=== PATIENT | male | born 1960 | race Caucasian/White ===

== ENCOUNTER → 2018-07-18 09:25 | Outpatient (CLI) | payer OTHER, SELFPAY ==
[2018-07-18 11:50] LABS: Absolute Lymphocyte Count 1.32 X10^3/ul (0.83-4.51); Absolute Neutrophil Count 2.9 X10^3/uL (2.0-7.7); Basophil# 0.02 X10^3/uL; Basophil% 0.4 % (0-1); Eosinophil# 0.16 X10^3/uL; Eosinophils% 3.3 % (0-5); Hematocrit 44.5 % (40-54); Lymphocyte # 1.32 X10^3/ul (4.0); Lymphocyte % 27.1 % (19-41); Mean Corp Hgb Conc 33.7 g/gl (32-36); Mean Corpuscular Hgb 31.1 pg (27.0-32.0); Mean Corpuscular Volume 92.1 fL (80-94); Mean Platelet Vol. 10.6 fl (6.2-12.0); Monocyte# 0.49 X10^3/uL; Monocyte% 10.1 % (0-10); Neutrophil # 2.86 X10^3/uL (2.7-7.7); Neutrophil % 58.7 % (47-70); Platelet Count 235 K/mm3 (150-450); RBC Distribution Width CV 13.1 % (11.6-14.6); RBC Distribution Width SD 43.3 fl (35.1-43.9); Red Blood Count 4.83 M/mm3 (4.6-6.2); White Blood Count 4.9 K/mm3 (4.4-11.0)
[2018-07-18 11:51] LABS: POSITIVE COUNT NO; POSITIVE DIFFERENTIAL NO; POSITIVE MORPHOLOGY NO
[2018-07-18 12:00] LABS: AST(SGOT) 22 U/L (15-37); Alanine Aminotransfer ALT/SGPT 37 U/L (16-61); Albumin, Serum 3.6 g/dL (3.2-5.0); Alkaline Phosphatase 64 U/L (45-117); Amylase 39 U/L (25-115); Anion Gap 10 (5-15); BUN 14 mg/dL (7-18); BUN/Creat Ratio 12.5 RATIO (10-20); Calcium,Total 8.7 mg/dL (8.5-10.1); Chloride 106 mmol/L (98-107); Creatinine, Serum 1.12 mg/dL (0.70-1.30); EST Glomerular Filtration Rate 71 mL/min (>60); Est Glom Filt Rate - Afr Amer 86 mL/min (>60); Globulin 3.5 g/dL (2.2-4.2); Glucose 86 mg/dL (74-106); Potassium 4.3 mmol/L (3.5-5.1); Protein, Total 7.1 g/dL (6.4-8.2); Sodium Level 142 mmol/L (136-145)
== END ==
PROVIDERS: Family Provider Family Medicine; PCP Family Medicine; Visit Provider Family Medicine
DX: R10.10 Upper abdominal pain, unspecified (principal)
CPT/HCPCS: 36415; 80053; 82150; 85025

== ENCOUNTER → 2018-07-21 07:23 | Outpatient (CLI) | payer OTHER, SELFPAY ==
--- NOTE | 2018-07-21 07:27 | US_ITS ---
HISTORY: UPPER ABD PAIN X 3 MONTHS TECHNIQUE: Smith scale and color doppler imaging was performed of the gallbladder. COMPARISON: None FINDINGS: The gallbladder shows normal distention and is without internal echoes, wall thickening, or pericholecystic edema. The common duct measures 4 mm in diameter which is normal. No intrahepatic biliary dilatation. With reference to the right kidney, the liver shows generalized increased echogenicity compatible with fatty infiltration. No focal hepatic lesions seen. No ascites. Poor visualization of the pancreas. The right kidney is visualized. No hydronephrosis. A 1.9 cm parapelvic cyst of the right kidney is suggested. US/Abdomen Limited IMPRESSION: 1. Normal gallbladder ultrasound. No biliary dilatation or acute disease identified. 2. Fatty liver. at 7378 Reported and signed by: Angel Wiley MD Electronically Signed: Angel Wiley, at 3:35 EDT Tel , Service support ,
== END ==
PROVIDERS: Family Provider Family Medicine; PCP Family Medicine; Referring Provider Family Medicine; Visit Provider Family Medicine
DX: R10.10 Upper abdominal pain, unspecified (principal)
CPT/HCPCS: 76705

== ENCOUNTER → 2018-08-18 09:54 | Outpatient (CLI) | payer OTHER, SELFPAY ==
--- NOTE | 2018-08-18 09:56 | RAD_ITS ---
STUDY: X-RAY - LEFT TIBIA AND FIBULA REASON FOR EXAM: Male, 58 years old. Mid shaft left tibia/fibula struck with sledgehammer couple of days ago. Redness and pain. TECHNIQUE: 3 view(s) of the tibia and fibula were obtained. COMPARISON: None. FINDINGS: Osseous structures intact. There appears to be mild induration in the subcutaneous fat anterior to the mid tibia. Unremarkable appearance of the evaluated portions of the knee joint and ankle joint. RAD/Tibia & Fibula 2 Views IMPRESSION: Mild superficial soft tissue contusion is suspected. No fracture. Electronically Signed: Tomas Rodriguez MD at 11:03 EST Tel , Service support ,
--- OUTSIDE RECORDS SUMMARY | 2018-10-13 05:05 | XMS RPT_ITS ---
:1960 Author Organization [facility] Care Team Providers Name Role Phone Jordin Parr Attending Unavailable Keshav, Jordin Referring Unavailable Parr, Jordin Primary Care Unavailable Jordin Parr Attending Unavailable Parr, Jordin Referring Unavailable Parr, Jordin Primary Care Unavailable Jordin Parr Attending Unavailable Parr, Jordin Primary Care Unavailable PROBLEMS PROBLEMS DATE TYPE CONDITION / CODE ATTENDING STATUS SOURCE 07/18/2018 Unknown R10.10 - Upper Jordin Parr Active [place] abdominal pain, Community unspecified / Hospital R10.10(ICD-10) Repository PROCEDURES PROCEDURES No Procedure Records FoundRESULTS RESULTS TIBIA AND FIBULA Observed: 08/18/2018 Status: F Source: [place] 2 VIEWS 9:[place] [facility] [place] [facility] Imaging Services [address] [place] [address] Tibia AND Fibula 2 Views MR#: [id number] Acct: [id number] Name: BERNARD CABELLO Rep #: [id number] : 1960 M 58 From: Tomas Rodriguez MD PCP: Jordin Parr MD Status: REG CLI Study: Tibia AND Fibula 2 Views Date of Exam: 08/18/18 Exam# [id number] Ordering Dr: Jordin Parr MD STUDY: X-RAY - LEFT TIBIA AND FIBULA REASON FOR EXAM: Male, 58 years old. Mid shaft left tibia/fibula struck with sledgehammer couple of days ago. Redness and pain. TECHNIQUE: 3 view(s) of the tibia and fibula were obtained. COMPARISON: None. FINDINGS: Osseous structures intact. There appears to be mild induration in the subcutaneous fat anterior to the mid tibia. Unremarkable appearance of the evaluated portions of the knee joint and ankle joint. RAD/Tibia AND Fibula 2 Views IMPRESSION: Mild superficial soft tissue contusion is suspected. No fracture. Electronically Signed: Tomas Rodriguez MD at 11:03 EST Tel , Service support , CC: Jordin Parr MD Business Development Officer: Signed ABDOMEN LIMITED Observed: 07/21/2018 Status: F Source: [place] 7:27 AM [facility] [place] [facility] Imaging Services [address] [place] [address] Abdomen Limited MR#: [id number] Acct: [id number] Name: BERNARD CABELLO Rep #: [id number] : 1960 M 57 From: Angel Wiley MD PCP: Jordin Parr MD Status: REG CLI Study: Abdomen Limited Date of Exam: 07/21/18 Exam# [id number] Ordering Dr: Jordin Parr MD HISTORY: UPPER ABD PAIN X 3 MONTHS TECHNIQUE: Smith scale and color doppler imaging was performed of the gallbladder. COMPARISON: None FINDINGS: The gallbladder shows normal distention and is without internal echoes, wall thickening, or pericholecystic edema. The common duct measures 4 mm in diameter which is normal. No intrahepatic biliary dilatation. With reference to the right kidney, the liver shows generalized increased echogenicity compatible with fatty infiltration. No focal hepatic lesions seen. No ascites. Poor visualization of the pancreas. The right kidney is visualized. No hydronephrosis. A 1.9 cm parapelvic cyst of the right kidney is suggested. US/Abdomen Limited IMPRESSION: 1. Normal gallbladder ultrasound. No biliary dilatation or acute disease identified. 2. Fatty liver. at 0337 Reported and signed by: Angel Wiley MD Electronically Signed: Angel Wiley, at 3:35 EDT Tel , Service support , CC: Jordin Parr MD Business Development Officer: Signed CBC W/DIFF, AUTOMATED Collected: 07/18/2018 Status: F Source: [place] 9:26 AM [facility] [place] TYPE CODE TESTS RESULT OUT OF RANGE REFERENCE UNITS LAB L100.1000 4.4-11.0 K/mm3 Normal WBC 4.9 LAB L100.1200 4.6-6.2 M/mm3 Normal RBC 4.83 LAB L100.1300 13.0-16.5 g/dl Normal HGB 15.0 LAB L100.1400 40-54 % Normal HCT 44.5 LAB L100.1500 80-94 fL Normal MCV 92.1 LAB L100.1600 27.0-32.0 pg Normal MCH 31.1 LAB L100.1700 32-36 g/gl Normal MCHC 33.7 LAB L100.1810 11.6-14.6 % Normal RDW CV 13.1 LAB L100.1820 35.1-43.9 fl Normal RDW SD 43.3 LAB L100.1900 150-450 K/mm3 Normal PLT 235 LAB L100.2000 6.2-12.0 fl Normal MPV 10.6 LAB L100.2100 47-70 % Normal NEUT% 58.7 LAB L100.2200 19-41 % Normal LY% 27.1 LAB L100.2300 0-10 % High MONO% 10.1 LAB L100.2400 0-5 % Normal EO% 3.3 LAB L100.2500 0-1 % Normal BASO% 0.4 LAB L100.2550 0.0-0.9 % Normal IM GRAN % 0.400 Result Comment: IG% - Immature Granulocytes (promyelocytes, myelocytes and metamyelocytes) > 1% indicates that a LEFT SHIFT is Present. LAB L100.2620 2.0-7.7 X10 3/uL Normal Absolute Neut 2.9 LAB L100.2720 0.83-4.51 X10 3/ul Normal Absolute Lymph 1.32 Performed By: #### L100.0100, L500.4050, L501.2400 #### [facility] [address] [place], [place], [id number] COMPREHENSIVE METABOLIC Collected: 07/18/2018 Status: F Source: [facility] 9:26 AM [facility] [place] TYPE CODE TESTS RESULT OUT OF RANGE REFERENCE UNITS LAB L501.0100 74-106 mg/dL Normal GLU 86 Result Comment: Please note revised GLUCOSE reference range effective 2017. LAB L501.1000 7-18 mg/dL Normal BUN 14 LAB L501.1100 0.70-1.30 mg/dL Normal CREAT,SERUM 1.12 Result Comment: The validity of the calculated GFR AND GFRAA in patients over 70 years has not been determined. Clinical correlation is essential. LAB L501.1110 >60 mL/min Normal EST GFR 71 Result Comment: Non- GFR Calc LAB L501.1115 >60 mL/min Normal EST GFR - AA 86 Result Comment: GFR Calc LAB L501.1300 10-20 RATIO Normal BUN/CRE 12.5 LAB L501.1500 6.4-8.2 g/dL T Normal PROT 7.1 LAB L501.1800 3.2-5.0 g/dL Normal ALB 3.6 LAB L501.1950 2.2-4.2 g/dL Normal GLOB 3.5 LAB L501.2000 0.9-2.4 RATIO Normal A/G 1.0 LAB L501.2200 8.5-10.1 mg/dL CA Normal 8.7 LAB L501.4100 15-37 U/L Normal AST 22 LAB L501.4305 45-117 U/L Normal ALK P 64 LAB L501.4405 16-61 U/L Normal ALT 37 LAB L501.4600 0.20-1.00 mg/dL T Normal BILI 0.70 LAB L501.5300 136-145 mmol/L NA Normal 142 LAB L501.5600 3.5-5.1 mmol/L K Normal 4.3 LAB L501.5900 98-107 mmol/L CL Normal 106 LAB L501.6100 21.0-32.0 mmol/L Normal CO2 26.0 LAB L501.6200 5-15 Normal GAP 10 Performed By: #### L100.0100, L500.4050, L501.2400 #### [facility] [address] [place], [address] AMYLASE Collected: 07/18/2018 Status: F Source: [place] 9:26 AM [facility] [place] TYPE CODE TESTS RESULT OUT OF RANGE REFERENCE UNITS LAB L501.2400 25-115 U/L Normal GONZALES 39 Performed By: #### L100.0100, L500.4050, L501.2400 #### [facility] [address] [facility] [place], [address] ALLERGIES ALLERGIES No Allergies Records FoundENCOUNTERS ENCOUNTERS ADMIT/DISCHARGE ACCOUNT ADMITTING ENCOUNTER LOCATION SOURCE NUMBER CLASS 08/18/2018 [id number] [facility] 0 [facility] ing:[facility] Repository 07/21/2018 [id number] [facility] 7 [facility] ing: Repository 07/18/2018 [id number] [facility] 7 [facility] ing:[facility] Repository PAYERS PAYERS ENCOUNTER GUARANTOR PAYER SUBSCRIBER SOURCE 08/18/2018 BERNARD A Primary BERNARD A [place] [id number] CR Insurance:MEDICAL GALBRAITHDOB: [address] [id number] [address]Ayk: Number: Repository [id number] (HP) Date:2228-20-37[address], [place] [address]IP: 08/18/2018 Secondary NOT GIVENUNK [place] Insurance:SELF PAY [facility] Number: Effective Repository Date:2018-08-18 07/21/2018 BERNARD A Primary BERNARD A [place] [id number] CR Insurance:MEDICAL GALBRACLEVELAND CLINICDOB: [address] [id number] [address]Lyv: Number: Repository [id number] () Date:3390-62-15[address], [place] [address]RG: 07/21/2018 Secondary NOT GIVENUNK [place] Insurance:SELF PAY [facility] Number: Effective Repository Date:2018-07-18 07/18/2018 Bernard A Primary Bernardchivo [place] [id number] Insurance[facility] [id number], Number: Repository [place] [id number]: [id number] Date:[id number] BOX () [address] [place] [address]YB: 07/18/2018 Secondary NOT GIVENUNK [place] Insurance:SELF PAY [facility] Number: Effective Repository Date:2018-07-18
== END ==
PROVIDERS: Family Provider Family Medicine; PCP Family Medicine; Referring Provider Family Medicine; Visit Provider Family Medicine
DX: S80.12XA Contusion of left lower leg, initial encounter (principal)
CPT/HCPCS: 73590

== ENCOUNTER → 2020-05-09 | Outpatient (CLI) | payer OTHER, SELFPAY ==
[2020-05-09 10:11] LABS: Absolute Lymphocyte Count 1.07 X10^3/uL (0.83-4.51); Absolute Neutrophil Count 3.2 X10^3/uL (2.0-7.7); Basophil# 0.03 X10^3/uL; Basophil% 0.6 % (0-1); Eosinophil# 0.25 X10^3/uL; Hemoglobin 14.4 g/dL (13.0-16.5); Lymphocyte # 1.07 X10^3/ul (4.0); Lymphocyte % 21.4 % (19-41); Mean Corp Hgb Conc 32.7 g/dL (32-36); Mean Corpuscular Hgb 30.6 pg (27.0-32.0); Mean Corpuscular Volume 93.4 fL (80-94); Mean Platelet Vol. 10.6 fl (6.2-12.0); Monocyte# 0.42 X10^3/uL; Monocyte% 8.4 % (0-10); NRBC Flagged by Analyzer 0 % (0-5); Neutrophil # 3.22 X10^3/uL (2.7-7.7); Neutrophil % 64.2 % (47-70); Platelet Count 231 K/mm3 (150-450); RBC Distribution Width CV 12.7 % (11.6-14.6); RBC Distribution Width SD 43.9 fl (35.1-43.9); Red Blood Count 4.71 M/mm3 (4.6-6.2)
[2020-05-09 10:18] LABS: Anion Gap 3 (5-15); BUN 14 mg/dL (7-18); BUN/Creat Ratio 10.8 RATIO (10-20); Calcium,Total 8.5 mg/dL (8.5-10.1); Chloride 110 mmol/L (98-107); Cholesterol 157 mg/dL (200); EST Glomerular Filtration Rate 60 mL/min (>60); Est Glom Filt Rate - Afr Amer 72 mL/min (>60); Glucose 85 mg/dL (74-106); High Density Lipoprotein 38 mg/dL; Potassium 4.1 mmol/L (3.5-5.1); Sodium Level 141 mmol/L (136-145); Triglycerides 197 mg/dL; Very Low Density Lipoprotein 39 mg/dL (5-40)
[2020-05-09 10:34] LABS: Partial Thromboplast Time 46.9 Seconds (24.1-36.2)
[2020-05-13 09:36] LABS: Dilute Prothrombin Time (dPT) 57.6 sec (0.0-55.0); Dilute Russell Viper Venom 174.4 sec (0.0-47.0); Hexagonal Phase Phospholipid 2 5 sec (0-11); PTT-LA Mix 53.6 sec (0.0-48.9); Protein C Antigen 102 % (60-150); Protein C, Functional 142 % (73-180); Thrombin Time 18.9 sec (0.0-23.0); dPT Confirm Ratio 0.76 Ratio (0.00-1.40)
[2020-05-13 10:48] LABS: Antithrombin 3 Function 127 % (75-135); Interpretation Comment: (.)
== END | disposition home or self-care (01) ==
PROVIDERS: PCP Family Medicine; Referring Provider Family Medicine; Visit Provider Family Medicine
DX: I26.99 Other pulmonary embolism without acute cor pulmonale (principal); Z13.220 Encounter for screening for lipoid disorders; Z13.1 Encounter for screening for diabetes mellitus
CPT/HCPCS: 36415; 80048; 80061; 85025; 85300; 85302; 85303; 85305; 85306; 85730

== ENCOUNTER → 2020-05-30 | Outpatient (CLI) | payer OTHER, SELFPAY ==
[2020-05-30 18:14] LABS: PSA,Total - Annual Screen 0.44 ng/mL (0.00-4.00)
== END | disposition home or self-care (01) ==
LOC: MTLAB 14:20
PROVIDERS: PCP Family Medicine; Referring Provider Family Medicine; Visit Provider Family Medicine
DX: Z12.5 Encounter for screening for malignant neoplasm of prostate (principal)
CPT/HCPCS: 36415; 84153; G0103

== ENCOUNTER → 2022-01-28 | Outpatient (CLI) | payer OTHER, SELFPAY ==
[2022-01-28 07:29] LABS: Absolute Neutrophil Count 2.9 X10^3/uL (2.0-7.7); Basophil# 0.04 X10^3/uL; Basophil% 0.7 % (0-1); Eosinophil# 0.25 X10^3/uL; Eosinophils% 4.6 % (0-5); Hematocrit 44.5 % (40-54); Hemoglobin 14.7 g/dL (13.0-16.5); Lymphocyte % 31.3 % (19-41); Mean Corpuscular Hgb 30.4 pg (27.0-32.0); Mean Corpuscular Volume 91.9 fL (80-94); Mean Platelet Vol. 10.1 fl (6.2-12.0); Monocyte# 0.55 X10^3/uL; Monocyte% 10.1 % (0-10); NRBC Flagged by Analyzer 0 % (0-5); Neutrophil # 2.88 X10^3/uL (2.7-7.7); Neutrophil % 53.1 % (47-70); Platelet Count 255 K/mm3 (150-450); RBC Distribution Width CV 12.7 % (11.6-14.6); RBC Distribution Width SD 42.5 fl (35.1-43.9); Red Blood Count 4.84 M/mm3 (4.6-6.2); White Blood Count 5.4 K/mm3 (4.4-11.0)
[2022-01-28 07:58] LABS: AST(SGOT) 22 U/L (15-37); Alanine Aminotransfer ALT/SGPT 32 U/L (16-61); Albumin, Serum 3.6 g/dL (3.2-5.0); Alkaline Phosphatase 62 U/L (45-117); Anion Gap 5 (5-15); BUN 18 mg/dL (7-18); BUN/Creat Ratio 16.5 RATIO (10-20); Calcium,Total 8.8 mg/dL (8.5-10.1); Chloride 107 mmol/L (98-107); Cholesterol 161 mg/dL (200); Creatinine, Serum 1.09 mg/dL (0.70-1.30); EST Glomerular Filtration Rate 73 mL/min (>60); Est Glom Filt Rate - Afr Amer 88 mL/min (>60); Globulin 3.6 g/dL (2.2-4.2); Glucose 95 mg/dL (74-106); High Density Lipoprotein 37 mg/dL; Protein, Total 7.2 g/dL (6.4-8.2); Sodium Level 139 mmol/L (136-145); Thyroid Stim Hormone (TSH) 1.98 uIU/mL (0.358-3.74); Triglycerides 178 mg/dL; Very Low Density Lipoprotein 36 mg/dL (5-40)
== END | disposition home or self-care (01) ==
LOC: LAB 06:11
PROVIDERS: Referring Provider Registered Nurse; Visit Provider Registered Nurse
DX: R00.2 Palpitations (principal)
CPT/HCPCS: 36415; 80053; 80061; 84439; 84443; 85025

== ENCOUNTER → 2022-04-16 | Outpatient (CLI) | payer OTHER, SELFPAY ==
--- NOTE | 2022-04-16 12:50 | ECHOD_ITS ---
Reason For Study: Ventricular Premature Depolarization Procedure This was a 2D Doppler, Color Flow transthoracic echocardiogram. Exam performed in department. Left Ventricle Normal LV size. The estimated ejection fraction is 60 %. No evidence for diastolic dysfunction. No regional wall motion abnormalities noted. Right Ventricle Normal RV size. Normal systolic function. Atria Normal left atrium. Normal right atrium. No doppler evidence for ASD. Mitral Valve There is no mitral valve stenosis. No mitral valve insufficiency. Tricuspid Valve There is no tricuspid stenosis. Trivial tricuspid valve insufficiency. Pulmonary artery systolic pressure is 25 mmHg. Aortic Valve Trisinus/trileaflet aortic valve. There is no aortic stenosis. Trivial aortic valve insufficiency. Pulmonic Valve There is no pulmonic valvular stenosis. No pulmonic valve insufficiency. Great Vessels Normal aortic root. Pericardium/Pleural No pericardial effusion. MMode/2D Measurements & Calculations LVIDd: 4.7 cm IVSd: 0.90 cm Ao root diam: 3.2 cm LVIDs: 3.2 cm LVPWd: 1.2 cm LA dimension: 4.0 cm RVDd: 3.7 cm FS: 32.5 % LAV(MOD-bp): 53.0 ml LA A4 area: 18.4 cm2 RA A4 area: 14.6 cm2 LAV(MOD-bp) Indexed: 22.0 ml/m2 LAV(MOD-sp2): 54.6 ml LAV(MOD-sp4): 47.3 ml Time Measurements MV dec time: 0.25 sec Doppler Measurements & Calculations MV E max delon: 51.8 cm/sec MV V2 max: 59.7 cm/sec MV P1/2t max delon: 55.1 cm/sec MV A max delon: 64.2 cm/sec MV max P.4 mmHg MV P1/2t: 80.9 msec MV E/A: 0.81 MV V2 mean: 35.7 cm/sec MV dec slope: 199.4 cm/sec2 MV mean P.59 mmHg MVA(P1/2t): 2.7 cm2 MV V2 VTI: 19.3 cm Ao V2 max: 114.7 cm/sec LV V1 max: 102.2 cm/sec PA V2 max: 164.2 cm/sec Ao max P.3 mmHg LV V1 max P.2 mmHg PA V2 mean: 110.3 cm/sec Ao V2 mean: 77.5 cm/sec LV V1 mean P.3 mmHg Ao mean P.8 mmHg LV V1 mean: 71.1 cm/sec Ao V2 VTI: 24.2 cm LV V1 VTI: 22.3 cm TR max delon: 223.6 cm/sec TR max P.0 mmHg ECHO/Echo Complete Interpretation Summary The estimated ejection fraction is 60 %. No evidence for diastolic dysfunction. Trivial aortic valve insufficiency. Ordering Physician: Makenzie Haddad Referring Physician: Makenzie Haddad Performed By: Wilberto Delacruz RCS
== END | disposition home or self-care (01) ==
PROVIDERS: PCP Nurse Practitioner Family; Referring Provider Family Medicine; Visit Provider Family Medicine
DX: I49.3 Ventricular premature depolarization (principal)
CPT/HCPCS: 93306

== ENCOUNTER → 2022-07-05 | Outpatient (CLI) | payer OTHER, SELFPAY ==
--- NOTE | 2022-07-05 11:20 | STRESSREP_ITS ---
Stress Test Report Date: 07-05-2022 Procedure: Exercise tolerance test/imaging study Indications: Shortness of breath/dyspnea on exertion; fatigue; palpitations; paroxysmal ventricular tachycardia; MARISOL Consent: Per the patient Procedure: The patient exercised on a Jakob protocol for 9 minutes completing Stage III achieving a peak heart rate of 146 bpm (92% predicted maximal heart rate) with resting blood pressure of 116/80 mmHg and a peak blood pressure 164/72 mmHg and a peak MET capacity of 10 METs. The baseline ECG demonstrated normal sinus rhythm. The peak exercise ECG demonstrated no obvious ECG change. There was an isolated PVC and an isolated ventricular couplet during exercise. The functional capacity was considered good. There was no complaint of chest discomfort during exercise or recovery. The examination was discontinued secondary to dyspnea. Impression: 1. Technically adequate (percent predicted maximal heart rate greater than 85%) exercise tolerance test 2. Peak exercise ECG with no obvious ECG changes 3. There were no cardiac dysrhythmias pretest, during exercise, or recovery 4. Nuclear images pending Myocardial perfusion imaging study: Technique: The patient was injected with 14.7 mCi of technetium 99m Cardiolite and subsequently rest SPECT Cardiolite nuclear imaging was obtained in the horizontal long, vertical long, and short axis views. The patient exercised on a Jakob protocol for 9 minutes completing Stage III achieving a peak heart rate of 146 bpm (92% predicted maximal heart rate) with resting blood pressure of 116/80 mmHg and a peak blood pressure 164/72 mmHg and a peak MET capacity of 10 METs. The patient was injected with 44.5 mCi of technetium 99m Cardiolite and subsequently stress SPECT Cardiolite nuclear imaging was obtained in the horizontal long, vertical long, and short axis views. A gated Cardiolite study at peak stress was obtained. Interpretation: Rest and stress SPECT Cardiolite nuclear imaging status post realignment, normalization, and attenuation correction, demonstrates at rest the appearance of a small area of diminished myocardial perfusion/tracer uptake in the distal anterior lateral segments which appears to improve/normalize following stress. There is end systolic thickening and brightening. The gated Cardiolite study demonstrates myocardial thickening and inward wall motion. The reported LVEF is 66%. Impression: 1. Rest and stress SPECT Cardiolite nuclear imaging demonstrate resting myocardial perfusion changes which appear to improve/normalize following stress appearing compatible with shifting soft tissue attenuation/artifact with no myocardial perfusion changes considered diagnostic for associated stress-induced myocardial ischemia. 2. The gated Cardiolite study reports an LVEF of 66%. This note was generated with [employer] software. It may contain incorrect words, spelling, and punctuation that were not noted in checking the note before signing.
== END | disposition home or self-care (01) ==
LOC: CVS 06:21
PROVIDERS: PCP Family Medicine; Referring Provider Internal Medicine Cardiovascular Disease; Visit Provider Internal Medicine Cardiovascular Disease
DX: I47.20 Ventricular tachycardia, unspecified (principal); R00.2 Palpitations; I49.3 Ventricular premature depolarization; R06.02 Shortness of breath
CPT/HCPCS: 78452; 93017; A9500; A4216

== ENCOUNTER → 2022-07-09 | Outpatient (CLI) | payer OTHER, SELFPAY | END | disposition home or self-care (01) | LOC: SL 21:32 | PROVIDERS: PCP Family Medicine; Visit Provider Nurse Practitioner Acute Care | DX: G47.33 Obstructive sleep apnea (adult) (pediatric) (principal) | CPT/HCPCS: 95811 ==

== ENCOUNTER → 2022-07-28 | Outpatient (CLI) | payer OTHER, SELFPAY | END | disposition home or self-care (01) | LOC: SL 09:20 | PROVIDERS: PCP Family Medicine; Referring Provider Nurse Practitioner Acute Care; Visit Provider Nurse Practitioner Acute Care | DX: Z00.00 Encounter for general adult medical examination without abnormal findings (principal) ==

== ENCOUNTER → 2024-03-09 | Outpatient (CLI) | payer OTHER, SELFPAY ==
[2024-03-09 10:08] LABS: Absolute Lymphocyte Count 1.35 X10^3/uL (0.83-4.51); Absolute Neutrophil Count 3.3 X10^3/uL (2.0-7.7); Basophil# 0.04 X10^3/uL; Basophil% 0.7 % (0-1); Eosinophils% 3.7 % (0-5); Hematocrit 43.9 % (40-54); Hemoglobin 14.3 g/dL (13.0-16.5); Lymphocyte # 1.35 X10^3/ul (0.83-4.51); Lymphocyte % 25.1 % (19-41); Mean Corp Hgb Conc 32.6 g/dL (32-36); Mean Corpuscular Volume 92.2 fL (80-94); Mean Platelet Vol. 10.4 fl (6.2-12.0); Monocyte# 0.51 X10^3/uL; Monocyte% 9.5 % (0-10); NRBC Flagged by Analyzer 0 % (0-5); Neutrophil # 3.26 X10^3/uL (2.7-7.7); Neutrophil % 60.8 % (47-70); Platelet Count 245 K/mm3 (150-450); RBC Distribution Width CV 12.5 % (11.6-14.6); RBC Distribution Width SD 42.5 fl (35.1-43.9); Red Blood Count 4.76 M/mm3 (4.6-6.2); White Blood Count 5.4 K/mm3 (4.4-11.0)
[2024-03-09 10:40] LABS: Vitamin D,25 Hydroxy 40.2 ng/mL
[2024-03-09 10:59] LABS: AST(SGOT) 22 U/L (15-37); Alanine Aminotransfer ALT/SGPT 30 U/L (16-61); Albumin, Serum 3.5 g/dL (3.2-5.0); Alkaline Phosphatase 69 U/L (45-117); Anion Gap 4 (5-15); BUN 19 mg/dL (7-18); Calcium,Total 8.8 mg/dL (8.5-10.1); Chloride 107 mmol/L (98-107); Cholesterol 161 mg/dL (200); Creatinine, Serum 1.12 mg/dL (0.70-1.30); EST Glomerular Filtration Rate 70 mL/min (>60); Est Glom Filt Rate - Afr Amer 85 mL/min (>60); Globulin 3.6 g/dL (2.2-4.2); Glucose 95 mg/dL (74-106); High Density Lipoprotein 38 mg/dL; PSA,Total - Annual Screen 1.12 ng/mL (0.00-4.00); Potassium 4.1 mmol/L (3.5-5.1); Protein, Total 7.1 g/dL (6.4-8.2); Sodium Level 138 mmol/L (136-145); Thyroid Stim Hormone (TSH) 1.97 uIU/mL (0.358-3.74); Triglycerides 175 mg/dL; Very Low Density Lipoprotein 35 mg/dL (5-40)
== END | disposition home or self-care (01) ==
LOC: MTLAB 07:20
PROVIDERS: PCP Family Medicine; Referring Provider Family Medicine; Visit Provider Family Medicine
DX: G47.33 Obstructive sleep apnea (adult) (pediatric) (principal); Z13.220 Encounter for screening for lipoid disorders; Z13.1 Encounter for screening for diabetes mellitus; N62 Hypertrophy of breast; R63.5 Abnormal weight gain; Z12.5 Encounter for screening for malignant neoplasm of prostate; Z13.21 Encounter for screening for nutritional disorder
CPT/HCPCS: 36415; 80053; 80061; 82306; 84153; 84403; 84443; 85025; G0103

== ENCOUNTER 2024-04-20 08:47 | Day surgery (SDC) | payer OTHER, SELFPAY ==
[2024-04-20] VITALS (9 sets, daily range): BP systolic 99–118; BP diastolic 57–87; PULSE 63–76; RESP 16–18; TEMP 35.8–36.6; O2SAT 92–99; BMI 35.3
[2024-04-20] MEDS: Lactated Ringers 1,000 ML 15 ML IV (09:20)
--- NOTE | 2024-04-20 09:41 | PRE.ANES_ITS ---
ASA Classification* ASA Classification ASA Classification: 3 Assessment & Plan Anesthesia* Anesthesia Assessment Anesthesia Assessment: Discussed sedation and/or anesthesia options, risks, benefits, and alternatives with patient/parents/legal guardian/POA. Questions invited. The patient/parents/legal guardian/POA seems to understand and agrees to proceed with anesthesia plan. Reviewed the physical assessment, medical history, allergy history and patient home medications list prior to surgery/procedure/anesthetic and documented any changes. Performed airway and anesthesia risk assessments. Anesthesia Type Anesthesia Type: MAC Anesthesia Focused Assessment* Temperature: 96.5 F Pulse Rate: 76 Blood Pressure: 118/87 Respiratory Rate: 16 Pulse Ox: 95 Airway Assessment Mouth opens: >3 cm Mallampati Score: II Focused Labs Anesthesia Preop lab: CBC WBC 5.4 K/mm3 (4.4-11.0) 03/09/24 07:23 RBC 4.76 M/mm3 (4.6-6.2) 03/09/24 07:23 Hgb 14.3 g/dL (13.0-16.5) 03/09/24 07:23 Hct 43.9 % (40-54) 03/09/24 07:23 Plt Count 245 K/mm3 (150-450) 03/09/24 07:23 CHEMISTRY Potassium 4.1 mmol/L (3.5-5.1) 03/09/24 07:23 Sodium 138 mmol/L (136-145) 03/09/24 07:23 BUN 19 mg/dL (7-18) H 03/09/24 07:23 Creatinine 1.12 mg/dL (0.70-1.30) 03/09/24 07:23 Glucose 95 mg/dL (74-106) 03/09/24 07:23 TSH 1.97 uIU/mL (0.358-3.74) 03/09/24 07:23 COAG Pre-Assessment Diagnosis/Proposed Procedure Planned Operative Procedure(s): CSCOPE Anesthesia History 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 When Was Last Pacemaker Check QUESTION #4 FULL TEXT: You/Your Family Experience fever (hyperthermia) with Anesthesia Last Oral Intake Last Oral intake: Last Oral Intake NPO since 05:00 04/20/24 09:16 Meds taken in AM with sips of No 04/20/24 09:16 water? Meds patient instructed to take am of surgery PONV PONV - foundry manager: PONV - foundry manager Female No 04/17/24 09:28 HX of Motion Sickness No 04/17/24 09:28 HX of N/V After Surgery No 04/17/24 09:28 Non-Smoker Yes 04/17/24 09:28 Duration of Surgery greater No 04/17/24 09:28 than 60 minutes Number of Risk Factors 1 04/17/24 09:28 PONV Score Low Risk 04/17/24 09:28 Height & Weight Height & Weight: Anesthesia: Height & Weight Height 6 ft 1 in 04/20/24 09:16 Weight: 121.4 kg 04/20/24 09:16 Body Mass Index (BMI) 35.3 04/20/24 09:16 Respiratory Assessment Respiratory Assessment - foundry manager: Respiratory Tract Infection Hx - foundry manager Hx Respiratory Tract Infection No 04/17/24 09:28 STOP Sleep Apnea STOP Sleep Apnea - foundry manager: STOP Sleep Apnea - foundry manager Hx Hypertension No 04/17/24 09:28 Hx Sleep Apnea Yes 04/17/24 09:28 CPAP No 04/17/24 09:28 BIPAP Yes 04/17/24 09:28 Do you snore loudly (louder No 04/17/24 09:28 than talking or can be heard Do you often feel tired/ No 04/17/24 09:28 fatigued/ sleepy during daytime? Has anyone observed you stop No 04/17/24 09:28 breathing during sleep? STOP Results Positive 04/17/24 09:28 QUESTION #5 FULL TEXT : Do you snore loudly (louder than talking or can be heard through closed doors)? 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 Specify any problems Hx of Preganancy in last 3 N/A 04/17/24 09:28 Months Nurse Filling Out Transfusion NBUCHER 04/17/24 09:28 & Questions: Date: 04/17/24 04/17/24 09:28 Time: 09:29 04/17/24 09:28 Patient unable to answer at this time (ie. confused, unrespo /Reproduction History /Reproductive History - foundry manager: /Reproductive Hx- foundry manager Hx Now No 04/17/24 09:28 Gestational Age (in weeks): EDC: Hx Hx Para Hx Section SAB No 04/17/24 09:28 Active Medications Active Medications: Current Medications Generic Name Dose Route Start Last Admin Trade Name Freq PRN Reason Stop Dose Admin Lactated Ringer's 1,000 mls @ 15 mls/hr 04/20/24 09:30 04/20/24 09:20 IV 15 mls/hr .Q48H AAKASH Administration PFSH Medical History Wears glasses Pulmonary embolism DVT (deep venous thrombosis) Non-smoker History of edema BiPAP (biphasic positive airway pressure) dependence Sleep apnea History of stress test History of echocardiogram Cardiology follow-up encounter MARISOL treated with BiPAP Dyspnea on exertion MARISOL (obstructive sleep apnea) Premature ventricular contraction Pulmonary embolism and infarction Hx of blood clots Cyst Epidermoid cyst of skin of chest Sleep apnea Home Medications ?Medication ?Instructions ?Recorded ?Last Taken ?Type rivaroxaban 20 mg tablet 20 mg PO DAILY 09/08/20 04/14/24 History multivitamin 1 tab PO DAILY 04/13/24 04/13/24 History Allergy/AdvReac Type Severity Reaction Status Date / Time No Known Allergies Allergy Verified 04/20/24 09:15 Family History Father Cancer Lung Surgical History Hx of colonoscopy History of incision and drainage Social History household members: spouse current occupational status: employed Smoking Status: Never smoker second hand exposure: No alcohol intake: never substance use type: does not use caffeine: Yes Review of Systems (Anesthesia) ROS Narrative System reviewed and no additional complaints, except as documented.
--- NOTE | 2024-04-20 10:16 | H&P.OPEN ---
[facility] - General General Date of Service: 04/20/24 Chief Complaint: Open access colonoscopy HPI Narrative BERNARD CABELLO, is a 63 M who presents screening colonoscopy. He confirms his preappointment questionnaire that he has not experienced any change in her bowel habits-and particularly denies any notice of blood. He also denies any family history of GI illness to include diverticulitis, inflammatory bowel disease, or colon cancer. Lastly he confirms that his prep was completed successfully and that his output is now clear. Specific to his health history, Mr. Cabello confirms that he has held his anticoagulation with Xarelto for 1 week prior to today's procedure. [facility] Medical History Wears glasses Pulmonary embolism DVT (deep venous thrombosis) Non-smoker History of edema BiPAP (biphasic positive airway pressure) dependence Sleep apnea History of stress test History of echocardiogram Cardiology follow-up encounter MARISOL treated with BiPAP Dyspnea on exertion MARISOL (obstructive sleep apnea) Premature ventricular contraction Pulmonary embolism and infarction Hx of blood clots Cyst Epidermoid cyst of skin of chest Sleep apnea Home Medications ?Medication ?Instructions ?Recorded ?Last Taken ?Type rivaroxaban 20 mg tablet 20 mg PO DAILY 09/08/20 04/14/24 History multivitamin 1 tab PO DAILY 04/13/24 04/13/24 History Allergy/AdvReac Type Severity Reaction Status Date / Time No Known Allergies Allergy Verified 04/20/24 09:15 Family History Father Cancer Lung Surgical History Hx of colonoscopy History of incision and drainage Social History household members: spouse current occupational status: employed Smoking Status: Never smoker second hand exposure: No alcohol intake: never substance use type: does not use caffeine: Yes Past Medical/Surgical History Planned Operation Planned Operative Procedure(s): CSCOPE Previous Hospitalizations/Surgeries HX Hospitalizations: No Any Problems With Anesthesia: No You/Your Family Experience Fever (Hyperthermia) With Anes: No Cholinesterase deficiency: No Cardiovascular Hx of Irregular Heartbeat and/or Afib: No Hx Heart Attack: No Hx Congestive Heart Failure: No Hx Rheumatic Fever: No Hx Hypertension: No Hx Pacemaker: No Respiratory HX of Shortness of Breath: No Hx Chronic Obstructive Pulmonary Disease (COPD): No Hx Asthma: No Hx Emphysema: No Hx Sleep Apnea: Yes CPAP: No BIPAP: Yes Hx Respiratory Tract Infection/Cold (presently): No Do You Snore Loudly (louder than talking or can be heard): No Do You Often Feel Tired/ Fatigued/ Sleepy Dring Daytime?: No Has Anyone Observed You Stop Breathing During Sleep?: No Result (for STOP score): Positive Smoking Status: Never smoker Gastrointestinal Hx Ulcer: No Neurological Hx Multiple Sclerosis: No Hx Parkinson's Disease: No Hx Head/Neck Injury: No Hx Headaches: No Hx Back Injury/Pain: No Does patient have nerve stimulator: No Blood Disorder Hx Hepatitis: No Hx Anemia: No Reproduction : No Musculoskeletal Hx Arthritis: No Hx Gout: No Endocrine Hx Diabetes: No Thyroid Disease: No Psycho/Social Hx Anxiety: No Hx Depression: No Hx Dementia: No Miscellaneous Hx Cancer: No Recent Exposure to Contagious Disease: No Allergies No Known Allergies Allergy (Verified 04/20/24 09:15) Discharge Is Pt Admitted From a Usp, or a Shelter: No After D/C, Where Do you Plan to Go: Return Home Vital Signs Vital Signs Vital Signs: 04/20/24 09:16 04/20/24 09:16 04/20/24 09:42 Temperature 96.5 F L 96.5 F L Temperature Source Temporal Pulse Rate 76 76 Respiratory Rate 16 16 Respiratory Pattern Normal Blood Pressure 118/87 H 118/87 H Blood Pressure Mean 97 Blood Pressure Source Monitor Blood Pressure Position Sitting Blood Pressure Location Right Arm Pulse Ox 95 95 Oxygen Delivery Method Room Air Weight Weight: 267 lb 10.259 oz Body Mass Index (BMI) 35.3 Physical Exam Const alert, oriented x3 and no apparent distress General Appearance: cooperative and comfortable Resp normal respiratory effort GI GI Narrative: No scars, obese, soft, nondistended, nontender to palpation, roughly 1.5 cm umbilical hernia containing fat present but is asymptomatic Assessment & Plan Assessment/Plan (1) Encounter for screening for malignant neoplasm of colon: PLAN: Patient is a 63-year-old gentleman who presents for screening colonoscopy given that it has been greater than 10 years in his lab since his last colonoscopy. He denies any significant findings in his prior investigation. He also denies any complaints going into today's procedure. He confirms that he has completed a prep and that he has also held his anticoagulation appropriately. Therefore we will proceed the endoscopy suite for screening colonoscopy. He and his are both informed that he should continue to hold his anticoagulation for 48 hours post procedure if biopsies are performed during today's exam. Surgery Risks - Colonoscopy Risks Include but are not Limited To: Risks include but are not limited to: Bleeding, perforation requiring further surgery, inability to complete colonoscopy requiring barium enema.
--- NOTE | 2024-04-20 11:03 | PCM.POST.ANE ---
Anesthesia: Postop Eval I Current Vital Signs Temperature: 97.1 F Pulse Rate: 70 Blood Pressure: 106/61 Respiratory Rate: 16 Pulse Ox: 92 Oxygen Delivery Method: Room Air Assessment Airway patent: Yes Spontaneous unlabored respirations: Yes Mental status: Asleep nausea: No Vomiting: No Anesthesia Complication: No Fluid Hydration Crystalloid volume administer (ml): 800 Total IV fluid infused: 800 Progress Note Anesthesia document: Postop Eval 1 completed: Yes
--- NOTE | 2024-04-20 11:06 | OP.COLON_ITS ---
Patient Name: Colt Hart Procedure Date: 04/20/2024 10:20 AM Date of : 1960 Age: 63 Procedure: Colonoscopy Indications: Screening for colorectal malignant neoplasm Providers: Joaquin Farfan MD Referring MD: Joaquin Farfan MD Medicines: See the Anesthesia note for documentation of the administered medications Patient Profile: Last Colonoscopy: more than 10 years ago. Complications: No immediate complications. Estimated blood loss: None. Procedure: Pre-Anesthesia Assessment: - The heart rate, respiratory rate, oxygen saturations, blood pressure, adequacy of pulmonary ventilation, and response to care were monitored throughout the procedure. After I obtained informed consent, the scope was passed under direct vision. Throughout the procedure, the patient's blood pressure, pulse, and oxygen saturations were monitored continuously. The Colonoscope was introduced through the anus and advanced to the cecum, identified by appendiceal orifice and ileocecal valve. The colonoscopy was performed without difficulty. The patient tolerated the procedure well. The quality of the bowel preparation was good. Scope In: 10:30:37 AM Scope Withdrawal Time 0 hours 15 minutes 2 seconds Scope Out: 10:54:23 AM Total Procedure Duration Time 0 hours 23 minutes 46 seconds Findings: The perianal and digital rectal examinations were normal. The entire examined colon appeared normal on direct and retroflexion views. No biopsies or other specimens were collected for this exam. Impression: - The entire examined colon is normal on direct and retroflexion views. Recommendation: - Discharge patient to home (via wheelchair). - Resume previous diet today. - Resume Xarelto (rivaroxaban) at prior dose tomorrow. Refer to managing physician for further adjustment of therapy. - Repeat colonoscopy in 10 years for screening purposes. - Telephone my office for study results in 1 week. Procedure Code(s): --- Professional --- G0121, Colorectal cancer screening; colonoscopy on individual not meeting criteria for high risk Diagnosis Code(s): --- Professional --- Z12.11, Encounter for screening for malignant neoplasm of colon CPT copyright 2021 [employer]. All rights reserved. The codes documented in this report are preliminary and upon rug cleaning supervisor review may be revised to meet current compliance requirements. Joaquin Farfan MD 04/20/2024 11:05:31 AM This report has been signed electronically. Number of Addenda: 0 Note Initiated On: 04/20/2024 10:20 AM
--- NOTE | 2024-04-20 11:06 | OP.CCLET_ITS ---
04/20/2024 Vick Washington Md Re : Colonoscopy procedure for Colt Hernandes Padmini This procedure was performed on Saturday, April 20, 2024. My impressions and recommendations are as follows: Impressions : - The entire examined colon is normal on direct and retroflexion views. Recommendations : - Discharge patient to home (via wheelchair). - Resume previous diet today. - Resume Xarelto (rivaroxaban) at prior dose tomorrow. Refer to managing physician for further adjustment of therapy. - Repeat colonoscopy in 10 years for screening purposes. - Telephone my office for study results in 1 week. My findings are described in the full procedure note, which is enclosed. If I can be of further assistance, please feel free to contact me at Doctor phone number(s): , Work: . Sincerely, Joaquin Farfan MD 04/20/2024 11:05:31 AM This report has been signed electronically.
--- NOTE | 2024-04-20 11:10 | PCM.POSTANE2 ---
Anesthesia Postop Eval I Sum Postop Eval Completion status Anesthesia document: Postop Eval 1 completed: Yes Anesthesia Postop Eval I Summary Anesthesia Postop Eval I Summary: Anesthesia Postop Eval I: Assessment Summary Airway patent Yes 04/20/24 11:04 [email or web address] Spontaneous unlabored Yes 04/20/24 11:04 [email or web address] respirations Mental status Asleep 04/20/24 11:04 [email or web address] nausea No 04/20/24 11:04 [email or web address] Vomiting No 04/20/24 11:04 [email or web address] Anesthesia Postop Eval I: Fluid Summary Crystalloid volume administer 800 04/20/24 11:04 [email or web address] (ml) Colloids volume administered ( ml) Blood Product volume administered (ml) Total IV fluid infused 800 04/20/24 11:04 [email or web address] Anesthesia Postop Eval I: Summary Notes Anesthesia Complication No 04/20/24 11:04 [email or web address] Anesthesia Complication Comment: Post-operative progress note Anesthesia: Postop Eval II Evaluation Mental status: Awake Pain Level: 0 nausea: No Vomiting: No Complications Anesthesia Complication: No
== END 2024-04-20 11:35 | disposition home or self-care (01) ==
LOC: EN 08:47 → AC 08:48
PROVIDERS: PCP Family Medicine; Referring Provider Surgery; Visit Provider Surgery
PROC: 0DJD8ZZ Inspection of Lower Intestinal Tract, Via Natural or Artificial Opening Endoscopic (ICD-10-PCS; CPT 45378; principal; 2024-04-20 09:55)
DX: Z12.11 Encounter for screening for malignant neoplasm of colon (principal); G47.33 Obstructive sleep apnea (adult) (pediatric); Z79.01 Long term (current) use of anticoagulants; Z86.718 Personal history of other venous thrombosis and embolism; Z86.711 Personal history of pulmonary embolism
CPT/HCPCS: 45378; J7120; J2405

== ENCOUNTER → 2024-05-02 | Outpatient (CLI) | payer OTHER, SELFPAY ==
[2024-05-04 19:07] LABS: Factor VIII Activity 127 % (56-140); VWD Studies Interp Report Note (.); von Willebrand Factor (vWF) Ag 289 % (50-200); von Willebrand Factor Activity 199 % (50-200)
== END | disposition home or self-care (01) ==
LOC: LAB 11:29
PROVIDERS: PCP Family Medicine; Referring Provider Family Medicine; Visit Provider Family Medicine
DX: Z79.01 Long term (current) use of anticoagulants (principal)
CPT/HCPCS: 36415; 85240; 85245; 85246

== ENCOUNTER → 2024-05-22 | Outpatient (CLI) | payer OTHER, SELFPAY | END | disposition home or self-care (01) | LOC: LABSPEC 09:35 | PROVIDERS: PCP Family Medicine; Referring Provider Surgery; Visit Provider Surgery | DX: Z01.818 Encounter for other preprocedural examination (principal); K46.9 Unspecified abdominal hernia without obstruction or gangrene | CPT/HCPCS: 87081 ==

== ENCOUNTER 2024-06-11 09:53 | Day surgery (SDC) | payer OTHER, SELFPAY ==
[2024-06-11] VITALS (12 sets, daily range): BP systolic 105–125; BP diastolic 64–85; PULSE 61–80; RESP 14–18; TEMP 35.5–36.8; O2SAT 92–98; BMI 35.4
--- NOTE | 2024-06-11 10:23 | EKG12_ITS ---
Test Reason : preop Blood Pressure : / mmHG Vent. Rate : 064 BPM Atrial Rate : 064 BPM P-R Int : 206 ms QRS Dur : 084 ms QT Int : 400 ms P-R-T Axes : 061 065 022 degrees QTc Int : 412 ms Normal sinus rhythm Normal ECG No previous ECGs available Confirmed by Joaquin Brizuela ([id number]), editorial intern CRISPIN ROSE ([id number]) on 06/11/2024 1:33:15 PM Referred By: Joaquin Farfan Confirmed By:Joaquin Brizuela
[2024-06-11] MEDS: Lactated Ringers 1,000 ML 15 ML IV (10:53)
[2024-06-11 11:05] LABS: Hematocrit 42.3 % (40-54); Hemoglobin 14.1 g/dL (13.0-16.5); Mean Corp Hgb Conc 33.3 g/dL (32-36); Mean Corpuscular Hgb 30.7 pg (27.0-32.0); Mean Corpuscular Volume 92.2 fL (80-94); Mean Platelet Vol. 9.8 fl (6.2-12.0); Platelet Count 261 K/mm3 (150-450); RBC Distribution Width CV 12.7 % (11.6-14.6); RBC Distribution Width SD 42.8 fl (35.1-43.9); Red Blood Count 4.59 M/mm3 (4.6-6.2); White Blood Count 5.2 K/mm3 (4.4-11.0)
--- NOTE | 2024-06-11 11:05 | PCM.PRE.AN2 ---
ASA Classification* ASA Classification ASA Classification: 2 Assessment & Plan Anesthesia* Anesthesia Assessment Anesthesia Assessment: Discussed sedation and/or anesthesia options, risks, benefits, and alternatives with patient/parents/legal guardian/POA. Questions invited. The patient/parents/legal guardian/POA seems to understand and agrees to proceed with anesthesia plan. Reviewed the physical assessment, medical history, allergy history and patient home medications list prior to surgery/procedure/anesthetic and documented any changes. Performed airway and anesthesia risk assessments. Anesthesia Type Anesthesia Type: General (Will consider Otter scope intubation.) History Source History Obtained from:: Patient and Chart Anesthesia Focused Assessment* Temperature: 98.2 F Pulse Rate: 66 Blood Pressure: 124/79 Respiratory Rate: 16 Pulse Ox: 98 Oxygen Delivery Method: Room Air Airway Assessment Mouth opens: >3 cm Mallampati Score: IV Teeth Condition: Caps/Crowns (Patient has several crowns. They are all tight.) and Partial (Patient has a permanent upper bridge.) Neck Range of motion (ROM): Limited ROM Pertinent Findings EKG Pertinent Findings:: June 11, 2024. Normal sinus rhythm. Focused Labs Anesthesia Preop lab: CBC WBC 5.4 K/mm3 (4.4-11.0) 03/09/24 07:23 RBC 4.76 M/mm3 (4.6-6.2) 03/09/24 07:23 Hgb 14.3 g/dL (13.0-16.5) 03/09/24 07:23 Hct 43.9 % (40-54) 03/09/24 07:23 Plt Count 245 K/mm3 (150-450) 03/09/24 07:23 CHEMISTRY Potassium 4.1 mmol/L (3.5-5.1) 03/09/24 07:23 Sodium 138 mmol/L (136-145) 03/09/24 07:23 BUN 19 mg/dL (7-18) H 03/09/24 07:23 Creatinine 1.12 mg/dL (0.70-1.30) 03/09/24 07:23 Glucose 95 mg/dL (74-106) 03/09/24 07:23 TSH 1.97 uIU/mL (0.358-3.74) 03/09/24 07:23 COAG Pre-Assessment Diagnosis/Proposed Procedure Planned Operative Procedure(s): ROBOTIC UMBILICAL HERNIA REPAIR WITH MESH Anesthesia History Anesthesia History - respite care provider: Anesthesia History - respite care provider Hx Hospitalization No 06/01/24 13:17 Any Problems With Anesthesia No 06/01/24 13:17 Cholinesterase deficiency No 06/01/24 13:17 You/Your Family Experience No 06/01/24 13:17 fever (hyperthermia) with Relationship Recent Exposure to Contagious No 06/11/24 10:27 Disease Does patient have nerve No 06/01/24 13:17 stimulator Patient instructed to have device shut off --Does patient have Pacemaker No 06/11/24 10:27 or ICD? When Was Last Pacemaker Check QUESTION #4 FULL TEXT: You/Your Family Experience fever (hyperthermia) with Anesthesia Last Oral Intake Last Oral intake: Last Oral Intake NPO since 20:00 06/11/24 10:27 Meds taken in AM with sips of No 06/11/24 10:27 water? Meds patient instructed to take am of surgery PONV PONV - respite care provider: PONV - respite care provider Female No 06/01/24 13:17 HX of Motion Sickness No 06/01/24 13:17 HX of N/V After Surgery No 06/01/24 13:17 Non-Smoker Yes 06/01/24 13:17 Duration of Surgery greater Yes 06/01/24 13:17 than 60 minutes Number of Risk Factors 2 06/01/24 13:17 PONV Score Moderate Risk 06/01/24 13:17 Height & Weight Height & Weight: Anesthesia: Height & Weight Height 6 ft 1 in 06/11/24 10:27 Weight: 122 kg 06/11/24 10:27 Body Mass Index (BMI) 35.4 06/11/24 10:27 Respiratory Assessment Respiratory Assessment - respite care provider: Respiratory Tract Infection Hx - respite care provider Hx Respiratory Tract Infection No 06/01/24 13:17 STOP Sleep Apnea STOP Sleep Apnea - respite care provider: STOP Sleep Apnea - respite care provider Hx Hypertension No 06/01/24 13:17 Hx Sleep Apnea Yes 06/01/24 13:17 CPAP No 06/01/24 13:17 BIPAP Yes 06/01/24 13:17 Do you snore loudly (louder than talking or can be heard Do you often feel tired/ fatigued/ sleepy during daytime? Has anyone observed you stop breathing during sleep? STOP Results Positive 06/01/24 13:17 QUESTION #5 FULL TEXT : Do you snore loudly (louder than talking or can be heard through closed doors)? 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 Specify any problems Hx of Preganancy in last 3 N/A 06/01/24 13:17 Months Nurse Filling Out Transfusion DSCHRIBER 06/01/24 13:17 & Questions: Date: 06/01/24 06/01/24 13:17 Time: 13:19 06/01/24 13:17 Patient unable to answer at this time (ie. confused, unrespo /Reproduction History /Reproductive History - respite care provider: /Reproductive Hx- respite care provider Hx Now Gestational Age (in weeks): EDC: Hx Hx Para Hx Section SAB No 06/01/24 13:17 Active Medications Active Medications: Current Medications Generic Name Dose Route Start Last Admin Trade Name Freq PRN Reason Stop Dose Admin Cefazolin Sodium 3 gm/ Sodium 115 mls @ 150 mls/hr 06/11/24 11:35 Chloride IV 06/11/24 12:20 PREOP ONE Lactated Ringer's 1,000 mls @ 15 mls/hr 06/11/24 10:15 06/11/24 10:53 IV 15 mls/hr .Q48H AAKASH Administration PFSH Medical History Hernia Wears glasses Pulmonary embolism DVT (deep venous thrombosis) Non-smoker History of edema BiPAP (biphasic positive airway pressure) dependence History of stress test History of echocardiogram Cardiology follow-up encounter Dyspnea on exertion MARISOL (obstructive sleep apnea) Premature ventricular contraction Pulmonary embolism and infarction Hx of blood clots Cyst Epidermoid cyst of skin of chest Sleep apnea Home Medications ?Medication ?Instructions ?Recorded ?Last Taken ?Type rivaroxaban 20 mg tablet 20 mg PO DAILY 09/08/20 04/14/24 History multivitamin 1 tab PO DAILY 04/13/24 04/13/24 History Allergy/AdvReac Type Severity Reaction Status Date / Time No Known Allergies Allergy Verified 06/11/24 10:25 Family History Father Cancer Lung Surgical History Hx of colonoscopy Hx of colonoscopy History of incision and drainage Social History household members: spouse current occupational status: employed Smoking Status: Never smoker second hand exposure: No alcohol intake: never substance use type: does not use caffeine: Yes Review of Systems (Anesthesia) ROS Narrative System reviewed and no additional complaints, except as documented.
--- NOTE | 2024-06-11 11:12 | HP.PCM_ITS ---
History and Physical Date of Admission: 06/11/24 Date of Service: 05/22/24 MR#: [id number] Acct: [id number] Name: BERNARD CABELLO Rep #: [id number] : 1960 Provider: Dr. Joaquin Farfan MD Age/Sex: 63/M Location: [facility] Status: Signed Intake Vital Signs 04/20/2409:16 05/22/2408:05 Height 6 ft 1 in 6 ft 1 in Weight: 281 lb 4 oz BMI 37.0 BP 125/84 H Blood Pressure Location Rt brachial Position Sitting Respiration 18 Pulse 63 Pulse Source Monitor Temp 97.4 F L Temp Source Temporal Pulse Oximetry (%) 98 Oxygen Delivery Method room air Intake Visit Reasons: Hernia Chief Complaint: hernia Is patient in pain?: No Allergies No Known Allergies Allergy (Verified 05/22/24 08:06) Medications ?Medication ?Instructions ?Recorded ?Confirmed ?Type rivaroxaban 20 mg tablet 20 mg PO DAILY 09/08/20 05/22/24 History multivitamin 1 tab PO DAILY 04/13/24 05/22/24 History PFSH Medical History (Updated 05/22/24 @ 17:[address] Joaquin Farfan MD) Hernia Wears glasses Pulmonary embolism DVT (deep venous thrombosis) Non-smoker History of edema BiPAP (biphasic positive airway pressure) dependence Sleep apnea History of stress test History of echocardiogram Cardiology follow-up encounter MARISOL treated with BiPAP Dyspnea on exertion MARISOL (obstructive sleep apnea) Premature ventricular contraction Pulmonary embolism and infarction Hx of blood clots Cyst Epidermoid cyst of skin of chest Sleep apnea Surgical History Hx of colonoscopy History of incision and drainage Family History Father Cancer Lung Social History household members: spouse current occupational status: employed Smoking Status: Never smoker second hand exposure: No alcohol intake: never substance use type: does not use caffeine: Yes HPI HPI HPI: Patient is a 63-year-old male who presents for evaluation of an umbilical hernia. He is known to me from a colonoscopy completed early last month as part of our open access program. I noted his hernia incidentally during evaluation for this colonoscopy and recommended further evaluation. 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 He shares that there has been no real pain from his hernia but expresses increased awareness of its existence and potentially more discomfort because of an awareness. He denies any new health updates. He does share that he is actively trying to lose weight and has taken up intermittent fasting as well as continued exercising by riding mountain bikes. Patient denies any history of staph infections. Mr. Cabello denies any prior abdominal surgical history. ROS General General: Yes weight change and fatigue; No appetite, colon cancer, breast cancer or weakness HEENT HEENT: No difficulty swallowing, eye injury, eye surgery, swollen glands or hoarseness Endo Endocrine: No thyroid disease, diabetes mellitus, thyroid cancer, Hair loss, heat intolerance or cold intolerance Skin Skin: No rash or changing moles Cardio Cardiovascular: No murmur, pacemaker, heart disease, atrial fibrillation, high blood pressure, heart attack, heart stent, palpitations, shortness of breat with exertion or chest pain Psych Psychiatric: No depression, anxiety or hearing voices Resp Respiratory: No shortness of breath, Yes sleep apnea, No cough, No COPD, No asthma, No emphysema and No wheezing Gastro Gastrointestinal: Yes abdominal pain, No nausea or vomiting, No diarrhea, No constipation, No blood in stool, No acid reflux, No hemorrhoids, No ulcers, No gallbladder problem and No black,tarry stools Alex Hematologic: Yes blood thinners, No blood disorders, No bleeding, No anemia and Yes blood clots Additional Details: xarelto Neuro Neurologic: No numbness, No tingling and No weakness Exam Const General: cooperative, comfortable and no acute distress Orientation: alert, awake and oriented x3 Resp Effort & Inspection: normal respiratory effort GI Other: Obese, well-healed scar just to the right and superior to the umbilicus, visible umbilical herniation is soft but tender to palpation. Hernia defect is estimated at just under 2 cm. It is reducible. Remainder of abdomen is soft and nontender Assessment and Plan Assessment and Plan (1) Hernia: (2) Umbilical hernia without obstruction and without gangrene: Status: Acute Comment: Patient is a 63-year-old male who returns for consultation related to umbilical hernia that was found during workup prior to screening colonoscopy. Patient does declare some discomfort associated with the hernia and it is approaching a size (approximately 2 cm in diameter) and I would begin to be concerned about the potential for incorporation of bowel. Thus I have recommended elective repair. Is patient's wish to be underway with this repair sooner than later?especially upon hearing my request for a lifting restriction of no weight greater than 10 pounds for 5 weeks postoperatively. 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 An overview of the procedure options was given and patient wishes to pursue minimally invasive repair with mesh placement as he is still very active in life. Plan: ? Robot-assisted umbilical hernia repair with mesh; patient will require 48-hour hold of Xarelto in anticipation of procedure?will seek clearance with PCP ? Follow-up MRSA swab of the nares to determine if patient requires preoperative treatment for staph colonization I have examined the patient and the H&P has been reviewed. There are no clinical changes since date of exam. Procedure and post procedure expectations were reviewed?including postprocedure activity restrictions. Patient and his expressed understanding. Will now proceed to the operating room for planned umbilical hernia repair with mesh placement.
[2024-06-11] MEDS: Cefazolin 3 GM in 0.9% Normal Saline (100mL Bag) 100 ML IV (11:30)
[2024-06-11] MEDS: BUPIVACAINE LIPOSOME/PF 20 ML VIAL OPERA.SITE (11:58)
[2024-06-11] MEDS: 0.9% Normal Saline (Pres. free 10 ML Vial (11:58)
[2024-06-11] MEDS: Bupivacaine 0.25% 30 ML Vial (11:58)
--- NOTE | 2024-06-11 14:13 | EX.PCM.DISCH ---
Discharge Instructions Diet Discharge Diet: No restrictions Activity Discharge Activity: May Not Drive (While taking narcotic pain medication) and May Shower May shower in (days): 2 Ice area for (Minutes): 20 Lifting Restrictions: No lifting greater than 10 pounds for the next 5 weeks Dressing / Incision Call your doctor if your incision/area has: Continuous Slow Oozing, Increased Pain/ Swelling, Increased Redness, Foul Smelling Discharge and Swelling at the incision site Call your doctor if you observe: Fever of 101 or Higher, Inability to urinate and Inability to have a bowel movement Change Dressing in: 2 days (Please leave Steri-Strips intact until they fall off spontaneously or are taken off at your follow-up visit) Remove Dressing in: 2 days Cleanse incision/area with: Soap & Water and Keep Dressing Clean & Dry Follow Up Care Please Follow Up With: Joaquin Farfan MD When: 10-14 Days postop Test Results: Test results from this visit will be discussed in further detail at your follow-up appointment, if applicable. Discharge Plan Admission Primary Reason for Your Visit: Umbilical hernia repair Attending Provider: Joaquin Farfan Primary Care Provider: Vick Washington Instructions Additional Instructions / Restrictions: Please resume anticoagulation 48 hours postop Print Language: Pashto Discharge Orders/Prescriptions Prescriptions: New oxycodone 5 mg tablet 5 mg PO Q6H PRN (Reason: pain) 3 Days Qty: 14 0RF Continued rivaroxaban 20 mg tablet 20 mg PO DAILY multivitamin Tablet 1 tab PO DAILY Referrals / Follow Up: Vick Washington MD [Primary Care Provider] - Disposition Disposition (needs filled in before D/C Order can be placed): Home, Self Care
--- NOTE | 2024-06-11 14:19 | PCM.OPRPT ---
Report of Operation Date of Procedure: 06/11/24 Pre-Operative Diagnosis: Umbilical hernia Post-Operative Diagnosis: Fat incarcerated umbilical hernia Surgery/Procedure Performed:: Robot-assisted transabdominal preperitoneal repair of umbilical hernia with mesh Description of Surgical Findings:: ? 1.5 cm fascial defect with apparent herniation of fat above the fascial Surgeon: Joaquin Farfan aerospace project engineer: Evans Aldrich Type of Anesthesia: General/Supplemental Anesthesiologist: Mati Newton Estimated Blood Loss (mL): 10 Description of Procedure: After appropriate identification in the preoperative holding area, the patient was brought to the operating room suite where he was positioned supine the operating table. Preoperative antibiotics were administered. Patient was then induced with a general anesthetic. Patient's abdomen was prepped and draped in the usual sterile fashion. A formal timeout followed to confirm patient and procedure. Procedure was begun with a Veress entry at Pascal's point. Once the set point pressure was reached, this Veress needle was exchanged for an optical trocar and an optical entry was made in this location. Laparoscopic investigation revealed no inadvertent injury to the viscera below. 2 additional 8 mm robotic trocars were placed along the abdominal wall laterally taking care to avoid the bony prominences of the costal margin and the ASIS. A transversus abdominis plane block was created with 40 mL of Exparel, Marcaine, and injectable saline under laparoscopic vision as these ports were placed. The robot was then brought in and docked in standard fashion. Robotically a peritoneal flap was raised approximately 4 cm medial from my trocars and this dissection was carried away towards the contralateral abdominal wall. Great care was taken to lower the peritoneum off of the posterior rectus sheath and avoid any rents in the peritoneal flap. Yet despite this care a tear was made in the superior aspect of the flap on the operating side and I had to work to regain the proper plane against the posterior rectus sheath. This was accomplished and there was just a small additional inadvertent rent in the flap inferior to where the hernia defect had occurred at the conclusion of the dissection. Perforating vessels were sealed with bipolar energy to maintain hemostasis as this flap dissection proceeded. I addressed the hernia directly by opening the scar tissue about the hernia sac and carefully applying manual traction downward until the hernia was fully reduced. A ruler was introduced into the peritoneal cavity to measure for appropriate width of dissection. The flap was then further dissected laterally until it appeared we had adequate width. The hernia defect was closed with a #1 stratafix suture by running the fascial defect closed and then running the suture back upon itself. Next a 8 x [address] mesh was introduced into the peritoneum and a 3-0 V-Loc suture was used to chandelier the mesh. This V-Loc suture was then run towards the operating side of the opening and the needle was then removed. A 3-0 Vicryl suture was then used to loosely tacked the mesh in the cephalad direction as well as reinforce the proximal side of the mesh against the abdominal wall. Lastly the peritoneum was closed with 2x3-0 V-Loc sutures in a running fashion. The robot was then undocked and the trocars were removed. Additional local anesthetic was instilled and the port sites were closed with interrupted 4-0 Monocryl in subcuticular fashion. Steri-Strips and OpSite dressings were applied. Patient was transferred to PACU for ongoing care. Grafts/Implants Used: Ventralex ST hernia patch, reference [id number], Lot [id number] Complications None Admit VTE Documentation VTE Mechan Device Prophylaxis: SCD's Procedures Digestive 40xxx-49xxx: 86409 RPR AA HRN 1ST < 3 CM RDC
--- NOTE | 2024-06-11 14:32 | PCM.POST.ANE ---
Anesthesia: Postop Eval I Current Vital Signs Temperature: 97.2 F Pulse Rate: 74 Blood Pressure: 123/73 Respiratory Rate: 18 Pulse Ox: 94 Oxygen Delivery Method: Simple Mask Oxygen Flow Rate (L/min): 6 Assessment Airway patent: Yes Spontaneous unlabored respirations: Yes Mental status: Asleep nausea: No Vomiting: No Anesthesia Complication: No Fluid Hydration Crystalloid volume administer (ml): 1,500 Total IV fluid infused: 1,500 Progress Note Anesthesia document: Postop Eval 1 completed: Yes
--- NOTE | 2024-06-11 16:08 | POSTOPAN2_ITS ---
Anesthesia Postop Eval I Sum Postop Eval Completion status Anesthesia document: Postop Eval 1 completed: Yes Anesthesia Postop Eval I Summary Anesthesia Postop Eval I Summary: Anesthesia Postop Eval I: Assessment Summary Airway patent Yes 06/11/24 14:32 ADJUNCT ART HISTORY INSTRUCTOR.[email or web address] Spontaneous unlabored Yes 06/11/24 14:32 ADJUNCT ART HISTORY INSTRUCTOR.ARTURO respirations Mental status Asleep 06/11/24 14:32 ADJUNCT ART HISTORY INSTRUCTOR.SKOBY nausea No 06/11/24 14:32 ADJUNCT ART HISTORY INSTRUCTOR.CHRISTIANOOBY Vomiting No 06/11/24 14:32 ADJUNCT ART HISTORY INSTRUCTOR.CHRISTIANOOBCandace Anesthesia Postop Eval I: Fluid Summary Crystalloid volume administer 1,500 06/11/24 14:32 ADJUNCT ART HISTORY INSTRUCTOR.SKOBY (ml) Colloids volume administered ( ml) Blood Product volume administered (ml) Total IV fluid infused 1,500 06/11/24 14:32 ADJUNCT ART HISTORY INSTRUCTOR.CHRISTIANOOBCandace Anesthesia Postop Eval I: Summary Notes Anesthesia Complication No 06/11/24 14:32 ADJUNCT ART HISTORY INSTRUCTOR.ARTURO Anesthesia Complication Comment: Post-operative progress note Anesthesia: Postop Eval II Evaluation Mental status: Awake and Calm Pain Level: 1 nausea: No Vomiting: No Complications Anesthesia Complication: No
--- NOTE | 2024-06-11 16:08 | PCM.POSTANE2 ---
Anesthesia Postop Eval I Sum Postop Eval Completion status Anesthesia document: Postop Eval 1 completed: Yes Anesthesia Postop Eval I Summary Anesthesia Postop Eval I Summary: Anesthesia Postop Eval I: Assessment Summary Airway patent Yes 06/11/24 14:32 SMART ENERGY SPECIALIST.[email or web address] Spontaneous unlabored Yes 06/11/24 14:32 SMART ENERGY SPECIALIST.ARTURO respirations Mental status Asleep 06/11/24 14:32 SMART ENERGY SPECIALIST.SKOBY nausea No 06/11/24 14:32 SMART ENERGY SPECIALIST.CHRISTIANOOBY Vomiting No 06/11/24 14:32 SMART ENERGY SPECIALIST.CHRISTIANOOBCandace Anesthesia Postop Eval I: Fluid Summary Crystalloid volume administer 1,500 06/11/24 14:32 SMART ENERGY SPECIALIST.SKOBY (ml) Colloids volume administered ( ml) Blood Product volume administered (ml) Total IV fluid infused 1,500 06/11/24 14:32 SMART ENERGY SPECIALIST.CHRISTIANOOBCandace Anesthesia Postop Eval I: Summary Notes Anesthesia Complication No 06/11/24 14:32 SMART ENERGY SPECIALIST.ARTURO Anesthesia Complication Comment: Post-operative progress note Anesthesia: Postop Eval II Evaluation Mental status: Awake and Calm Pain Level: 1 nausea: No Vomiting: No Complications Anesthesia Complication: No
== END 2024-06-11 19:20 | disposition home or self-care (01) ==
LOC: SDC 09:55 → AC 09:56
PROVIDERS: Anesthesiology; PCP Family Medicine; Referring Provider Surgery; Visit Provider Surgery
PROC: (CPT 49592; principal; 2024-06-11 11:10)
DX: K42.0 Umbilical hernia with obstruction, without gangrene (principal); Z79.01 Long term (current) use of anticoagulants
CPT/HCPCS: 49592; S2900; 00840; 85027; 93005; J7120; C1781; J2405; J3490

== ENCOUNTER → 2024-07-20 | Outpatient (CLI) | payer MEDICARE, BC, SELFPAY ==
--- NOTE | 2024-07-20 14:34 | RAD_ITS ---
INDICATION: riGHT KNEE injury EXAMINATION/TECHNIQUE: X-RAY - RIGHT XR Knee Complete 4 Views or More 4 VIEWS COMPARISON: No relevant prior comparison study available FINDINGS: BONES: No fracture demonstrated. Mild joint space narrowing and osteophytes most pronounced at the patellofemoral compartment. JOINTS: No dislocation. SOFT TISSUES: Soft tissue swelling anteriorly prepatellar/infrapatellar. RAD/Knee 4 or More Views IMPRESSION: Soft tissue swelling. No evidence of fracture. Electronically Signed: Bernice Henry MD at 1:20 EDT ,
== END | disposition home or self-care (01) ==
LOC: MTRAD 14:34
PROVIDERS: PCP Family Medicine; Referring Provider Family Medicine; Visit Provider Family Medicine
DX: M25.561 Pain in right knee (principal)
CPT/HCPCS: 73564

== ENCOUNTER → 2024-08-07 | Outpatient (CLI) | payer MEDICARE, BC, SELFPAY | END | disposition home or self-care (01) | LOC: SL 08:35 | PROVIDERS: PCP Family Medicine; Visit Provider Nurse Practitioner Acute Care | DX: G47.33 Obstructive sleep apnea (adult) (pediatric) (principal) | CPT/HCPCS: 98960; G0463 ==

== ENCOUNTER → 2024-09-28 | Outpatient (CLI) | payer MEDICARE, BC, SELFPAY ==
[2024-09-28 08:04] LABS: Erythrocyte Sedimentation Rate 12 mm/hr (0-20)
[2024-10-01 13:07] LABS: ANTINUCLEAR ANTIBODIES DIRECT Negative (Negative)
[2024-10-08 09:07] LABS: Anti-Cardiolipin Ab, IgA, Qn < 9 APL U/mL (0-11); Anti-Cardiolipin Ab, IgG, Qn < 9 GPL U/mL (0-14); Anti-Cardiolipin Ab, IgM, Qn < 9 MPL U/mL (0-12); Anti-Thrombin 3 AG, Immunol 104 % (72-124); Antithrombin 3 Function 112 % (75-135); Beta-2-Glycoprotein I IgA <9 (0-25); Beta-2-Glycoprotein I IgG <9 (0-20); Beta-2-Glycoprotein I IgM <9 (0-32); Complement C3 142 mg/dL (82-167); Complement CH50 49 U/mL (>41); Dilute Prothrombin Time (dPT) 34.9 sec (0.0-47.6); Dilute Russell Viper Venom 36.4 sec (0.0-47.0); Factor VIII Activity 126 % (56-140); Interpretation Comment: (.); PTT-LA 36.9 sec (0.0-43.5); Protein C, Functional 139 % (73-180); Protein S, Free 102 % (61-136); Protein S, Funtional 91 % (63-140); Protein S, Total 102 % (60-150); Thrombin Time 20.1 sec (0.0-23.0); dPT Confirm Ratio 1.06 Ratio (0.00-1.34)
== END | disposition home or self-care (01) ==
LOC: LAB 06:08
PROVIDERS: PCP Family Medicine; Referring Provider Physician Assistant; Visit Provider Physician Assistant
DX: I26.99 Other pulmonary embolism without acute cor pulmonale (principal); I82.409 Acute embolism and thrombosis of unspecified deep veins of unspecified lower extremity

== ENCOUNTER → 2025-03-30 | Outpatient (CLI) | payer MEDICARE, BC, SELFPAY ==
--- OUTSIDE RECORDS SUMMARY | 2025-03-30 07:11 | XMS RPT_ITS | CCD ---
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 Oxygen Delivery Method room air Intake Visit Reasons: RIGHT KNEE Accompanied by: Self Is patient in pain?: Yes Pain scale (1-10): 1 Allergies No Known Allergies Allergy (Verified 08/20/24 08:04) Medications ???Medication ???Instructions ???Recorded ???Confirmed ???Type rivaroxaban 20 mg tablet 20 mg PO DAILY 09/08/20 08/20/24 History multivitamin 1 tab PO DAILY 04/13/24 08/20/24 History Have you fallen in the past year?: No PFSH Medical History Umbilical hernia without obstruction and without gangrene Hernia Wears glasses Pulmonary embolism DVT (deep venous thrombosis) Non-smoker History of edema BiPAP (biphasic positive airway pressure) dependence History of stress test History of echocardiogram Cardiology follow-up encounter Dyspnea on exertion MARISOL (obstructive sleep apnea) Premature ventricular contraction Pulmonary embolism and infarction Hx of blood clots Cyst Epidermoid cyst of skin of chest Sleep apnea Surgical History History of umbilical hernia repair Hx of colonoscopy Hx of colonoscopy History of incision and drainage Family History Father Cancer Lung Social History household members: spouse current occupational status: employed Smoking Status: Never smoker second hand exposure: No alcohol intake: never substance use type: does not use caffeine: Yes HPI RIGHT KNEE Details: This documentation accurately reflects the service provided and the decisions made by me, Dr. Neto Dias, DO 08/20/24 0754. Part of today???s visit was documented by [ ], acting as scribe. COLT HART is a 64 year old M here today for right knee pain. Patient notes that his pain started in March. He picked up a toilet from a store and drove home, by the time he got home his knee was swollen. He denies any known injury. He notes that he had soreness but no pain. Patient states then in May he was kneeling and he felt a bee stung him on top his patella. He hasnt kneeled since due to any pressure caused him a stinging pain. He notes this past weekend he noticed the stinging went away and the tingling he had in the area has improved. He has soreness over his knee at this time. Patient denies any popping or clicking. Patient denies any prior surgeries. He denies any instability. He had an xray by his PCP. He denies any MRI. Patient denies any physical therapy, bracing or injections. Patient denies any pain medications. Ortho Exam General General: Yes no acute distress Neurologic: Yes alert and Yes oriented x3 Psychologic: Yes reasonable and appropriate Right Knee Skin/Wound: Yes CDI, No erythema, No ecchymosis and No swelling Homans Sign: No Knee ROM: Yes ROM-Extension -20 to 0 (0) and No ROM-Flexion 0-140 (120) Examination: No Med jt line tenderness, No Lat jt line tenderness, Yes TTP inf pole patella, Yes Crepitus, No Pain with flexion, No Pain with extention, No Luz Marina's Test, No TTP Patellar tendon, No TTP Tibial tubercle, No TTP Pes Anserine and No Illiotibial band tenderness Stability: NML: Anterior Drawer, NML: Posterior Drawer, NML: Valgus 0, NML: Valgus 30, NML: Varus 0 and NML: Varus 30 Patella Translation: 1 Apprehension with Lateral Translation: No Patella Grind: Yes KNEE: thickened skin over knees. mild ttp over prepatellar bursa but no swelling or fluid accumulation, dry skin. Left Knee Patella Translation: 1 Supplemental Info 07/20/2024 x-ray right knee: Faint spurring noted medial and lateral tibial plateau preserved joint space mild to moderate patellofemoral spurring Coding Level of Care Code Off vis,new,level 3 Diagnoses Osteoarthritis of right patellofemoral joint M17.11 Patellar bursitis of right knee M70.51 Assessment and Plan Assessment and Plan (1) Osteoarthritis of right patellofemoral joint: (2) Patellar bursitis of right knee: Plan Spoke with the pa (more content not included)... [facility] Pulmonary Visit Reporton Pulmonary Visit Report [facility] [address] [place] [address] OFFICE VISIT Date of Service: 08/03/24 MR#: [id number] Acct: [id number] Name: COLT HART Rep #: [id number] : 1960 Provider: LEVI Bruno Age/Sex: 63/M Location: [facility].PMW Status: Signed Assessment and Plan Assessment and Plan (1) MARISOL (obstructive sleep apnea): Status: Acute Plan: Deteriorated. Despite excellent compliance with current PAP machine, the patient is not always feeling rested. He does not like the full facemask. He prefers a nasal interface. He is concerned that the full facemask is not the correct size. I don't think he needs a re-titration study, but he would benefit from a PapEd class. He often gets a red face indicating an air leak but he is not feeling an air leak. Return to the office in 4 months to review compliance report after making adjustments recommended at PapEd. (2) Paroxysmal ventricular tachycardia: Status: Acute Plan: Complicates exam, plan, care and prognosis. (3) BMI 36.0-36.9,adult: Status: Acute Plan: We discussed the relationship between obesity and MARISOL. Encourage weight loss. Orders: Orders Self Mgmnt Educ Training 08/07/24 G47.33 - Obstructive sleep apnea (adult) (pediatric) Plan Details Follow Up: 4 Months ([facility]) HPI Pap issues Chief Complaint: mask fit HPI Comments Details: This patient presents to the office today for concerns about the management of his obstructive sleep apnea. He is ambulatory and currently on room air. He has not recently been seen in the ED or urgent care for any respiratory illness. Any antibiotics or prednisone for this. He has shortness of breath when walking up hills or steps. He denies any coughing, sputum production or hemoptysis. He does not have any wheezing, chest tightness, chest pain or palpitations. He also denies any fever, chills or body aches. The patient reports that he was having more problems a few months ago, but notices that recently the machine seems to be working properly. A few months ago he felt as though the machine was not blowing enough air. He is using it nightly and feeling more rested. He does report frequently seeing a red face indicating improper mask fit. He is currently using a fullface mask but would be interested in using a nasal interface. He is not having excessive nocturia. He is not requiring naps and is not nodding off to sleep unintentionally. Compliance report for the past 30 days shows 100% compliance with an average use of approximately 6 hours and 51 minutes per night. Current setting is BiPAP 17/11 cm of water. Residual AHI of 0.6 events per hour. Leaks do not appear to be an issue. Intake Vital Signs 04/20/24 09:16 06/11/24 10:27 08/02/24 08:48 08/03/24 07:21 Height 6 ft 1 in 6 ft 1 in 6 ft 1 in 6 ft 1 in Weight: 280 lb BMI 36.9 BP 112/75 Blood Pressure Location Rt brachial Position Sitting Respiration 20 H Pulse 81 Pulse Source Monitor Temp 98.2 F Temperature Source Temporal Artery Pulse Oximetry (%) 95 Oxygen Delivery Method room air Intake Visit Reasons: Pap issues Stacking Machine Operator Required: No DME Vendor: [employer]? Accompanied by: Self Is patient in pain?: No Allergies No Known Allergies Allergy (Verified 08/03/24 08:06) Medications ???Medication ???Instructions ???Recorded ???Confirmed ???Type rivaroxaban 20 mg tablet 20 mg PO DAILY 09/08/20 08/03/24 History multivitamin 1 tab PO DAILY 04/13/24 08/03/24 History Have you fallen in the past year?: No PFSH Medical History Umbilical hernia without obstruction and without gangrene Hernia Wears glasses Pulmonary embolism DVT (deep venous thrombosis) Non-smoker History of edema BiPAP (biphasic positive airway pressure) dependence History of stress test History of echocardiogram Cardiology follow-up encounter Dyspnea on exertion MARISOL (obstructive sleep apnea) Premature ventricular contraction Pulmonary embolism and infarction Hx of blood clots Cyst Epidermoid cyst of skin of chest Sleep apnea Surgical History History of umbilical hernia repair Hx of colonoscopy Hx of colonoscopy History of incision and drainage Family History Father Cancer Lung Social History household members: spouse current occupational status: employed Smoking Status: Never smoker second hand exposure: No alcohol intake: never substance use type: does not use caffeine: Yes Review of Systems Resp Respiratory: Yes as pe (more content not included)... [facility] Knee 4 or More Viewson 07-20 Knee 4 or More Views [facility] Services [address] [place], [place] [address] Knee 4 or More Views MR#: [id number] Acct: [id number] Name: COLT HART Rep #: [id number] : 1960 M 63 From: Bernice Guerrero PCP: Dr. Vick Washington MD Status: REG CLI Study: Knee 4 or More Views Date of Exam: 07/20/24 Exam# [id number] Ordering Dr: Vick Washington MD :[id number] INDICATION: riGHT KNEE injury EXAMINATION/TECHNIQUE: X-RAY - RIGHT XR Knee Complete 4 Views or More 4 VIEWS COMPARISON: No relevant prior comparison study available FINDINGS: BONES: No fracture demonstrated. Mild joint space narrowing and osteophytes most pronounced at the patellofemoral compartment. JOINTS: No dislocation. SOFT TISSUES: Soft tissue swelling anteriorly prepatellar/infrapatellar. RAD/Knee 4 or More Views IMPRESSION: Soft tissue swelling. No evidence of fracture. Electronically Signed: Bernice Henry MD at 1:20 EDT Reading Location ID and State: [facility] / [place] Tel , Service support , CC: Dr. Vick Washington MD Lamp Replacer: Signed [facility] Surgery Visit Reporton 07-16 Surgery Visit Report [facility] [address] [place] [address] OFFICE VISIT Date of Service: 07/16/24 MR#: [id number] Acct: [id number] Name: COLT HART Rep #: [id number] : 1960 Provider: Dr. Joaquin honeycutt MD Age/Sex: 63/M Location: [facility] Status: Signed Intake Vital Signs 06/11/24 10:27 Height 6 ft 1 in Intake Visit Reasons: 5 WK F/U Chief Complaint: 5 wk f/u Is patient in pain?: No Allergies No Known Allergies Allergy (Verified 07/16/24 08:06) Medications ???Medication ???Instructions ???Recorded ???Confirmed ???Type rivaroxaban 20 mg tablet 20 mg PO DAILY 09/08/20 06/21/24 History multivitamin 1 tab PO DAILY 04/13/24 06/21/24 History Subjective Details: Patient presents following robot-assisted transabdominal preperitoneal umbilical hernia repair with mesh on 06/11/2024. Last visit 06/21/2024. When asked to give a general overview of how things have been going patient replies good, I think. He notes that he is a little sore and relates I know something was done. He denies any discomfort at rest. He wishes to know how long it will be until his mesh is fully incorporated as he has a strong interest in trying to minimize his risk for recurrence. He does share that he picked up his youngest grandson who is 2 years old and approximately 30 pounds of weight. He denies any discomfort with picking them up. He denies any wound concerns and is well pleased with his healing. Below is recapitulated from patient's prior visit for ease of reviewed: Patient presents following robot-assisted transabdominal preperitoneal umbilical hernia repair with mesh on 06/11/2024. Since hospital discharge they have been doing well. They report minimal postoperative pain. In fact they state each morning they are aware of an incremental improvement over the day prior. They have no wound concerns. They confirm that they are abiding by lifting restrictions, but also reports that they have gone back to work. They state that they are constantly reminded by their coworkers to refrain from any exertional activity. Positively, Mr. Hart also shares that he is not experiencing cramping in his sides as he experienced before his operation. Objective Details: Constitutional: Appreciative, cooperative Abdomen: Mild thickening of the umbilical skin with some very mild inflammation, no surrounding erythema. Lateral port sites are well-healed. Abdomen is nondistended. There is no tenderness with palpation. Coding Level of Care Code Global Post Op Diagnoses Status post umbilical hernia repair, follow-up exam Z09 [facility] Medical History (Updated 06/21/24 @ 08:06 by Gail Negro) Umbilical hernia without obstruction and without gangrene Hernia Wears glasses Pulmonary embolism DVT (deep venous thrombosis) Non-smoker History of edema BiPAP (biphasic positive airway pressure) dependence History of stress test History of echocardiogram Cardiology follow-up encounter Dyspnea on exertion MARISOL (obstructive sleep apnea) Premature ventricular contraction Pulmonary embolism and infarction Hx of blood clots Cyst Epidermoid cyst of skin of chest Sleep apnea Surgical History (Updated 07/16/24 @ 08:[address] Joaquin Farfan MD) History of umbilical hernia repair Hx of colonoscopy Hx of colonoscopy History of incision and drainage Family History Father Cancer Lung Social History household members: spouse current occupational status: employed Smoking Status: Never smoker second hand exposure: No alcohol intake: never substance use type: does not use caffeine: Yes Assessment and Plan (No Qualifiers) Assessment and Plan (1) Status post umbilical hernia repair, follow-up exam: Status: Acute Comment: Patient is a 63-year-old male making his second postoperative visit following robot-assisted umbilical hernia repair with mesh placement. He has recovered well and abiding by his lifting restrictions. I have given him instructions on returning to activity and urged him to do so in a gradual fashion. I suggested he begin with incremental increases of 10 pounds per week so long as there is no feeling of stretching at his repair site. I also answered his question about incorporation stating that it would be variable depending on his healing rate but that we expect remodeling all the way through 6 months postoperatively. Plan: ???No formal clinic follow-up is required, but patient is invited to call or arrange further follow-up with the occasion arises in the future 07/16/24821 Date Joaquin Farfan MD Cosigner Signature: Date __ (more content not included)... [facility] Surgery Visit Reporton 06-21 Surgery Visit Report [facility] [address] [place] [address] OFFICE VISIT Date of Service: 06/21/24 MR#: [id number] Acct: [id number] Name: COLT HART Rep #: [id number] : 1960 Provider: Dr. Joaquin honeycutt MD Age/Sex: 63/M Location: [facility] Status: Signed Intake Vital Signs 06/11/24 10:27 Height 6 ft 1 in Intake Visit Reasons: HERNIA 06-11 Chief Complaint: F/U Umbilical hernia repair 06/11/24 Stacking Machine Operator Required: No Is patient in pain?: No Allergies No Known Allergies Allergy (Verified 06/21/24 08:06) Medications ???Medication ???Instructions ???Recorded ???Confirmed ???Type rivaroxaban 20 mg tablet 20 mg PO DAILY 09/08/20 06/21/24 History multivitamin 1 tab PO DAILY 04/13/24 06/21/24 History oxycodone 5 mg tablet 5 mg PO Q6H PRN pain 3 days #14 06/11/24 06/21/24 Rx tabs Have you fallen in the past year?: No Subjective Details: Patient presents following robot-assisted transabdominal preperitoneal umbilical hernia repair with mesh on 06/11/2024. Since hospital discharge they have been doing well. They report minimal postoperative pain. In fact they state each morning they are aware of an incremental improvement over the day prior. They have no wound concerns. They confirm that they are abiding by lifting restrictions, but also reports that they have gone back to work. They state that they are constantly reminded by their coworkers to refrain from any exertional activity. Positively, Mr. Hart also shares that he is not experiencing cramping in his sides as he experienced before his operation. Objective Details: Constitutional: No acute distress, cooperative, appreciative Abdomen: Yellowing ecchymosis about patient's concave umbilicus. There is no fluctuance around the site. There is no tenderness with palpation. Patient's abdomen is nondistended, soft with palpation. The lateral port sites remain covered in Steri-Strips initially but when the Steri- Strips were removed the incision lines remain well apposed without surrounding erythema or drainage. Coding Level of Care Code Global Post Op Diagnoses Status post umbilical hernia repair, follow-up exam Z09 [facility] Medical History (Updated 06/21/24 @ 08:06 by Gail Negro) Umbilical hernia without obstruction and without gangrene Hernia Wears glasses Pulmonary embolism DVT (deep venous thrombosis) Non-smoker History of edema BiPAP (biphasic positive airway pressure) dependence History of stress test History of echocardiogram Cardiology follow-up encounter Dyspnea on exertion MARISOL (obstructive sleep apnea) Premature ventricular contraction Pulmonary embolism and infarction Hx of blood clots Cyst Epidermoid cyst of skin of chest Sleep apnea Surgical History (Updated 06/21/24 @ 09:[address] Joaquin Farfan MD) History of umbilical hernia repair Hx of colonoscopy Hx of colonoscopy History of incision and drainage Family History Father Cancer Lung Social History household members: spouse current occupational status: employed Smoking Status: Never smoker second hand exposure: No alcohol intake: never substance use type: does not use caffeine: Yes Assessment and Plan (No Qualifiers) Assessment and Plan (1) Status post umbilical hernia repair, follow-up exam: Status: Acute Comment: Patient is a 63-year-old male making his first postoperative visit following robot-assisted umbilical hernia repair with mesh placement. He is recovering well and is abiding by lifting restrictions. His exam shows a optimal cosmetic result. He is encouraged to continue with his lifting restrictions and reminded that his return to activity should be gradual once he reaches a full 5 weeks postop. I have asked him to begin applying triple antibiotic ointment to his incisions to fully heal out the overlying skin and thereby protect his mesh underlying. Lastly, I showed him some intraoperative pictures to better facilitate understanding of what was undertaken at the time of his operation. Plan: ??? Wound care with application of triple antibiotic ointment once daily to incision site ??? Continue activity restrictions of no weight greater than 10 pounds (or other exertional activity) for full 5 weeks postop ??? Postop wound check at 5 weeks. Patient invited to call if no issues are present at that time and simply let us know this update and cancel his visit. 06/21/24921 Date Joaquin Farfan MD [facility] Signature: Date (if applicable) CC: Dr. Vick Washington MD [facility] 12 Lead EKGon 06-11-2024 12 Lead EKG [facility] Cardiovascular Services [address] [place] [address] 12 Lead EKG 06/11/24 1023 MR#: [id number] Acct: [id number] Name: COLT HART Rep #: [id number] : 1960 63 From: Joaquin Brizuela MD Attending Dr: Dr. Joaquin Farfan MD Status: REG SDC Ordering Dr: Joaquin Farfan MD Date: 06/11/24 Location: Sex: M C Admitted: Test Reason : preop Blood Pressure : / mmHG Vent. Rate : 064 BPM Atrial Rate : 064 BPM P-R Int : 206 ms QRS Dur : 084 ms QT Int : 400 ms P-R-T Axes : 061 065 022 degrees QTc Int : 412 ms Normal sinus rhythm Normal ECG No previous ECGs available Confirmed by Joaquin Brizuela ([id number]), newspaper photo editor CRISPIN ROSE ([id number]) on 06/11/2024 1:33:15 PM Referred By: Joaquin Farfan Confirmed By:Joaquin Brizuela 06/11/24 1333 Date Joaquin Brizuela MD CC: Dr. Vick Washington MD; Dr. Joqauin Farfan MD Signed [facility] CBC-Complete Blood Cnt No Di ffon 06-11-2024 Erythrocyte distribution width (RBC) [Ratio] 12.7 % Normal 11.6-14.6 [facility] Comment on above: Performed By: #### L 100.0500 #### [facility] [address] [place], [address] Hematocrit (Bld) [Volume fraction] 42.3 % Normal 40-54 [facility] Comment on above: Performed By: #### L 100.0500 #### [facility] [address] [place], [address] Hemoglobin (Bld) [Mass/Vol] 14.1 g/dL Normal 13.0-16.5 [facility] Comment on above: Performed By: #### L 100.0500 #### [facility] [address] [place], [address] MCH (RBC) [Entitic mass] 30.7 pg Normal 27.0-32.0 [facility] Comment on above: Performed By: #### L 100.0500 #### [facility] [address] [place], [address] MCHC (RBC) [Mass/Vol] 33.3 g/dL Normal 32-36 [facility] Comment on above: Performed By: #### L 100.0500 #### [facility] [address] [place], [address] MCV (RBC) [Entitic vol] 92.2 fL Normal 80-94 [facility] Comment on above: Performed By: #### L 100.0500 #### [facility] [address] [place], [address] Platelet mean volume (Bld) [Entitic vol] 9.8 fL Normal 6.2-12.0 [facility] Comment on above: Performed By: #### L 100.0500 #### [facility] [address] [place], [address] Platelets (Bld) [#/Vol] 261 10*3/uL Normal 150-450 [facility] Comment on above: Performed By: #### L 100.0500 #### [facility] [address] [place], [address] RBC (Bld) [#/Vol] 4.59 10*6/uL Low 4.6-6.2 [facility] Comment on above: Performed By: #### L 100.0500 #### [facility] [address] [place], [address] RDW SD 42.8 fl Normal 35.1-43.9 [facility] Comment on above: Performed By: #### L 100.0500 #### [facility] [address] [place], [address] WBC (Bld) [#/Vol] 5.2 10*3/uL Normal 4.4-11.0 [facility] Comment on above: Performed By: #### L 100.0500 #### [facility] [address] [place], [address] Discharge Instructionon 05-21 Discharge Instruction [facility] Medical Records Department [address] [place] [address] Instructions for Home/Discharge Instructions 06/11/24 1413 MR#: [id number] Acct: [id number] Name: COLT HART Rep #: [id number] : 1960 63 From: Joaquin Farfan MD PCP: Dr. Vick Washington MD Status:DEP [facility] Discharge Instructions Diet Discharge Diet: No restrictions Activity Discharge Activity: May Not Drive (While taking narcotic pain medication) and May Shower May shower in (days): 2 Ice area for (Minutes): 20 Lifting Restrictions: No lifting greater than 10 pounds for the next 5 weeks Dressing / Incision Call your doctor if your incision/area has: Continuous Slow Oozing, Increased Pain/ Swelling, Increased Redness, Foul Smelling Discharge and Swelling at the incision site Call your doctor if you observe: Fever of 101 or Higher, Inability to urinate and Inability to have a bowel movement Change Dressing in: 2 days (Please leave Steri-Strips intact until they fall off spontaneously or are taken off at your follow-up visit) Remove Dressing in: 2 days Cleanse incision/area with: Soap Water and Keep Dressing Clean Dry Follow Up Care Please Follow Up With: Joaquin Farfan MD When: 10-14 Days postop Test Results: Test results from this visit will be discussed in further detail at your follow-up appointment, if applicable. Discharge Plan Admission Primary Reason for Your Visit: Umbilical hernia repair Attending Provider: Joaquin Farfan Primary Care Provider: Vick Washington Instructions Additional Instructions / Restrictions: Please resume anticoagulation 48 hours postop Print Language: Bengali Discharge Orders/Prescriptions Prescriptions: New oxycodone 5 mg tablet 5 mg PO Q6H PRN (Reason: pain) 3 Days Qty: 14 0RF Continued rivaroxaban 20 mg tablet 20 mg PO DAILY multivitamin Tablet 1 tab PO DAILY Referrals / Follow Up: Vick Washington MD [Primary Care Provider] - Disposition Disposition (needs filled in before D/C Order can be placed): Home, Self Care 06/12/24 1243 Joaquin Farfan MD CC: Dr. Vick Washington MD Signed [facility] MR/POSTOP.ANEon 06-11-2024 MR/POSTOP.[facility] Medical Records Department [address] [place] [address] Anesthesia Postop Eval I 06/11/24 1432 MR#: [id number] Acct: [id number] Name: COLT HART ALAN Rep #: [id number] : 1960 63 From: Joyce Thomas CRNA PCP: Dr. Vick Washington MD Status:REG SDC Y Race: C Location: [place] [address] Anesthesia: Postop Eval I Current Vital Signs Temperature: 97.2 F Pulse Rate: 74 Blood Pressure: 123/73 Respiratory Rate: 18 Pulse Ox: 94 Oxygen Delivery Method: Simple Mask Oxygen Flow Rate (L/min): 6 Assessment Airway patent: Yes Spontaneous unlabored respirations: Yes Mental status: Asleep nausea: No Vomiting: No Anesthesia Complication: No Fluid Hydration Crystalloid volume administer (ml): 1,500 Total IV fluid infused: 1,500 Progress Note Anesthesia document: Postop Eval 1 completed: Yes 06/11/24 1432 Date Joyce Thomas [employer]WORK[employer] Cosigner Signature: Date CC: Signed [facility] MR/[id number] 06-11-2024 MR/POSTOPAN2 [facility] Medical Records Department [address] [place] [address] Anesthesia Postop Eval II 06/11/24 1608 MR#: [id number] Acct: [id number] Name: BHARATI HARTREE CERVANTES Rep #: [id number] : 1960 63 From: Mati Newton MD PCP: Dr. Vick Washington MD Status:REG SDC Y Race: C Location: [facility]- Anesthesia Postop Eval I Sum Postop Eval Completion status Anesthesia document: Postop Eval 1 completed: Yes Anesthesia Postop Eval I Summary Anesthesia Postop Eval I Summary: Anesthesia Postop Eval I: Assessment Summary Airway patent Yes 06/11/24 14:32 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 Spontaneous unlabored Yes 06/11/24 14:32 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 respirations Mental status Asleep 06/11/24 14:32 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 nausea No 06/11/24 14:32 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 Vomiting No 06/11/24 14:32 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 Anesthesia Postop Eval I: Fluid Summary Crystalloid volume administer 1,500 06/11/24 14:32 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 (ml) Colloids volume administered ( ml) Blood Product volume administered (ml) Total IV fluid infused 1,500 06/11/24 14:32 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 Anesthesia Postop Eval I: Summary Notes Anesthesia Complication No 06/11/24 14:32 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 Anesthesia Complication Comment: Post-operative progress note Anesthesia: Postop Eval II Evaluation Mental status: Awake and Calm Pain Level: 1 nausea: No Vomiting: No Complications Anesthesia Complication: No 06/11/24 1608 Date Mati Newton MD Cosigner Signature: Date CC: Signed [facility] Operative Reporton 4 Operative Report [facility] Medical Records Department [address] [place] [address] Operative Report 06/11/24 1419 MR#: [id number] Acct: [id number] Name: COLT HART Rep #: [id number] : 1960 63 From: Joaquin Farfan MD PCP: Dr. Vick Washington MD Status:[facility] Location: [facility] Report of Operation Date of Procedure: 06/11/24 Pre-Operative Diagnosis: Umbilical hernia Post-Operative Diagnosis: Fat incarcerated umbilical hernia Surgery/Procedure Performed:: Robot-assisted transabdominal preperitoneal repair of umbilical hernia with mesh Description of Surgical Findings:: ??? 1.5 cm fascial defect with apparent herniation of fat above the fascial Surgeon: Joaquin Farfan director of corporate marketing: Evans Aldrich Type of Anesthesia: General/Supplemental Anesthesiologist: Mati Newton Estimated Blood Loss (mL): 10 Description of Procedure: After appropriate identification in the preoperative holding area, the patient was brought to the operating room suite where he was positioned supine the operating table. Preoperative antibiotics were administered. Patient was then induced with a general anesthetic. Patient's abdomen was prepped and draped in the usual sterile fashion. A formal timeout followed to confirm patient and procedure. Procedure was begun with a Veress entry at Pascal's point. Once the set point pressure was reached, this Veress needle was exchanged for an optical trocar and an optical entry was made in this location. Laparoscopic investigation revealed no inadvertent injury to the viscera below. 2 additional 8 mm robotic trocars were placed along the abdominal wall laterally taking care to avoid the bony prominences of the costal margin and the ASIS. A transversus abdominis plane block was created with 40 mL of Exparel, Marcaine, and injectable saline under laparoscopic vision as these ports were placed. The robot was then brought in and docked in standard fashion. Robotically a peritoneal flap was raised approximately 4 cm medial from my trocars and this dissection was carried away towards the contralateral abdominal wall. Great care was taken to lower the peritoneum off of the posterior rectus sheath and avoid any rents in the peritoneal flap. Yet despite this care a tear was made in the superior aspect of the flap on the operating side and I had to work to regain the proper plane against the posterior rectus sheath. This was accomplished and there was just a small additional inadvertent rent in the flap inferior to where the hernia defect had occurred at the conclusion of the dissection. Perforating vessels were sealed with bipolar energy to maintain hemostasis as this flap dissection proceeded. I addressed the hernia directly by opening the scar tissue about the hernia sac and carefully applying manual traction downward until the hernia was fully reduced. A ruler was introduced into the peritoneal cavity to measure for appropriate width of dissection. The flap was then further dissected laterally until it appeared we had adequate width. The hernia defect was closed with a #1 stratafix suture by running the fascial defect closed and then running the suture back upon itself. Next a 8 x [address] mesh was introduced into the peritoneum and a 3-0 V-Loc suture was used to chandelier the mesh. This V-Loc suture was then run towards the operating side of the opening and the needle was then removed. A 3-0 Vicryl suture was then used to loosely tacked the mesh in the cephalad direction as well as reinforce the proximal side of the mesh against the abdominal wall. Lastly the peritoneum was closed with 2x3-0 V-Loc sutures in a running fashion. The robot was then undocked and the trocars were removed. Additional local anesthetic was instilled and the port sites were closed with interrupted 4-0 Monocryl in subcuticular fashion. Steri-Strips and OpSite dressings were applied. Patient was transferred to PACU for ongoing care. Grafts/Implants Used: Ventralex ST hernia patch, reference [id number], Lot [id number] Complications None Admit VTE Documentation VTE Mechan Device Prophylaxis: SCD's Procedures Digestive 40xxx-49xxx: 72159 RPR AA HRN 1ST < 3 CM [facility] 06/12/24 1717 Cosigner Signature (if applicable): CC: Dr. Vick Washington MD; Dr. Joaquin Farfan MD Signed [facility] MRSA/SAID NASAL SCREENon MRSA+SAID SCRN Negative [facility] Comment on above: Performed By: #### M 100.651 ####[facility] [address] [place], [address] Surgery Visit Reporton 05-22 Surgery Visit Report [facility] [address] [place] [address] OFFICE VISIT Date of Service: 05/22/24 MR#: [id number] Acct: [id number] Name: COLT HART BILLY Rep #: [id number] : 1960 Provider: Dr. Joaquin honeycutt MD Age/Sex: 63/M Location: [facility] Status: Signed Intake Vital Signs 04/20/24 09:16 05/22/24 08:05 Height 6 ft 1 in 6 ft 1 in Weight: 281 lb 4 oz BMI 37.0 BP 125/84 H Blood Pressure Location Rt brachial Position Sitting Respiration 18 Pulse 63 Pulse Source Monitor Temp 97.4 F L Temp Source Temporal Pulse Oximetry (%) 98 Oxygen Delivery Method room air Intake Visit Reasons: Hernia Chief Complaint: hernia Is patient in pain?: No Allergies No Known Allergies Allergy (Verified 05/22/24 08:06) Medications ???Medication ???Instructions ???Recorded ???Confirmed ???Type rivaroxaban 20 mg tablet 20 mg PO DAILY 09/08/20 05/22/24 History multivitamin 1 tab PO DAILY 04/13/24 05/22/24 History PFSH Medical History (Updated 05/22/24 @ 17:[address] Joaquin Farfan MD) Hernia Wears glasses Pulmonary embolism DVT (deep venous thrombosis) Non-smoker History of edema BiPAP (biphasic positive airway pressure) dependence Sleep apnea History of stress test History of echocardiogram Cardiology follow-up encounter MARISOL treated with BiPAP Dyspnea on exertion MARISOL (obstructive sleep apnea) Premature ventricular contraction Pulmonary embolism and infarction Hx of blood clots Cyst Epidermoid cyst of skin of chest Sleep apnea Surgical History Hx of colonoscopy History of incision and drainage Family History Father Cancer Lung Social History household members: spouse current occupational status: employed Smoking Status: Never smoker second hand exposure: No alcohol intake: never substance use type: does not use caffeine: Yes HPI HPI HPI: Patient is a 63-year-old male who presents for evaluation of an umbilical hernia. He is known to me from a colonoscopy completed early last month as part of our open access program. I noted his hernia incidentally during evaluation for this colonoscopy and recommended further evaluation. 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 He shares that there has been no real pain from his hernia but expresses increased awareness of its existence and potentially more discomfort because of an awareness. He denies any new health updates. He does share that he is actively trying to lose weight and has taken up intermittent fasting as well as continued exercising by riding mountain bikes. Patient denies any history of staph infections. Mr. Hart denies any prior abdominal surgical history. ROS General General: Yes weight change and fatigue; No appetite, colon cancer, breast cancer or weakness HEENT HEENT: No difficulty swallowing, eye injury, eye surgery, swollen glands or hoarseness Endo Endocrine: No thyroid disease, diabetes mellitus, thyroid cancer, Hair loss, heat intolerance or cold intolerance Skin Skin: No rash or changing moles Cardio Cardiovascular: No murmur, pacemaker, heart disease, atrial fibrillation, high blood pressure, heart attack, heart stent, palpitations, shortness of breat with exertion or chest pain Psych Psychiatric: No depression, anxiety or hearing voices Resp Respiratory: No shortness of breath, Yes sleep apnea, No cough, No COPD, No asthma, No emphysema and No wheezing Gastro Gastrointestinal: Yes abdominal pain, No nausea or vomiting, No diarrhea, No constipation, No blood in stool, No acid reflux, No hemorrhoids, No ulcers, No gallbladder problem and No black,tarry stools Alex Hematologic: Yes blood thinners, No blood disorders, No bleeding, No anemia and Yes blood clots Additional Details: xarelto Neuro Neurologic: No numbness, No tingling and No weakness Exam Const General: cooperative, comfortable and no acute distress Orientation: alert, awake and oriented x3 Resp Effort Inspection: normal respiratory effort GI Other: Obese, well-healed scar just to the right and superior to the umbilicus, visible umbilical herniation is soft but tender to palpation. Hernia defect is estimated at just under 2 cm. It is reducible. Remainder of abdomen is soft and nontender Assessment and Plan Assessment and Plan (1) Hernia: (2) Umbilical hernia without obstructi (more content not included)... [facility] Von Willebrand Profon 2023 vWF Scanned RPT [facility] Comment on above: Order Comment: Test( s) [id number] Willebrand Factor (vWF) Ag was developed and its performance characteristics determined by [facility] It has not been cleared or approved by the Food and Drug Administration. Result Comment: Scan luisa image report available in EMR Performed By: #### L 4500.8000 #### [facility] [address] [place], [address] Colonoscopy Reporton 024 Colonoscopy Report [facility] Medical Records Department [address] [place] [address] Colonoscopy Report MR#: [id number] Acct: [id number] Name: COLT HART Rep #: [id number] : 1960 63 From: Joaquin Farfan MD PCP: Dr. Vick Washington MD Status:[facility] Patient Name: Colt Hart Procedure Date: 04/20/2024 10:20 AM Date of : 1960 Age: 63 Procedure: Colonoscopy Indications: Screening for colorectal malignant neoplasm Providers: Joaquin Farfan MD Referring MD: Joaquin Farfan MD Medicines: See the Anesthesia note for documentation of the administered medications Patient Profile: Last Colonoscopy: more than 10 years ago. Complications: No immediate complications. Estimated blood loss: None. Procedure: Pre-Anesthesia Assessment: - The heart rate, respiratory rate, oxygen saturations, blood pressure, adequacy of pulmonary ventilation, and response to care were monitored throughout the procedure. After I obtained informed consent, the scope was passed under direct vision. Throughout the procedure, the patient's blood pressure, pulse, and oxygen saturations were monitored continuously. The Colonoscope was introduced through the anus and advanced to the cecum, identified by appendiceal orifice and ileocecal valve. The colonoscopy was performed without difficulty. The patient tolerated the procedure well. The quality of the bowel preparation was good. Scope In: 10:30:37 AM Scope Withdrawal Time 0 hours 15 minutes 2 seconds Scope Out: 10:54:23 AM Total Procedure Duration Time 0 hours 23 minutes 46 seconds Findings: The perianal and digital rectal examinations were normal. The entire examined colon appeared normal on direct and retroflexion views. No biopsies or other specimens were collected for this exam. Impression: - The entire examined colon is normal on direct and retroflexion views. Recommendation: - Discharge patient to home (via wheelchair). - Resume previous diet today. - Resume Xarelto (rivaroxaban) at prior dose tomorrow. Refer to managing physician for further adjustment of therapy. - Repeat colonoscopy in 10 years for screening purposes. - Telephone my office for study results in 1 week. Procedure Code(s): --- Professional --- G0121, Colorectal cancer screening; colonoscopy on individual not meeting criteria for high risk Diagnosis Code(s): --- Professional --- Z12.11, Encounter for screening for malignant neoplasm of colon CPT copyright 2021 [employer]. All rights reserved. The codes documented in this report are preliminary and upon clinical quality rn review may be revised to meet current compliance requirements. Joaquin Farfan MD 04/20/2024 11:05:31 AM This report has been signed electronically. Number of Addenda: 0 Note Initiated On: 04/20/2024 10:20 AM 04/20/24 1105 Date Joaquin Farfan MD Cosigner Signature: Date (if indicated) CC: Dr. Vick Washington MD; Dr. Joaquin Farfan MD Date Dictated: 04/20/24 1020 Date Transcribed: Lamp Replacer: DESTINEE Signed [facility] MR/POSTOP.[facility] 04-20-2024 MR/POSTOP.[facility] Medical Records Department [address] [place] [address] Anesthesia Postop Eval I 04/20/24 1103 MR#: [id number] Acct: [id number] Name: COLT HART Rep #: [id number] : 1960 63 From: Roel Scott PCP: Dr. Vick Washington MD Status:REG SDC Y Race: C Location: [place] [address] Anesthesia: Postop Eval I Current Vital Signs Temperature: 97.1 F Pulse Rate: 70 Blood Pressure: 106/61 Respiratory Rate: 16 Pulse Ox: 92 Oxygen Delivery Method: Room Air Assessment Airway patent: Yes Spontaneous unlabored respirations: Yes Mental status: Asleep nausea: No Vomiting: No Anesthesia Complication: No Fluid Hydration Crystalloid volume administer (ml): 800 Total IV fluid infused: 800 Progress Note Anesthesia document: Postop Eval 1 completed: Yes 04/20/24 1104 Date Roel Stringerigner Signature: Date CC: Signed [facility] MR/[id number] 04-20-2024 [facility] Medical Records Department [address] [place] [address] Anesthesia Postop Eval II 04/20/24 1110 MR#: [id number] Acct: [id number] Name: COLT HART Rep #: [id number] : 1960 63 From: Rahat Hebert MD PCP: Dr. Vick Washington MD Status:REG [facility] Y Race: C Location: [place] [address] Anesthesia Postop Eval I Sum Postop Eval Completion status Anesthesia document: Postop Eval 1 completed: Yes Anesthesia Postop Eval I Summary Anesthesia Postop Eval I Summary: Anesthesia Postop Eval I: Assessment Summary Airway patent Yes 04/20/24 11:04 [email or web address] Spontaneous unlabored Yes 04/20/24 11:04 [email or web address] respirations Mental status Asleep 04/20/24 11:04 [email or web address] nausea No 04/20/24 11:04 [email or web address] Vomiting No 04/20/24 11:04 [email or web address] Anesthesia Postop Eval I: Fluid Summary Crystalloid volume administer 800 04/20/24 11:04 [email or web address] (ml) Colloids volume administered ( ml) Blood Product volume administered (ml) Total IV fluid infused 800 04/20/24 11:04 [email or web address] Anesthesia Postop Eval I: Summary Notes Anesthesia Complication No 04/20/24 11:04 [email or web address] Anesthesia Complication Comment: Post-operative progress note Anesthesia: Postop Eval II Evaluation Mental status: Awake Pain Level: 0 nausea: No Vomiting: No Complications Anesthesia Complication: No 04/20/24 1110 Date Rahat Person Signature: Date CC: Signed [facility] CBC W/Diff, Automatedon 02-18 Absolute Lymph 1.35 X10 3/uL Normal 0.83-4.51 [facility] Comment on above: Order Comment: Order Date: 03/08/24 Order Info: 0184-1 - CBCD Performed By: #### L 506.1000, L100.0100, L500.4100, L500.4050, L501.9910, L501.9520, L509.3000 #### [facility] [address] [place], [address] Absolute Neut 3.3 X10 3/uL Normal 2.0-7.7 [facility] Comment on above: Order Comment: Order Date: 03/08/24 Order Info: 0184-1 - CBCD Performed By: #### L 506.1000, L100.0100, L500.4100, L500.4050, L501.9910, L501.9520, L509.3000 #### [facility] [address] [place], [address] Basophils/100 WBC (Bld) 0.7 % Normal 0-1 [facility] Comment on above: Order Comment: Order Date: 03/08/24 Order Info: 0184-1 - CBCD Performed By: #### L 506.1000, L100.0100, L500.4100, L500.4050, L501.9910, L501.9520, L509.3000 #### [facility] [address] [place], [address] Eosinophils/100 WBC (Bld) 3.7 % Normal 0-5 [facility] Comment on above: Order Comment: Order Date: 03/08/24 Order Info: 0184- - CBCD Performed By: #### L 506.1000, L100.0100, L500.4100, L500.4050, L501.9910, L501.9520, L509.3000 #### [facility] [address] [place], [address] Erythrocyte distribution width (RBC) [Ratio] 12.5 % Normal 11.6-14.6 [facility] Comment on above: Order Comment: Order Date: 03/08/24 Order Info: 0184-1 - CBCD Performed By: #### L 506.1000, L100.0100, L500.4100, L500.4050, L501.9910, L501.9520, L509.3000 #### [facility] [address] [place], [address] Hematocrit (Bld) [Volume fraction] 43.9 % Normal 40-54 [facility] Comment on above: Order Comment: Order Date: 03/08/24 Order Info: 0184-1 - CBCD Performed By: #### L 506.1000, L100.0100, L500.4100, L500.4050, L501.9910, L501.9520, L509.3000 #### [facility] [address] [place], [address] Hemoglobin (Bld) [Mass/Vol] 14.3 g/dL Normal 13.0-16.5 [facility] Comment on above: Order Comment: Order Date: 03/08/24 Order Info: 0184-1 - CBCD Performed By: #### L 506.1000, L100.0100, L500.4100, L500.4050, L501.9910, L501.9520, L509.3000 #### [facility] [address] [place], [address] IG% 0.200 Normal 0.0-0.9 [facility] Comment on above: Order Comment: Order Date: 03/08/24 Order Info: [id number] - CBCD Result Comment: IG% - Immature Granulocytes (promyelocytes, myelocytes and metamyelocytes) > 1% indicates that a LEFT SHIFT is Present. Performed By: #### L 506.1000, L100.0100, L500.4100, L500.4050, L501.9910, L501.9520, L509.3000 #### [facility] [address] [place], [address] Lymphocytes/100 WBC (Bld) 25.1 % Normal 19-41 [facility] Comment on above: Order Comment: Order Date: 03/08/24 Order Info: 0184- - CBCD Performed By: #### L 506.1000, L100.0100, L500.4100, L500.4050, L501.9910, L501.9520, L509.3000 #### [facility] [address] [place], [address] MCH (RBC) [Entitic mass] 30.0 pg Normal 27.0-32.0 [facility] Comment on above: Order Comment: Order Date: 03/08/24 Order Info: 0184- - CBCD Performed By: #### L 506.1000, L100.0100, L500.4100, L500.4050, L501.9910, L501.9520, L509.3000 #### [facility] [address] [place], [address] MCHC (RBC) [Mass/Vol] 32.6 g/dL Normal 32-36 [facility] Comment on above: Order Comment: Order Date: 03/08/24 Order Info: 0184-1 - CBCD Performed By: #### L 506.1000, L100.0100, L500.4100, L500.4050, L501.9910, L501.9520, L509.3000 #### [facility] [address] [place], [address] MCV (RBC) [Entitic vol] 92.2 fL Normal 80-94 [facility] Comment on above: Order Comment: Order Date: 03/08/24 Order Info: 0184-1 - CBCD Performed By: #### L 506.1000, L100.0100, L500.4100, L500.4050, L501.9910, L501.9520, L509.3000 #### [facility] [address] [place], [address] Monocytes/100 WBC (Bld) 9.5 % Normal 0-10 [facility] Comment on above: Order Comment: Order Date: 03/08/24 Order Info: 0184-1 - CBCD Performed By: #### L 506.1000, L100.0100, L500.4100, L500.4050, L501.9910, L501.9520, L509.3000 #### [facility] [address] [place], [address] Neutrophils/100 WBC (Bld) 60.8 % Normal 47-70 [facility] Comment on above: Order Comment: Order Date: 03/08/24 Order Info: 0184-1 - CBCD Performed By: #### L 506.1000, L100.0100, L500.4100, L500.4050, L501.9910, L501.9520, L509.3000 #### [facility] [address] [place], [address] Nucleated RBC (Bld) [#/Vol] 0 10*3/uL Normal 0-5 [facility] Comment on above: Order Comment: Order Date: 03/08/24 Order Info: 0184-1 - CBCD Performed By: #### L 506.1000, L100.0100, L500.4100, L500.4050, L501.9910, L501.9520, L509.3000 #### [facility] [address] [place], [place], [address] (977) Platelet mean volume (Bld) [Entitic vol] 10.4 fL Normal 6.2-12.0 [facility] [facility] Comment on above: Order Comment: Order Date: 03/08/24 Order Info: 0184-1 - CBCD Performed By: #### L 506.1000, L100.0100, L500.4100, L500.4050, L501.9910, L501.9520, L509.3000 #### [facility] [address] [place], [place], [address] (234) Platelets (Bld) [#/Vol] 245 10*3/uL Normal 150-450 [facility] Comment on above: Order Comment: Order Date: 03/08/24 Order Info: 0184-1 - CBCD Performed By: #### L 506.1000, L100.0100, L500.4100, L500.4050, L501.9910, L501.9520, L509.3000 #### [facility] [address] [place], [place], [address] (878) RBC (Bld) [#/Vol] 4.76 10*6/uL Normal 4.6-6.2 [facility] Comment on above: Order Comment: Order Date: 03/08/24 Order Info: 0184-1 - CBCD Performed By: #### L 506.1000, L100.0100, L500.4100, L500.4050, L501.9910, L501.9520, L509.3000 #### [facility] [address] [place], [place], [id number] (793) RDW SD 42.5 fl Normal 35.1-43.9 [facility] Comment on above: Order Comment: Order Date: 03/08/24 Order Info: 0184- - CBCD Performed By: #### L 506.1000, L100.0100, L500.4100, L500.4050, L501.9910, L501.9520, L509.3000 #### [facility] [address] [place], [address] WBC (Bld) [#/Vol] 5.4 10*3/uL Normal 4.4-11.0 [facility] Comment on above: Order Comment: Order Date: 03/08/24 Order Info: 0184 - CBCD Performed By: #### L 506.1000, L100.0100, L500.4100, L500.4050, L501.9910, L501.9520, L509.3000 #### [facility] [address] [place], [address] Comprehensive Metabolic Prof [facility] 03-09-2024 Albumin [Mass/Vol] 3.5 g/dL Normal 3.2-5.0 [facility] Comment on above: Order Comment: Order Date: 03/08/24Order Info: 0786-1 - CMPOrder Info: [id number] - LIPIDOrder Info: [id number] - TSHOrder Info: 2857-1 - PSA Performed By: #### L 506.1000, L100.0100, L500.4100, L500.4050, L501.9910, L501.9520, L509.3000 ####[facility] [address] [place], [place], [id number] Albumin/Globulin [Mass ratio] 1.0 {ratio} Normal 0.9-2.4 [facility] Comment on above: Order Comment: Order Date: 03/08/24Order Info: 0786-1 - CMPOrder Info: [id number] - LIPIDOrder Info: [id number] - TSHOrder Info: 2857-1 - PSA Performed By: #### L 506.1000, L100.0100, L500.4100, L500.4050, L501.9910, L501.9520, L509.3000 ####[facility] [address] [place], [address] ALK P 69 U/L Normal 45-117 [facility] Comment on above: Order Comment: Order Date: 03/08/24Order Info: 86-1 - CMPOrder Info: [id number] - LIPIDOrder Info: [id number] - TSHOrder Info: 2857-1 - PSA Performed By: #### L 506.1000, L100.0100, L500.4100, L500.4050, L501.9910, L501.9520, L509.3000 ####[facility] [address] [place], [address] ALT [Catalytic activity/Vol] 30 U/L Normal 16-61 [facility] Comment on above: Order Comment: Order Date: 03/08/24Order Info: 86-1 - CMPOrder Info: [id number] - LIPIDOrder Info: 63 - TSHOrder Info: 2857-1 - PSA Performed By: #### L 506.1000, L100.0100, L500.4100, L500.4050, L501.9910, L501.9520, L509.3000 ####[facility] [address] [place], [address] AST [Catalytic activity/Vol] 22 U/L Normal 15-37 [facility] Comment on above: Order Comment: Order Date: 03/08/24Order Info: 86-1 - CMPOrder Info: [id number] - LIPIDOrder Info: [id number] - TSHOrder Info: 2857-1 - PSA Performed By: #### L 506.1000, L100.0100, L500.4100, L500.4050, L501.9910, L501.9520, L509.3000 ####[facility] [address] [place], [address] Bilirubin [Mass/Vol] 0.70 mg/dL Normal 0.20-1.00 [facility] Comment on above: Order Comment: Order Date: 03/08/24Order Info: 785-1 - CMPOrder Info: 11595-9 - LIPIDOrder Info: 6-3 - TSHOrder Info: 2857-1 - PSA Result Comment: For patients on eltrombopag therapy, use of Dimension [place] TBIL is not recommended. Performed By: #### L 506.1000, L100.0100, L500.4100, L500.4050, L501.9910, L501.9520, L509.3000 ####[facility] [address] [place], [address] BUN/CRE 17.0 RATIO Normal 10-20 [facility] Comment on above: Order Comment: Order Date: 03/08/24Order Info: 785-09 - CMPOrder Info: - LIPIDOrder Info: 3 - TSHOrder Info: [id number] - PSA Performed By: #### L 506.1000, L100.0100, L500.4100, L500.4050, L501.9910, L501.9520, L509.3000 ####[facility] [address] [place], [address] CA,Total 8.8 mg/dL Normal 8.5-10.1 [facility] Comment on above: Order Comment: Order Date: 03/08/24Order Info: 785- - CMPOrder Info: [id number] - LIPIDOrder Info: [id number] - TSHOrder Info: 2857-1 - PSA Performed By: #### L 506.1000, L100.0100, L500.4100, L500.4050, L501.9910, L501.9520, L509.3000 ####[facility] [address] [place], [address] Chloride [Moles/Vol] 107 mmol/L Normal 98-107 [facility] Comment on above: Order Comment: Order Date: 03/08/24Order Info: 785-09 - CMPOrder Info: [id number] - LIPIDOrder Info: 3 - TSHOrder Info: 2856-09 - PSA Performed By: #### L 506.1000, L100.0100, L500.4100, L500.4050, L501.9910, L501.9520, L509.3000 ####[facility] [address] [place], [address] CO2 [Moles/Vol] 27.0 mmol/L Normal 21.0-32.0 [facility] Comment on above: Order Comment: Order Date: 03/08/24Order Info: 785-09 - CMPOrder Info: - LIPIDOrder Info: [id number] - TSHOrder Info: 2856-09 - PSA Performed By: #### L 506.1000, L100.0100, L500.4100, L500.4050, L501.9910, L501.9520, L509.3000 ####[facility] [address] [place], [address] Creatinine [Mass/Vol] 1.12 mg/dL Normal 0.70-1.30 [facility] Comment on above: Order Comment: Order Date: 03/08/24Order Info: 785-09 - CMPOrder Info: - LIPIDOrder Info: [id number] - TSHOrder Info: 2856-09 - PSA Result Comment: The validity of the calculated GFR GFRAA in patients over 70 years has not been determined. Clinical correlation is essential. Performed By: #### L 506.1000, L100.0100, L500.4100, L500.4050, L501.9910, L501.9520, L509.3000 ####[facility] [address] [place], [address] EST GFR - AA 85 mL/min Normal >60 [facility] Comment on above: Order Comment: Order Date: 03/08/24Order Info: 785-09 - CMPOrder Info: - LIPIDOrder Info: [id number] - TSHOrder Info: 2856-1 - PSA Result Comment: Afri can Salv[place] GFR Calc Performed By: #### L 506.1000, L100.0100, L500.4100, L500.4050, L501.9910, L501.9520, L509.3000 ####[facility] [address] [place], [address] GAP 4 Low 5-15 [facility] Comment on above: Order Comment: Order Date: 03/08/24Order Info: 785- - CMPOrder Info: [id number] - LIPIDOrder Info: [id number] - TSHOrder Info: 2856-09 - PSA Performed By: #### L 506.1000, L100.0100, L500.4100, L500.4050, L501.9910, L501.9520, L509.3000 ####[facility] [address] [place], [address] GFR/1.73 sq M.predicted among non-blacks MDRD (S/P/Bld) [Vol rate/Area] 70 mL/min/{1.73_m2} Normal >60 [facility] Comment on above: Order Comment: Order Date: 03/08/24Order Info: 785-09 - CMPOrder Info: - LIPIDOrder Info: [id number] - TSHOrder Info: 2856- - PSA Result Comment: Non- GFR Calc Performed By: #### L 506.1000, L100.0100, L500.4100, L500.4050, L501.9910, L501.9520, L509.3000 ####[facility] [address] [place], [address] Globulin (S) [Mass/Vol] 3.6 g/dL Normal 2.2-4.2 [facility] Comment on above: Order Comment: Order Date: 03/08/24Order Info: 785- - CMPOrder Info: [id number] - LIPIDOrder Info: 3 - TSHOrder Info: [id number] - PSA Performed By: #### L 506.1000, L100.0100, L500.4100, L500.4050, L501.9910, L501.9520, L509.3000 ####[facility] [address] [place], [address] Glucose [Mass/Vol] 95 mg/dL Normal 74-106 [facility] Comment on above: Order Comment: Order Date: 03/08/24Order Info: 86-1 - CMPOrder Info: [id number] - LIPIDOrder Info: 3 - TSHOrder Info: 285- - PSA Performed By: #### L 506.1000, L100.0100, L500.4100, L500.4050, L501.9910, L501.9520, L509.3000 ####[facility] [address] [place], [address] Potassium [Moles/Vol] 4.1 mmol/L Normal 3.5-5.1 [facility] Comment on above: Order Comment: Order Date: 03/08/24Order Info: 785- - CMPOrder Info: [id number] - LIPIDOrder Info: 3 - TSHOrder Info: [id number] - PSA Performed By: #### L 506.1000, L100.0100, L500.4100, L500.4050, L501.9910, L501.9520, L509.3000 ####[facility] [address] [place], [address] Sodium [Moles/Vol] 138 mmol/L Normal 136-145 [facility] Comment on above: Order Comment: Order Date: 03/08/24Order Info: 86-1 - CMPOrder Info: [id number] - LIPIDOrder Info: 3 - TSHOrder Info: 2857- - PSA Performed By: #### L 506.1000, L100.0100, L500.4100, L500.4050, L501.9910, L501.9520, L509.3000 ####[facility] [address] [place], [address] T PROT 7.1 g/dL Normal 6.4-8.2 [facility] Comment on above: Order Comment: Order Date: 03/08/24Order Info: 07-1 - CMPOrder Info: [id number] - LIPIDOrder Info: [id number] - TSHOrder Info: 285-1 - PSA Performed By: #### L 506.1000, L100.0100, L500.4100, L500.4050, L501.9910, L501.9520, L509.3000 ####[facility] [address] [place], [address] Urea nitrogen [Mass/Vol] 19 mg/dL High 7-18 [facility] Comment on above: Order Comment: Order Date: 03/08/24Order Info: 785-09 - CMPOrder Info: - LIPIDOrder Info: 63 - TSHOrder Info: 2856-09 - PSA Performed By: #### L 506.1000, L100.0100, L500.4100, L500.4050, L501.9910, L501.9520, L509.3000 ####[facility] [address] [place], [address] Lipid Profileon 03-09-2024 Cholesterol [Mass/Vol] 161 mg/dL Normal 200 [facility] Comment on above: Order Comment: Order Date: 03/08/24Order Info: 785- - CMPOrder Info: [id number] - LIPIDOrder Info: [id number] - TSHOrder Info: 2857-1 - PSA Result Comment: <200 mg/dL Desirable 200-240 mg/dL Borderline >240 mg/dL High Risk Performed By: #### L 506.1000, L100.0100, L500.4100, L500.4050, L501.9910, L501.9520, L509.3000 ####[facility] [address] [place], [address] Cholesterol in HDL [Mass/Vol] 38 mg/dL Low [facility] Comment on above: Order Comment: Order Date: 03/08/24Order Info: 785- - CMPOrder Info: - LIPIDOrder Info: [id number] - TSHOrder Info: 7- - PSA Result Comment: The drugs N-Acetylcysteine and Metamizole may falsely depress this assay. Reference Range HDL <40 mg/dL Low HDL Cholesterol HDL >or= 60 mg/dL High HDL Cholesterol Performed By: #### L 506.1000, L100.0100, L500.4100, L500.4050, L501.9910, L501.9520, L509.3000 ####[facility] [address] [place], [address] Cholesterol in LDL [Mass/Vol] 88 mg/dL Normal 0-130 [facility] Comment on above: Order Comment: Order Date: 03/08/24Order Info: 785-09 - CMPOrder Info: - LIPIDOrder Info: [id number] - TSHOrder Info: 2856-09 - PSA Performed By: #### L 506.1000, L100.0100, L500.4100, L500.4050, L501.9910, L501.9520, L509.3000 ####[facility] [address] [place], [address] Cholesterol in VLDL [Mass/Vol] 35 mg/dL Normal 5-40 [facility] Comment on above: Order Comment: Order Date: 03/08/24Order Info: 785-09 - CMPOrder Info: - LIPIDOrder Info: 3 - TSHOrder Info: 7 - PSA Performed By: #### L 506.1000, L100.0100, L500.4100, L500.4050, L501.9910, L501.9520, L509.3000 ####[facility] [address] [place], [address] Triglyceride [Mass/Vol] 175 mg/dL Normal [facility] Comment on above: Order Comment: Order Date: 03/08/24Order Info: 0786-1 - CMPOrder Info: [id number] - LIPIDOrder Info: [id number] - TSHOrder Info: 2857-1 - PSA Result Comment: The drugs N-Acetylcysteine and Metamizole may falsely depress this assay. Serum Triglycerides Reference Interval Normal <150 mg/dL Borderline high 150 - 199 mg/dL High 200 - 499 mg/dL Very High > or = 500 mg/dL Performed By: #### L 506.1000, L100.0100, L500.4100, L500.4050, L501.9910, L501.9520, L509.3000 ####[facility] [address] [place], [place], [id number] PSA,Total - Annual Screenon 03-09-2024 PSA,TOT SCREEN 1.12 ng/mL Normal 0.00-4.00 [facility] Comment on above: Order Comment: Order Date: 03/08/24Order Info: 0786-1 - CMPOrder Info: [id number] - LIPIDOrder Info: [id number] - TSHOrder Info: 2857-1 - PSA Result Comment: This test was performed using the TPSA assay method for the TuneIn chemistry system. Values obtained with different assay methods cannot be used interchangably. When changing PSA assays in the course of monitoring a patient, additional sequential testing should be carried out to confirm baseline values. Performed By: #### L 506.1000, L100.0100, L500.4100, L500.4050, L501.9910, L501.9520, L509.3000 ####[facility] [address] [place], [place], [id number] Testosterone, Serum Totalon 03-09-2024 Testosterone [Mass/Vol] 280.87 ng/dL Normal [facility] Comment on above: Order Comment: Order Date: 03/08/24Order Info: [id number] - APLV61Gaqjj Info: 2986-8 - DARVIN Result Comment: CENT RAL 90% REFERENCE RANGES MALE AGE <50 197.44 - 669.58 ng/dL MALE AGE > or = 50 187.72 - 684.19 ng/dL FEMALE AGE <50 8.38 - 35.01 ng/dL FEMALE AGE > or = 50 <7.00 - 35.92 ng/dL Effective as of 04/14/21 Performed By: #### L 506.1000, L100.0100, L500.4100, L500.4050, L501.9910, L501.9520, L509.3000 ####[facility] [address] [place], [address] Thyroid Stim Hormone (TSH)on 03-09-2024 TSH 1.97 uIU/mL Normal 0.358-3.74 [facility] Comment on above: Order Comment: Order Date: 03/08/24Order Info: 0786-1 - CMPOrder Info: [id number] - LIPIDOrder Info: [id number] - TSHOrder Info: 2857-1 - PSA Performed By: #### L 506.1000, L100.0100, L500.4100, L500.4050, L501.9910, L501.9520, L509.3000 ####[facility] [address] [place], [place], [id number] Vitamin D,25 Hydroxyon 03-09 Vitamin D 25-OH 40.2 ng/mL Normal [facility] Comment on above: Order Comment: Order Date: 03/08/24Order Info: [id number] - TQQA86Eeehn Info: 2986-8 - DARVIN Result Comment: Tiana min D 25(OH) Status Range Deficiency <20 ng/mL (50nmol/L) Insufficiency 20 - 30 ng/mL (50 - 75 nmol/L) Sufficiency 30 - 100 ng/mL (75 - 250 nmol/L) Toxicity >100 ng/mL (>250 nmol/L) Performed By: #### L 506.1000, L100.0100, L500.4100, L500.4050, L501.9910, L501.9520, L509.3000 ####[facility] [address] [place], [address] CV VENOUS LEG LTon 3 CV VENOUS LEG LT [place] [address] Patient: COLT HART Phone#: : 1960 Age: 62 Gender: M Pt. Type: ER Account: [id number] Location: 052 Ordering: DR. YU TREJO Exam Date: 04/07/2023/8:09 Family Phys: Charge Code: [id number] Physician: [place] Order #: [id number] Dose#: PROCEDURE: VENOUS DOPPLER LT LEG COMPARISON: None. INDICATIONS: Pain TECHNIQUE: Color duplex Doppler ultrasound evaluation analysis was performed in the usual manner. 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 Type: ER Account: [id number] Location: 052 Ordering: DR. YU TREJO Exam Date: 04/07/2023/8:09 Family Phys: Charge Code: [id number] Physician: [place] Order #: [id number] Dose#: FINDINGS: THROMBI: None visible. COMPRESSIBILITY: Normal. OTHER: Negative. CONCLUSION: 1. No evidence of deep venous thrombosis in the left lower extremity Dictated by: Monica Oh MD on 04/07/2023 at 8:40 Approved by: Monica Oh MD on 04/07/2023 at 8:41 Normal [facility] TIBIA-FIBULA LTon 04-04-2023 TIBIA-FIBULA LT [place] [address] [place], [place] [address] Patient: COLT HART Phone#: : 1960 Age: 62 Gender: M Pt. Type: ER Account: [id number] Location: 052 Ordering: STORMY FRANCO Exam Date: 04/04/2023/18:12 Family Phys: NO DOCTOR Charge Code: [id number] Physician: [place] Order #: [id number] Dose#: PROCEDURE: X-RAY TIB FIB LT 2 VIEWS COMPARISON: None. INDICATIONS: Trauma. FINDINGS: BONES: Normal. No acute abnormality. No fracture or dislocation. Degenerative spurring at the distal tibia. SOFT TISSUES: Soft tissue swelling and stranding throughout soft tissues from the level of the proximal tibia to the level of the ankle EFFUSION: None visible. OTHER: Negative. CONCLUSION: 1. No acute osseous abnormality 2. Soft tissue swelling and stranding of the left distal lower extremity. Dictated by: Monica Oh MD on 04/04/2023 at 18:24 Approved by: Monica Oh MD on 04/04/2023 at 18:28 Normal [facility] CT HEAD WITHOUT ONLYon 07-09 CT HEAD WITHOUT ONLY EXAMINATION: CT HEAD WITHOUT ONLY HISTORY: Injury of head HEAD CT WITHOUT CONTRAST: 07/09/2021 9:30 AM EDT Clinical Data: Injury of head Comparison: No previous Unenhanced axial data from base to vertex. INTRA-AXIAL: No acute hemorrhage. No acute infarction is evident. EXTRA-AXIAL: No acute hemorrhage. No focal fluid collection. BRAIN VOLUME: Unremarkable for age. VENTRICLES: No hydrocephalus PARANASAL SINUSES: Significant mucosal disease in the ethmoids. Modest rinds of mucosal thickening in the sphenoids. No air-fluid levels in the included aspects of the paranasal sinuses MASTOIDS: Clear. CALVARIUM: No acute finding. EXTRACALVARIAL: Skin idania towards the vertex anteriorly. IMPRESSION: 1. No evidence of acute intracranial process on this unenhanced study as described. All CT scans at this facility use dose modulation, iterative reconstruction, and/or weight based dosing when appropriate to reduce radiation dose to as low as reasonably achievable. Dosage: COMPARISON: None. TECHNIQUE: CT examination of the head without IV contrast. Dose reduction techniques were achieved by using automated exposure control and/or adjustment of mA and/or kV according to patient size and/or use of iterative reconstruction technique. FINDINGS: IMPRESSION: Normal [facility] Lupus Anticoag Panelon 05-31 Interpretation Normal [facility] Comment on above: Result Comment: (NOT E) Performing Pathologist: Dr. Carmel Ferraro DO Interpretation: Abnormal - see comment below. SIGNIFICANT FINDINGS: Heparin effect, cannot test for lupus anticoagulant Laboratory testing was performed to evaluate the presence of a lupus anticoagulant and anti-phospholipid antibodies. The APTT value was prolonged with a normal PT/INR. Heparin activity was detected in the plasma. The heparin level was too high to use a heparin removal technique. A lupus anticoagulant or other coagulation inhibitor cannot be excluded. Repeat testing when the patient is no longer receiving heparin would be recommended. The elevated TT is consistent with a heparin effect. ANTIPHOSPHOLIPID ANTIBODY STUDIES: The IgG, IgM and IgA anticardiolipin antibody titers were all negative. Both the IgG and IgM Beta-2 Glycoprotein I antibody titers were negative. DRVVT 1:1 Mix HPHI Normal 32.7-46.7 [facility] DRVVT Confirm Ratio HPHI Normal <1.21 [facility] Lab DRVVT Screen HPHI Normal 32.7-46.7 [facility] Hex Phase Confirm HPHI Normal 41.8-54.9 [facility] Hex Phase Delta HPHI Normal <9.1 [facility] Hex Phase Screen HPHI Normal 45.0-59.9 [facility] PNP HPHI Abnormal Negative [facility] Thrombin Time >120.0 High <18.6 [facility] Anti Xa Inhib Assay *LAB USE Normal [facility] Comment on above: Result Comment: Anti Xa activity was detected. This test was developed and its performance characteristics determined by [facility]'s [facility] ([facility]). It has not been cleared or approved by the FDA. [facility] is regulated under CLIA as qualified to perform high complexity testing. This test is used for clinical purposes. It should not be regarded as investigational or for research. aPTT Coag (Bld) [Time] HPHI Normal <33.2 [facility] aPTT Coag (Bld) [Time] s High 24.4-33.4 [facility] Antithrombin Assayon 019 Antithrombin Assay 91 % Normal 84-138 [facility] Reference Lab Comment on above: Performed By: #### P RCFUN, AT3ASY, PRSCLT #### [facility] Hematology [address] [place] [place] [id number] Factor V Leiden PCRon 2018 FV Leiden Report Normal [facility] Reference Lab Comment on above: Result Comment: (NOT E) Performing Pathologist: Christi Urban Interpretation: Result: NEGATIVE Interpretation: The DNA sample is negative for the c.1601G>A variant (legacy name R506Q) in the Factor V (F5) gene. This variant is commonly known as Factor V Leiden. This result is not associated with an increased risk of thromboembolic disease. The Factor V Leiden assay will not detect individuals with activated protein C resistance who do not have the c.1601G>A variant (less than 5% of those with activated protein C resistance). These individuals may be identified by ordering the functional assay for Activated Protein C Resistance. Thromboembolic disease is a multifactorial disorder, and other causes are not excluded by this result. Method: Isolated genomic DNA from the patient's blood specimen is evaluated for the c.1601G>A (p.Vox686Qat; [id number]) variant of the F5 gene [RefSeq NM_[id number]; GRCh38/hg38] by multiplex polymerase chain reaction (PCR) followed by melting curve analysis. Limitations: This assay is designed to detect the c.1601G>A variant in the F5 gene. Uncommon variants or single nucleotide polymorphisms may affect binding of probes and may rarely result in false negative, false positive or indeterminate results. This assay does not detect other disease-associated rare variants in F5 or other causes of thromboembolic disease. This test was developed and its performance characteristics determined by [facility]'s [facility] ([facility]). It has not been cleared or approved by the FDA. [facility] is regulated under CLIA as certified to perform high-complexity testing. This test is used for clinical purpose. It should not be regarded as investigational or for research. References: 1) Margaret R, Ciaran G, Gaurav P. The genetics of venous thromboembolism. A meta-analysis involving approximately 120,000 cases and 180,000 controls. Thromb Haemost 2009;102(2):360-70. 2) Inherited Thrombophilias in . ACOG Practice Bulletin. No. 197. [place] [employer]. Obstet Gynecol 2018;132:e18???34. 3) Sandra ALVARENGA. Factor V Leiden Thrombophilia. Latanya Med. 2011;13(1):1-16. 4) Pharmacogenomic summary [email or web address] Lupus Anticoag Panelon 05-30 Beta2 Glycoprot IgG <9 Normal <20 [facility] Beta2 Glycoprot IgM <9 Normal <20 [facility] IgA Cardiolipin Ab. <9 Normal 0-11 [facility] IgG Cardiolipin Ab. <9 Normal 0-9 [facility] IgM Cardiolipin Ab. <9 Normal 0-11 [facility] Protein C Functionalon 05-30 Protein [Mass/Vol] 110 % Normal 76-147 [facility] Reference Lab Comment on above: Performed By: #### P RCFUN, AT3ASY, PRSCLT #### [facility] Hematology [address] [place], [place] [address] Protein S Clottableon 2018 Protein S Clottable 85 % Normal 59-131 [facility] Reference Lab Comment on above: Performed By: #### P RCFUN, AT3ASY, PRSCLT #### [facility]ematology [address] [place], [place] [address] Prothrombin Gene PCRon 05-30 PT Gene Report Normal [facility] Comment on above: Result Comment: (NOT E) Performing Pathologist: Christi Urban Interpretation: PT Gene Mutation Result: NORMAL PT Gene Mutation Interpretation: Interpretation: The DNA sample is negative for the c.*97G>A variant (legacy name 63051L>A) in the 3' untranslated region of the Factor II (F2) gene. This result is not associated with an increased risk of thromboembolic disease. Thromboembolic disease is a multifactorial disorder and other causes are not excluded by this result. Method: Isolated Genomic DNA from the patient's blood specimen is evaluated for the c*97G>A ([id number]) variant of the F2 gene [RefSeq [id number];GRCh38/hg38] by multiplex polymerase chain reaction (PCR) followed by melting curve analysis. Limitations: This assay is designed to detect the c.*97G>A (86548M>A) variant in the F2 gene. Uncommon variants or single nucleotide polymorphisms may affect binding of probes and may rarely result in false negative, false positive or indeterminate results. This assay does not detect other disease-associated rare variants in F2 or other causes of thromboembolic disease. This test was developed and its performance characteristics determined by [facility]'s [facility] ([facility]). It has not been cleared or approved by the FDA. -[facility] is regulated under CLIA as certified to perform high-complexity testing. This test is used for clinical purpose. It should not be regarded as investigational or for research. References: 1) Inherited Thrombophilias in . ACOG Practice Bulletin. No. 197. [employer]. Obstet Gynecol 2018;132:e18???34. 2) Missyt SR, Fela FR, Solomon PH, and Margie BUCHANAN. A common genetic variation in the 3'-untranslated region of the prothrombin gene is associated with elevated plasma prothrombin levels and an increase in venous thrombosis. Blood 88:3698-703,1995. 3) Kaela I, Cassi V, Sera C, Danielle K. Prothrombin 18166D>T: 16 new cases, association with the 16581M>G polymorphism, and literature review. J Thromb Haemost. 2009;9:1585-7. Lupus Anticoag Panelon 05-29 aPTT Coag (Bld) [Time] s High 23.0-32.4 [facility] INR Coag (PPP) [Relative time] 1.2 {INR} Normal 0.9-1.3 [facility] PT Sec 13.0 sec Normal 9.7-13.0 [facility] Vital Signs Date Time Vital Sign Value Performing Clinician Milagros rodrigues 07-29-2022 08:24-0500 Body height 185.42 cm ATM [employer]IC-C Floridalma Kavon [employer] Work Phone: [facility] Work Phone: 07-29-2022 08:24-0500 Body mass index (BMI) [Ratio] 37.2 kg/m2 [employer]-C Floridalma Kavon [employer] Work Phone: [facility] Work Phone: 07-29-2022 08:24-0500 Body weight 127.91 kg ATM [employer]IC-C Floridalma Kavon [employer] Work Phone: [facility] Work Phone: 07-29-2022 08:24-0500 Diastolic blood pressure 59 mm[Hg] ATM MECH[employer]IC-C Floridalma Kavon [employer] Work Phone: [facility] Work Phone: 07-29-2022 08:24-0500 Heart rate 68 /min ATM ME[employer]IC-C Floridalma Kavon [employer] Work Phone: [facility] Work Phone: 07-29-2022 08:24-0500 Respiratory rate 16 /min ATM ME[employer]IC-C Floridalma Kavon [employer] Work Phone: [facility] Work Phone: 07-29-2022 08:24-0500 Systolic blood pressure 103 mm[Hg] ATM MECHANIC-C Floridalma Kavon [employer] Work Phone: [facility] Work Phone: 06-29-2022 13:21-0400 Body height 185.42 cm ATM ME[employer]IC-C Floridalam Kavon [employer] Work Phone: [facility] Work Phone: 06-29-2022 13:21-0400 Body mass index (BMI) [Ratio] 36.9 kg/m2 ATM [employer]-C Floridalma Kavon [employer] Work Phone: [facility] Work Phone: 06-29-2022 13:21-0400 Body temperature 97.3 [degF] ATM [employer]IC-C Floridalma Kavon [employer] Work Phone: [facility] Work Phone: 06-29-2022 13:21-0400 Body weight 127.06 kg ATM ME[employer]IC-C Floridalma Kavon [employer] Work Phone: [facility] Work Phone: 06-29-2022 13:21-0400 Diastolic blood pressure 79 mm[Hg] ATM MECHANIC-C Floridalma Kavon ATM ME[employer]IC Work Phone: [facility] Work Phone: 06-29-2022 13:21-0400 Heart rate 79 /min ATM MECHANIC-C Floridalma Kavon ATM [employer]IC Work Phone: [facility] Work Phone: 06-29-2022 13:21-0400 Respiratory rate 18 /min ATM MECH[employer]IC-C Floridalma Kavon [employer]IC Work Phone: [facility] Work Phone: 06-29-2022 13:21-0400 SaO2% (BldA) [Mass fraction] 96 % ATM MECH[employer]IC-C Floridalma Kavon [employer] ME[employer]IC Work Phone: [facility] Work Phone: 06-29-2022 13:21-0400 Systolic blood pressure 126 mm[Hg] ATM MECHANIC-C Floridalma Kavon ATM ME[employer]IC Work Phone: [facility] Work Phone: 06-18-2022 10:33-0400 Body mass index (BMI) [Ratio] 36.7 kg/m2 ATM [employer]IC-C Floridalma Kavon [employer] Work Phone: [facility] Work Phone: 06-18-2022 10:33-0400 Body weight 126.32 kg ATM MECH[employer]IC-C Floridalma Kavon [employer]IC Work Phone: [facility] Work Phone: 06-18-2022 10:33-0400 Diastolic blood pressure 66 mm[Hg] ATM MECHANIC-C Floridalma Kavon ATM [employer] Work Phone: [facility] Work Phone: 06-18-2022 10:33-0400 Heart rate 64 /min ATM MECH[employer]IC-C Floridalma Kavon ATM [employer]IC Work Phone: [facility] Work Phone: 06-18-2022 10:33-0400 Respiratory rate 16 /min ATM MECH[employer]IC-C Floridalma Kavon [employer]IC Work Phone: [facility] Work Phone: 06-18-2022 10:33-0400 Systolic blood pressure 110 mm[Hg] ATM MECHANIC-C Floridalma Kavon ATM ME[employer] Work Phone: [facility] Work Phone: Encounters Encounter Date Encounter Type Care Provider Facility Start: 12-04-2024 End: 12-04-2024 ambulatory Chalon Padmini Facility:[facility] Start: 10-26-2024 End: 10-26-2024 ambulatory Chalon Padmini Facility:[facility] Start: 09-28-2024 End: 09-28-2024 ambulatory Chalon Padmini Facility:[facility] Start: 08-29-2024 End: 08-29-2024 ambulatory Chalon Padmini Facility:[facility] Start: 08-20-2024 End: 08-20-2024 ambulatory Chalon Padmini Facility:[facility] Start: 08-07-2024 End: 08-07-2024 ambulatory Renay Bruno [employer] [facility]IC Facility:[facility] Start: 08-03-2024 End: 08-03-2024 ambulatory Renay Bruno [facility]CH[employer]IC Facility:[facility] Start: 07-20-2024 End: 07-20-2024 ambulatory Chalon Padmini Facility:[facility] Start: 07-16-2024 End: 07-16-2024 ambulatory Chalon Padmini Facility:[facility] Start: 07-06-2024 Encounter for other preprocedural examination Joaquin Farfan [facility] Start: 06-21-2024 End: 06-21-2024 ambulatory Chalon Padmini Facility:[facility] Start: 06-11-2024 Encounter for other preprocedural examination Joaquin Farfan [facility] Start: 06-11-2024 ambulatory Joaquin Adolph Facility: [facility] Start: 06-11-2024 End: 06-11-2024 ambulatory Joaquin Samanthamacy Facility:[facility] Start: 05-22-2024 End: 05-22-2024 ambulatory Vick Washington Facility:[facility] Start: 05-22-2024 End: 05-22-2024 ambulatory Joaquin Singhmacy Facility:[facility] Start: 05-02-2024 End: 05-02-2024 ambulatory Chalgail Washington Facility:[facility] Start: 04-20-2024 ambulatory Joaquin Adolph Facility: [facility] Start: 04-20-2024 End: 04-20-2024 ambulatory Joaquin Singhmacy Facility:[facility] Start: 04-12-2024 ambulatory Vick Washington [facility] Start: 03-09-2024 End: 03-09-2024 ambulatory Chalgail Padmini Facility:[facility] Start: 04-07-2023 End: 04-07-2023 Emergency department patient visit YU TREJO [facility] Start: 04-04-2023 End: 04-04-2023 Emergency department patient visit STORMY FRANCO [facility] Start: 07-29-2022 End: 07-29-2022 Patient encounter procedure [facility]-C Floridalma Jacobson [employer] Work Phone: [facility] Start: 07-28-2022 End: 07-28-2022 ambulatory ATM [employer]-C Floridalma Jacobson [employer] Work Phone: [facility] Work Phone: Start: 07-28-2022 End: 07-28-2022 Patient encounter procedure ATM ME[employer]IC-C Floridalma Jacobson [employer] Work Phone: [facility] Start: 07-09-2022 End: 07-09-2022 ambulatory ATM [facility]-C Floridalma Jacobson [employer] Work Phone: [facility] Work Phone: Start: 07-09-2022 End: 07-09-2022 Patient encounter procedure ATM [facility]-C Floridalma Kavon [employer] Work Phone: [facility] Start: 07-05-2022 Non-patient / Non-visit ATM [facility]IC-C Naheed Jacobson [employer]IC Work Phone: [facility] Start: 07-05-2022 End: 07-05-2022 ambulatory ATM MECHANIC-Patricia Jacobson [employer] ME[employer]IC Work Phone: [facility] Work Phone: Start: 07-05-2022 End: 07-05-2022 Patient encounter procedure ATM ME[employer]IC-C Floridalma Jacobson [employer] Work Phone: [facility] Start: 06-29-2022 End: 06-29-2022 Patient encounter procedure ATM MECHANIC-Patricia Jacobson [employer] ME[employer]IC Work Phone: [facility] Start: 06-18-2022 End: 06-18-2022 Patient encounter procedure ATM MECHANIC-Patricia Jacobson [employer] ME[employer]IC Work Phone: [facility] Start: 06-15-2022 Non-patient / Non-visit ATM ME[employer]IC-C Naheed Jacobson [employer] Work Phone: [facility] Start: 04-16-2022 Non-patient / Non-visit ATM [employer]IC-C Naheed Jacobson ATM ME[employer]IC Work Phone: [facility] Start: 04-16-2022 End: 04-16-2022 Patient encounter procedure ATM MECHANIC-Patricia Jacobson [employer] Work Phone: [facility] Start: 07-20-2021 End: 07-21-2021 ambulatory PRISCILLA CHAVES MD Facility:[facility] Start: 07-09-2021 End: 07-09-2021 ambulatory MARTINA WALLER MD Facility:[facility] Start: 03-19-2021 End: 03-19-[address] BETSY PEREZ MD Facility:[facility] Procedures Date Procedure Procedure Detail Performing Clinician Start: 07-05-2022 Radionuclide imaging of perfusion of myocardium under exercise stress LEVI Jacobson [employer] Work Phone: Plan of Treatment Date Care Activity Detail [facility]: Payers Date Payer Category Payer Medicare [id number] 2024 Unknown [id number] 2024 Self-pay [id number] 2021 Unknown [id number] 2021 Unknown [id number] 2004 Unknown [id number] 1959 Unknown [id number] 2.16.8 [id number] 1959 Unknown [id number] 2.16.8 40.1.614244.3.579.2.651 1959 Unknown [id number] 2.16.8 40.1.664613.3.579.2.651 Private Health Insurance [facility] [id number] Private Health Insurance [facility] [id number] [facility] [id number] Unknown [id number] 2.16.8 40.1.403628.3.579.2.462 Unknown [id number] 2.16.8 40.1.128626.3.579.2.462 Unknown [id number] 2.16.8 40.1.857876.3.579.2.462 Unknown [id number] 2.16.8 40.1.342984.3.579.2.462 Unknown [id number] 2.16.8 40.1.551559.3.579.2.462 Unknown [id number] 2.16.8 40.1.532056.3.579.2.462 Unknown [id number] 2.16.8 40.1.489473.3.579.2.462 Unknown [id number] 2.16.8 40.1.261223.3.579.2.462 Unknown [id number] 2.16.8 40.1.769820.3.579.2.462 Unknown [id number] 2.16.8 40.1.047156.3.579.2.462 Unknown [id number] 2.16.8 40.1.314782.3.579.2.462 Unknown [id number] 2.16.8 40.1.566400.3.579.2.462 Unknown [id number] 2.16.8 40.1.305540.3.579.2.462 Unknown [id number] 2.16.8 40.1.150309.3.579.2.462 Unknown [id number] 2.16.8 40.1.657886.3.579.2.462 Unknown [id number] 2.16.8 40.1.688744.3.579.2.462 Unknown [id number] 2.16.8 40.1.200201.3.579.2.462 Unknown [id number] 2.16.8 40.1.285244.3.579.2.462 Unknown [id number] 2.16.8 40.1.824074.3.579.2.462 Unknown [id number] 2.16.8 40.1.301850.3.579.2.462 Social History Date Type Detail Facility Start: 06-29-2022 End: 07-29-2022 Tobacco smoking status NHIS Unknown if ever smoked [facility] Work Phone: Start: 1960 Sex Assigned At Male [facility] Work Phone: Clinical Note 06-11-2024 Note Date & Type Note Facility 06-11-2024 Note [facility] Medical Records Department [address] [place] [address] History Physical Exam 06/11/24 1112 MR#: [id number] Acct: [id number] Name: COLT HART Rep #: [id number] : 1960 63 From: Joaquin Farfan MD PCP: Dr. Vick Washington MD Status:[facility] Location: [place] [address] History and Physical Date of Admission: 06/11/24 Date of Service: 05/22/24 MR#: [id number] Acct: [id number] Name: COLT HART Rep #: [id number] : 1960 Provider: Dr. Joaquin Farfan MD Age/Sex: 63/M Location: [facility] Status: Signed Intake Vital Signs 04/20/2409:16 05/22/2408:05 Height 6 ft 1 in 6 ft 1 in Weight: 281 lb 4 oz BMI 37.0 BP 125/84 H Blood Pressure Location Rt brachial Position Sitting Respiration 18 Pulse 63 Pulse Source Monitor Temp 97.4 F L Temp Source Temporal Pulse Oximetry (%) 98 Oxygen Delivery Method room air Intake Visit Reasons: Hernia Chief Complaint: hernia Is patient in pain?: No Allergies No Known Allergies Allergy (Verified 05/22/24 08:06) Medications ???Medication ???Instructions ???Recorded ???Confirmed ???Type rivaroxaban 20 mg tablet 20 mg PO DAILY 09/08/20 05/22/24 History multivitamin 1 tab PO DAILY 04/13/24 05/22/24 History PFSH Medical History (Updated 05/22/24 @ 17:[address] Joaquin Farfan MD) Hernia Wears glasses Pulmonary embolism DVT (deep venous thrombosis) Non-smoker History of edema BiPAP (biphasic positive airway pressure) dependence Sleep apnea History of stress test History of echocardiogram Cardiology follow-up encounter MARISOL treated with BiPAP Dyspnea on exertion MARISOL (obstructive sleep apnea) Premature ventricular contraction Pulmonary embolism and infarction Hx of blood clots Cyst Epidermoid cyst of skin of chest Sleep apnea Surgical History Hx of colonoscopy History of incision and drainage Family History Father Cancer Lung Social History household members: spouse current occupational status: employed Smoking Status: Never smoker second hand exposure: No alcohol intake: never substance use type: does not use caffeine: Yes HPI HPI HPI: Patient is a 63-year-old male who presents for evaluation of an umbilical hernia. He is known to me from a colonoscopy completed early last month as part of our open access program. I noted his hernia incidentally during evaluation for this colonoscopy and recommended further evaluation. 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 He shares that there has been no real pain from his hernia but expresses increased awareness of its existence and potentially more discomfort because of an awareness. He denies any new health updates. He does share that he is actively trying to lose weight and has taken up intermittent fasting as well as continued exercising by riding mountain bikes. Patient denies any history of staph infections. Mr. Hart denies any prior abdominal surgical history. ROS General General: Yes weight change and fatigue; No appetite, colon cancer, breast cancer or weakness HEENT HEENT: No difficulty swallowing, eye injury, eye surgery, swollen glands or hoarseness Endo Endocrine: No thyroid disease, diabetes mellitus, thyroid cancer, Hair loss, heat intolerance or cold intolerance Skin Skin: No rash or changing moles Cardio Cardiovascular: No murmur, pacemaker, heart disease, atrial fibrillation, high blood pressure, heart attack, heart stent, palpitations, shortness of breat with exertion or chest pain Psych Psychiatric: No depression, anxiety or hearing voices Resp Respiratory: No shortness of breath, Yes sleep apnea, No cough, No COPD, No asthma, No emphysema and No wheezing Gastro Gastrointestinal: Yes abdominal pain, No nausea or vomiting, No diarrhea, No constipation, No blood in stool, No acid reflux, No hemorrhoids, No ulcers, No gallbladder problem and No black,tarry stools Alex Hematologic: Yes blood thinners, No blood disorders, No bleeding, No anemia and Yes blood clots Additional Details: xarelto Neuro Neurologic: No numbness, No tingling and No weakness Exam Const General: cooperative, comfortable and no acute distress Orientation: alert, awake and oriented x3 Resp Ef (more content not included)... [facility] Clinical Note 04-20-2024 Note Date & Type Note Facility 04-20-2024 Note [facility] Medical Records Department [address] [place] [address] History Physical Exam 04/20/24 1016 MR#: [id number] Acct: [id number] Name: COLT HART Rep #: [id number] : 1960 63 From: Joaquin Farfan MD PCP: Dr. Vick Washington MD Status:[facility] Location: [place] [address] HPI - General General Date of Service: 04/20/24 Chief Complaint: Open access colonoscopy HPI Narrative COLT HART, is a 63 M who presents screening colonoscopy. He confirms his preappointment questionnaire that he has not experienced any change in her bowel habits-and particularly denies any notice of blood. He also denies any family history of GI illness to include diverticulitis, inflammatory bowel disease, or colon cancer. Lastly he confirms that his prep was completed successfully and that his output is now clear. Specific to his health history, Mr. Hart confirms that he has held his anticoagulation with Xarelto for 1 week prior to today's procedure. [facility] Medical History Wears glasses Pulmonary embolism DVT (deep venous thrombosis) Non-smoker History of edema BiPAP (biphasic positive airway pressure) dependence Sleep apnea History of stress test History of echocardiogram Cardiology follow-up encounter MARISOL treated with BiPAP Dyspnea on exertion MARISOL (obstructive sleep apnea) Premature ventricular contraction Pulmonary embolism and infarction Hx of blood clots Cyst Epidermoid cyst of skin of chest Sleep apnea Home Medications ???Medication ???Instructions ???Recorded ???Last Taken ???Type rivaroxaban 20 mg tablet 20 mg PO DAILY 09/08/20 04/14/24 History multivitamin 1 tab PO DAILY 04/13/24 04/13/24 History Allergy/AdvReac Type Severity Reaction Status Date / Time No Known Allergies Allergy Verified 04/20/24 09:15 Family History Father Cancer Lung Surgical History Hx of colonoscopy History of incision and drainage Social History household members: spouse current occupational status: employed Smoking Status: Never smoker second hand exposure: No alcohol intake: never substance use type: does not use caffeine: Yes Past Medical/Surgical History Planned Operation Planned Operative Procedure(s): CSCOPE Previous Hospitalizations/Surgeries HX Hospitalizations: No Any Problems With Anesthesia: No You/Your Family Experience Fever (Hyperthermia) With Anes: No Cholinesterase deficiency: No Cardiovascular Hx of Irregular Heartbeat and/or Afib: No Hx Heart Attack: No Hx Congestive Heart Failure: No Hx Rheumatic Fever: No Hx Hypertension: No Hx Pacemaker: No Respiratory HX of Shortness of Breath: No Hx Chronic Obstructive Pulmonary Disease (COPD): No Hx Asthma: No Hx Emphysema: No Hx Sleep Apnea: Yes CPAP: No BIPAP: Yes Hx Respiratory Tract Infection/Cold (presently): No Do You Snore Loudly (louder than talking or can be heard): No Do You Often Feel Tired/ Fatigued/ Sleepy Dring Daytime?: No Has Anyone Observed You Stop Breathing During Sleep?: No Result (for STOP score): Positive Smoking Status: Never smoker Gastrointestinal Hx Ulcer: No Neurological Hx Multiple Sclerosis: No Hx Parkinson's Disease: No Hx Head/Neck Injury: No Hx Headaches: No Hx Back Injury/Pain: No Does patient have nerve stimulator: No Blood Disorder Hx Hepatitis: No Hx Anemia: No Reproduction : No Musculoskeletal Hx Arthritis: No Hx Gout: No Endocrine Hx Diabetes: No Thyroid Disease: No Psycho/Social Hx Anxiety: No Hx Depression: No Hx Dementia: No Miscellaneous Hx Cancer: No Recent Exposure to Contagious Disease: No Allergies No Known Allergies Allergy (Verified 04/20/24 09:15) Discharge Is Pt Admitted From a [facility], or a Detention: No After D/C, Where Do you Plan to Go: Return Home Vital Signs Vital Signs Vital Signs: 04/20/24 09:16 04/20/24 09:16 04/20/24 09:42 Temperature 96.5 F L 96.5 F L Temperature Source Temporal Pulse Rate 76 76 Respiratory Rate 16 16 Respiratory Pattern Normal Blood Pressure 118/87 H 118/87 H Blood Pressure Mean 97 Blood Pressure Source Monitor Blood Pressure Position Sitting Blood Pressure Location Right Arm Pulse Ox 95 95 Oxygen Delivery Method Room Air Weight Weight: 267 lb 10.259 oz Body Mass Index (BMI) 35.3 Physical Exam Const alert, oriented x3 and no apparent distress General Appearance: cooperative and comfortable Resp normal respiratory effort GI GI Narrative: No scars, obese, soft, nondistended, nontender to palpation, roughly 1.5 cm u (more content not included)... [facility] Clinical Note 03-19-2021 Note Date & Type Note Facility 03-19-2021 Note PROCEDURE: DIGIT OF HAND RIGHT 3RD, 03/19/2021 11:11 AM EDT CLINICAL INDICATIONS: Laceration COMPARISON: None TECHNIQUE: Right third digit 3 views FINDINGS: Soft tissue swelling and 0.2 cm linear opaque metallic soft tissue foreign body overlies the dorsal aspect of the right third proximal phalanx level. The bones are normal in density. Fracture or bone destruction is not evident. Joint spaces preserved. IMPRESSION: 1. Soft tissue injury, swelling, 0.2 cm metallic linear soft tissue foreign body overlying dorsal third proximal phalanx level. 2. No acute osseous pathology [facility] Evaluation note Note Date & Type Note Facility Evaluation note Diagnosis Onset Date MARISOL (obstructive sleep apnea) acute Palpitations acute Paroxysmal ventricular tachycardia acute Premature ventricular contraction acute Pulmonary embolism and infarction acute BMI 36.0-36.9,adult acute MARISOL (obstructive sleep apnea) acute Paroxysmal ventricular tachycardia acute [facility] Work Phone: Evaluation note Note Date & Type Note Facility Evaluation note Diagnosis Onset Date MARISOL (obstructive sleep apnea) acute Palpitations acute Paroxysmal ventricular tachycardia acute Premature ventricular contraction acute Pulmonary embolism and infarction acute BMI 36.0-36.9,adult acute MARISOL (obstructive sleep apnea) acute Paroxysmal ventricular tachycardia acute Dyspnea on exertion acute MARISOL (obstructive sleep apnea) acute Palpitations acute Paroxysmal ventricular tachycardia acute Premature ventricular contraction acute Pulmonary embolism and infarction acute [facility] Work Phone: Summary Purpose Family History No Family History Records Found Relationship Condition Age at Onset Recorded Date/T mikaela father Malignant neoplasm Unknown Advance Directives No Advanced Directives Records FoundNo Advanced Directives Records FoundNo Advanced Directives Records FoundNo Advanced Directives Records Found Chief Complaint and Reason for Visit Chief Complaint Ventricular prematur e depolarization Amb Documentation Palpitations Obstructive sleep apnea PVT PVT Reason for Visit MARISOL (obstructive sle ep apnea) Palpitations Paroxysmal ventricular tachycardia Premature ventricular contraction Pulmonary embolism and infarction BMI 36.0-36.9,adult MARISOL (obstructive sleep apnea) Paroxysmal ventricular tachycardia Chief Complaint Ventricular prematur e depolarization Amb Documentation Palpitations Obstructive sleep apnea PVT PVT MARISOL Reason for Visit MARISOL (obstructive sle ep apnea) Palpitations Paroxysmal ventricular tachycardia Premature ventricular contraction Pulmonary embolism and infarction BMI 36.0-36.9,adult MARISOL (obstructive sleep apnea) Paroxysmal ventricular tachycardia Chief Complaint Ventricular prematur e depolarization Amb Documentation Palpitations Obstructive sleep apnea PVT PVT MARISOL MARISOL; BILEVEL BRINGING MASK; *INVENTORY TAGGED 6 wk fu Reason for Visit MARISOL (obstructive sle ep apnea) Palpitations Paroxysmal ventricular tachycardia Premature ventricular contraction Pulmonary embolism and infarction BMI 36.0-36.9,adult MARISOL (obstructive sleep apnea) Paroxysmal ventricular tachycardia Dyspnea on exertion MARISOL (obstructive sleep apnea) Palpitations Paroxysmal ventricular tachycardia Premature ventricular contraction Pulmonary embolism and infarction Additional Source Comments (unrecognized sect ion and content) No Status Records FoundNo Status Records FoundNo Status Records FoundNo Status Records Found INFORMATION SOURCE (unrecogn ized section and content) DATE CREATED AUTHOR 06/01/2019 [facility] DATE CREATED AUTHOR AUTHOR'S ORGANIZ ATION 08/05/2021 [facility] DATE CREATED AUTHOR AUTHOR'S ORGANIZ ATION 04/08/2023 [facility] DATE CREATED AUTHOR AUTHOR'S ORGANIZ ATION 12/06/2024 [facility] Goals (unrecognized section and content) Goals may be documented in a n alternate sectionGoals may be documented in an alternate sectionGoals may be documented in an alternate section FOR RECORDS PERTAINING TO PATIENTS WHO ARE OR HAVE BEEN ENROLLED IN A CHEMICAL DEPENDENCY/SUBSTANCEABUSE PROGRAM, SOME INFORMATION MAY BE OMITTED. This clinical summary was aggregated from multiple sources. Caution should be exercised in using it in the provision of clinical care. This summary normalizes information from multiple sources, and as a consequence, information in this document may materially change the coding, format and clinical context of patient data. In addition, data may be omitted in some cases. CLINICAL DECISIONS SHOULD BE BASED ON THE PRIMARY CLINICAL RECORDS. [facility]. provides no warranty or guarantee of the accuracy or completeness of information in this document.
[2025-03-30 07:57] LABS: Hematocrit 43.3 % (40-54); Hemoglobin 14.5 g/dL (13.0-16.5); Immature Granulocytes Count 0.020 X10^3/uL (0.0-0.0); Mean Corp Hgb Conc 33.5 g/dL (32-36); Mean Corpuscular Volume 91.4 fL (80-94); Mean Platelet Vol. 9.6 fl (6.2-12.0); NRBC Flagged by Analyzer 0 % (0-5); Platelet Count 280 K/mm3 (150-450); RBC Distribution Width CV 12.3 % (11.6-14.6); RBC Distribution Width SD 41.1 fl (35.1-43.9); Red Blood Count 4.74 M/mm3 (4.6-6.2); White Blood Count 5.9 K/mm3 (4.4-11.0)
[2025-03-30 08:40] LABS: AST(SGOT) 25 U/L (<=37); Alanine Aminotransfer ALT/SGPT 26 U/L (<=46); Albumin, Serum 4.1 g/dL (3.4-4.8); Alkaline Phosphatase 75 U/L (40-129); Anion Gap 11 (5-15); BUN 21 mg/dL (4-19); BUN/Creat Ratio 17.1 RATIO (10-20); Calcium,Total 9.3 mg/dL (7.6-11.0); Carbon Dioxide 21.5 mmol/L (21.0-32.0); Chloride 107 mmol/L (98-108); Cholesterol 167 mg/dL (<=200); Globulin 3.2 g/dL (2.2-4.2); Glucose 102 mg/dL (70-99); Low Density Lipoprotein Calc. 105 mg/dL; Potassium 4.2 mmol/L (3.3-5.1); Triglycerides 125 mg/dL; Very Low Density Lipoprotein 25 mg/dL (5-40); cholesterol:hdl ratio screen 4.47
[2025-03-30 08:41] LABS: PSA,Total - Annual Screen 0.64 ng/mL (0.02-4.00); Vitamin D,25 Hydroxy 37.8 ng/mL (30-100)
== END | disposition home or self-care (01) ==
LOC: LAB 07:09
PROVIDERS: PCP Family Medicine; Referring Provider Family Medicine; Visit Provider Family Medicine
DX: Z12.5 Encounter for screening for malignant neoplasm of prostate (principal); R53.83 Other fatigue; Z13.220 Encounter for screening for lipoid disorders
CPT/HCPCS: 80053; 80061; 82306; 84153; 84443; 85025; G0103

== ENCOUNTER → 2025-06-28 | Outpatient (CLI) | payer MEDICARE, BC, SELFPAY | END | disposition home or self-care (01) | LOC: LAB 09:22 | PROVIDERS: PCP Family Medicine; Referring Provider Family Medicine; Visit Provider Family Medicine | DX: Z00.00 Encounter for general adult medical examination without abnormal findings (principal) | CPT/HCPCS: 36415; 84403 ==

== ENCOUNTER → 2025-07-10 | Outpatient (CLI) | payer MEDICARE, BC, SELFPAY ==
--- OUTSIDE RECORDS SUMMARY | 2025-07-10 09:45 | XMS RPT_ITS | CCD ---
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 on 03-30-2025 GFR/1.73 sq M.predicted among non-blacks MDRD (S/P/Bld) [Vol rate/Area] 65 mL/min/{1.73_m2} >60 [facility] Comment on above: mL/min/1.73m2 CKD-EP I Creatinine Equation (2020) Hematocrit Auto (Bld) [Volum e fraction]Ordered By: Vick Washington on 03-30-2025 Hematocrit (Bld) [Volume fraction] 43.3 % 40-54 [facility] Hemoglobin measurementOrdere d By: Vick Washington on 03-30-2025 Hemoglobin (Bld) [Mass/Vol] 14.5 g/dL 13.0-16.5 [facility] Immature granulocytes/100 WB C Auto (Bld)Ordered By: Vick Washington on 03-30-2025 Immature granulocytes/100 WBC (Bld) 0.300 % 0.0-0.9 [facility] Comment on above: IG% - Immature Granu locytes (promyelocytes, myelocytes and metamyelocytes) > 1% indicates that a LEFT SHIFT is Present. LDL calc ser/plasOrdered By: Vick Washington on 03-30-2025 Cholesterol in LDL [Mass/Vol] 105 mg/dL [facility] Comment on above: Qvnzxywzxn=986-902 m g/dL & Higher Otkn=188 mg/dL or greater Laboratory - Chemistry and C hemistry - challengeOrdered By: Vick Washington on 03-30-2025 AST [Catalytic activity/Vol] 25 U/L <38 [facility] Lipid Profileon 03-30-2025 CHOL:HDL 4.47 Normal [facility] Comment on above: Order Comment: Order Date: 03/21/25Order Info: [id number] - CMPOrder Info: [id number] - LIPIDOrder Info: [id number] - TSHOrder Info: [id number] - PSA Performed By: #### L 500.4100, L501.9910, L501.9520, L500.4050, L100.0100 ####[facility] [address] [place], [place], [address] Cholesterol [Mass/Vol] 167 mg/dL Normal <=200 [facility] Comment on above: Order Comment: Order Date: 03/21/25Order Info: [id number] - CMPOrder Info: [id number] - LIPIDOrder Info: [id number] - TSHOrder Info: [id number] - PSA Result Comment: Chol esterol level, Desirable <200 mg/dL Borderline high cholesterol 200-239 mg/dL High cholesterol >=240 mg/dL Recommendations of the NCEP Adult Treatment Panel for the following risk-cutoff thresholds for the [place] population. Performed By: #### L 500.4100, L501.9910, L501.9520, L500.4050, L100.0100 ####[facility] [address] [place], [address] Cholesterol in HDL [Mass/Vol] 37 mg/dL Low [facility] Comment on above: Order Comment: Order Date: 03/21/25Order Info: 0786- - CMPOrder Info: [id number] - LIPIDOrder Info: [id number] - TSHOrder Info: [id number] - PSA Result Comment: Bryanna onal Cholesterol Education Program (NCEP) guidelines: <40 mg/dL: Low HDL-cholesterol (major risk factor for CHD) >= 60 mg/dL: High HDL-cholesterol (negative risk factor for CHD) HDL-cholesterol is affected by a number of factors, e.g. smoking, exercise, hormones, sex and age. Performed By: #### L 500.4100, L501.9910, L501.9520, L500.4050, L100.0100 ####[facility] [address] [place], [address] Cholesterol in LDL [Mass/Vol] 105 mg/dL Normal [facility] Comment on above: Order Comment: Order Date: 03/21/25Order Info: 0786 - CMPOrder Info: [id number] - LIPIDOrder Info: 3 - TSHOrder Info: [id number] - PSA Result Comment: Bord nrrgvs=555-325 mg/dL Higher Lnuj=587 mg/dL or greater Performed By: #### L 500.4100, L501.9910, L501.9520, L500.4050, L100.0100 ####[facility] [address] [place], [address] Cholesterol in VLDL [Mass/Vol] 25 mg/dL Normal 5-40 [facility] Comment on above: Order Comment: Order Date: 03/21/25Order Info: [id number] - CMPOrder Info: [id number] - LIPIDOrder Info: 3 - TSHOrder Info: [id number] - PSA Performed By: #### L 500.4100, L501.9910, L501.9520, L500.4050, L100.0100 ####[facility] [address] [place], [place], [address] Triglyceride [Mass/Vol] 125 mg/dL Normal [facility] Comment on above: Order Comment: Order Date: 03/21/25Order Info: [id number] - CMPOrder Info: [id number] - LIPIDOrder Info: [id number] - TSHOrder Info: [id number] - PSA Result Comment: The drugs N-Acetylcysteine and Metamizole may falsely depress this assay. Normal range: <150 mg/dL Borderline High: 150-199 mg/dL High: 200-499 mg/dL Very High: >500 mg/dL Performed By: #### L 500.4100, L501.9910, L501.9520, L500.4050, L100.0100 ####[facility] [address] [place], [place], [id number] MCV (mean corpuscular volume ) determinationOrdered By: Vick Washington on 03-30-2025 MCV (RBC) [Entitic vol] 91.4 fL 80-94 [facility] Mean corpuscular hemoglobin (MCH) determinationOrdered By: Vick Washington on 03-30-2025 MCH (RBC) [Entitic mass] 30.6 pg 27.0-32.0 [facility] Mean corpuscular hemoglobin concentration (MCHC) determinationOrdered By: Vick Washington on 03-30-2025 MCHC (RBC) [Mass/Vol] 33.5 g/dL 32-36 [facility] Mean platelet volume determi nationOrdered By: Vick Washington on 03-30-2025 Platelet mean volume (Bld) [Entitic vol] 9.6 fL 6.2-12.0 [facility] Monocyte percentageOrdered B y: Vick Washington on 03-30-2025 Monocytes/100 WBC (Bld) 9.0 % 0-10 [facility] Neutrophil percentageOrdered By: Vick Washington on 03-30-2025 Neutrophils/100 WBC (Bld) 61.4 % 47-70 [facility] Nucleated red blood cell per centageOrdered By: Vick Washington on 03-30-2025 Nucleated RBC/100 WBC (Bld) [Ratio] 0 % 0-5 [facility] PSA,Total - Annual Screenon 03-30-2025 PSA,TOT SCREEN 0.64 ng/mL Normal 0.02-4.00 [facility] Comment on above: Order Comment: Order Date: 03/21/25Order Info: [id number] - CMPOrder Info: [id number] - LIPIDOrder Info: [id number] - TSHOrder Info: [id number] - PSA Result Comment: This test was performed using the [employer] tPSA method. Measured values of a patient??sample can vary depending on the testing procedure used. PSA values determined on patient samples by different testing procedures cannot be used interchangeably. If there is a change in PSA assays while monitoring therapy, sequential testing should be performed to confirm baseline values. Performed By: #### L 500.4100, L501.9910, L501.9520, L500.4050, L100.0100 ####[facility] [address] [place], [address] Platelet countOrdered By: Kenney Washington on 03-30-2025 Platelets (Bld) [#/Vol] 280 10*3/uL 150-450 [facility] Potassium measurement (mass/ volume)Ordered By: Vick Washington on 03-30-2025 Potassium (Unsp spec) [Mass/Vol] 4.2 mmol/L 3.3-5.1 [facility] RBC Auto (Bld) [#/Vol]Ordere d By: Vick Washington on 03-30-2025 RBC (Bld) [#/Vol] 4.74 10*6/uL 4.6-6.2 [facility] Screening total cholesterol/ high density lipoprotein (HDL) cholesterol ratioOrdered By: Vick Washington on 03-30-2025 Cholesterol.total/Chol esterol in HDL [Mass ratio] 4.47 {ratio} [facility] Serum creatinine measurement (mass/volume)Ordered By: Vick Washington on 03-30-2025 Creatinine [Mass/Vol] 1.24 mg/dL High 0.70-1.20 [facility] Serum globulin measurementOr dered By: Vick Washington on 03-30-2025 Globulin (S) [Mass/Vol] 3.2 g/dL 2.2-4.2 [facility] Serum glucose measurement (m ass/volume)Ordered By: Vick Washington on 03-30-2025 Glucose [Mass/Vol] 102 mg/dL High 70-99 [facility] Serum or plasma alanine chery otransferase (ALT) measurementOrdered By: Vick Washington on 03-30-2025 ALT [Catalytic activity/Vol] 26 U/L <47 [facility] Serum or plasma albumin brown urement (mass/volume)Ordered By: Vick Washington on 03-30-2025 Albumin [Mass/Vol] 4.1 g/dL 3.4-4.8 [facility] Serum or plasma albumin/glob ulin mass ratioOrdered By: Vick Washington on 03-30-2025 Albumin/Globulin [Mass ratio] 1.3 {ratio} 0.9-2.4 [facility] Serum or plasma alkaline christopher sphatase measurementOrdered By: Vick Washington on 03-30-2025 ALP [Catalytic activity/Vol] 75 U/L 40-129 [facility] Serum or plasma calcium brown urement (mass/volume)Ordered By: Vick Washington on 03-30-2025 Calcium [Mass/Vol] 9.3 mg/dL 7.6-11.0 [facility] Serum or plasma cholesterol in HDL measurement (mass/volume)Ordered By: Vick Washington on 03-30-2025 Cholesterol in HDL [Mass/Vol] 37 mg/dL Low >40 [facility] Comment on above: National Cholesterol Education Program (NCEP) guidelines:<40 mg/dL: Low HDL-cholesterol (major risk factor for CHD)>= 60 mg/dL: High HDL-cholesterol (negative risk factor for CHD)HDL-cholesterol is affected by a number of factors, e.g. smoking, exercise, hormones, sex and age. Serum or plasma cholesterol measurement (mass/volume)Ordered By: Vick Washington on 03-30-2025 Cholesterol [Mass/Vol] 167 mg/dL <201 [facility] Comment on above: Cholesterol level, D esirable <200 mg/dLBorderline high cholesterol 200-239 mg/dLHigh cholesterol >=240 mg/dLRecommendations of the NCEP Adult Treatment Panel for the following risk-cutoff thresholds for the [place] population. Serum or plasma urea nitroge n measurement (mass/volume)Ordered By: Vick Washington on 03-30-2025 Urea nitrogen [Mass/Vol] 21 mg/dL High 4-19 [facility] Sodium levelOrdered By: Cheyanne Washington on 03-30-2025 Sodium [Moles/Vol] 140 mmol/L 133-145 [facility] TSH DL <= 0.005 mIU/L QnOrde red By: Vick Washington on 03-30-2025 TSH Qn 2.020 uIU/mL 0.300-4.200 [facility] Thyroid Stim Hormone (TSH)on 03-30-2025 TSH 2.020 uIU/mL Normal 0.300-4.200 [facility] Comment on above: Order Comment: Order Date: 03/21/25Order Info: [id number] - CMPOrder Info: [id number] - LIPIDOrder Info: [id number] - TSHOrder Info: [id number] - PSA Performed By: #### L 500.4100, L501.9910, L501.9520, L500.4050, L100.0100 ####[facility] [address] [place], [address] Total proteinOrdered By: Albina Washington on 03-30-2025 Protein [Mass/Vol] 7.2 g/dL 5.9-8.4 [facility] Triglycerides measurementOrd ered By: Vick Washington on 03-30-2025 Triglyceride [Mass/Vol] 125 mg/dL <199 [facility] Comment on above: The drugs N-Acetylcy steine and Metamizole may falsely depress this assay. Normal range: <150 mg/dLBorderline High: 150-199 mg/dLHigh: 200-499 mg/dLVery High: >500 mg/dL Vitamin D,25 Hydroxyon 03-30 Vitamin D 25-OH 37.8 ng/mL Normal 30-100 [facility] Comment on above: Order Comment: Order Date: 03/21/25Order Info: [id number] - CMPOrder Info: [id number] - LIPIDOrder Info: [id number] - TSHOrder Info: [id number] - PSA Result Comment: Tiana min D Status Deficiency: <20 ng/mL (50nmol/L) Insufficiency: 20-30 ng/mL (50-75 nmol/L) Sufficiency: 30-100 ng/mL (75-250 nmol/L) Toxicity: >100 ng/mL (>250 nmol/L) Performed By: #### L 506.1001 ####[facility] [address] [place], [address] White blood cell (WBC) count Ordered By: Vick Washington on 03-30-2025 WBC (Bld) [#/Vol] 5.9 10*3/uL 4.4-11.0 [facility] Pulmonary Visit Reporton Pulmonary Visit Report [facility] [place] [address] [place] [address] OFFICE VISIT Date of Service: 12/04/24 MR#: [id number] Acct: [id number] Name: BERNARD HART Rep #: [id number] : 1960 Provider: LEVI Bruno Age/Sex: 64/M Location: [facility] [place] Status: Signed Assessment and Plan Assessment and [...] report that recently he noticed that his "water chamber" was leaking, explaining the leaks that were [...] M FU Chief Complaint: 5 wk f/u [employer] Supervisor Required: No DME Vendor: [employer] Accompanied by: Self Allergies No Known Allergies Allergy (Verified 12/04/24 07:47) Medications ???Medication ???Instructions ???Recorded ???Confirmed ???Type multivitamin 1 tab PO DAILY 04/13/24 12/04/24 H istory Have you fallen in the past year?: No PFSH Medical History (Updated 12/04/24 @ 08:08 by Renay Bruno [employer], [employer]-[facility]) Umbilical hernia without obstruction and without gangrene [...] nystagmus Ea (more content not included)... Normal [facility] MR/BMS.Mojgan 10-26-2024 MR/BMS.SELINA [facility] [address] [place], [place] [address] OFFICE VISIT Date of Service: 10/26/24 MR#: [id number] Acct: [id number] Name: BERNARD HART Rep #: [id number] : 1960 Provider: LINDA Toth Age/Sex: 64/M Location: [facility] [place] Status: Signed Intake Vital Signs 08/20/24 08:04 [...] not use caffeine: Yes HPI HPI HPI: BERNARD HART, is a 64 M who presents [...] I do (more content not included)... Normal [facility] AT III Func / Immunolon -2 AT3 AG, IMMUNOL 104 Normal 72-124 [facility] Comment on above: Order Comment: Test( s) 851919-Piimjtgjggal Antigenwas developed and its performance characteristicsdetermined by [employer]. It has not been cleared or approvedby the Food and Drug Administration. Performed By: #### L 4500.0100, L4500.8800, L3100.7250, L4500.2000, L3410.2000, L4500.5000, L3300.0450, L4500.8350, L3100.8408, L3100.5600, L3100.5800, L101.9900, L3100.7050, L3100.5450, L3100.7325, L3100.5700 ####[facility] [address] [place], [address] AT3 FUNCTIONAL 112 Normal 75-135 [facility] Comment on above: Order Comment: Test( s) 133643-Zusrhaxzbwjj Antigenwas developed and its performance characteristicsdetermined by [employer]. It has not been cleared or approvedby the Food and Drug Administration. Result Comment: Dire ct Xa inhibitor anticoagulants such as rivaroxaban, apixaban and edoxaban will lead to spuriously elevated antithrombin activity levels possibly masking a deficiency. Performed By: #### L 4500.0100, L4500.8800, L3100.7250, L4500.2000, L3410.2000, L4500.5000, L3300.0450, L4500.8350, L3100.8408, L3100.5600, L3100.5800, L101.9900, L3100.7050, L3100.5450, L3100.7325, L3100.5700 ####[facility] [address] [place], [place], [address] Anticardiolipin IgA,G,Mon ANTICARDIO IgA < 9 Normal 0-11 [facility] Comment on above: Order Comment: Test( s) 910085-Gzkuysjcuoth Antigenwas developed and its performance characteristicsdetermined by [employer]. It has not been cleared or approvedby the Food and Drug Administration. Result Comment: Nega tive: <12 Indeterminate: 12 - 20 Low-Med Positive: >20 - 80 High Positive: >80 Performed By: #### L 4500.0100, L4500.8800, L3100.7250, L4500.2000, L3410.2000, L4500.5000, L3300.0450, L4500.8350, L3100.8408, L3100.5600, L3100.5800, L101.9900, L3100.7050, L3100.5450, L3100.7325, L3100.5700 ####[facility] [address] [place], [place], [address] ANTICARDIO IgG < 9 Normal 0-14 [facility] Comment on above: Order Comment: Test( s) 070280-Ztnqsoccvxiu Antigenwas developed and its performance characteristicsdetermined by [employer]. It has not been cleared or approvedby the Food and Drug Administration. Result Comment: Nega tive: <15 Indeterminate: 15 - 20 Low-Med Positive: >20 - 80 High Positive: >80 Performed By: #### L 4500.0100, L4500.8800, L3100.7250, L4500.2000, L3410.2000, L4500.5000, L3300.0450, L4500.8350, L3100.8408, L3100.5600, L3100.5800, L101.9900, L3100.7050, L3100.5450, L3100.7325, L3100.5700 ####[facility] [address] [place], [address] Anticardio.IgM < 9 Normal 0-12 [facility] Comment on above: Order Comment: Test( s) 667152-Halzfmvxibii Antigenwas developed and its performance characteristicsdetermined by [employer]. It has not been cleared or approvedby the Food and Drug Administration. Result Comment: Nega tive: <13 Indeterminate: 13 - 20 Low-Med Positive: >20 - 80 High Positive: >80 Performed By: #### L 4500.0100, L4500.8800, L3100.7250, L4500.2000, L3410.2000, L4500.5000, L3300.0450, L4500.8350, L3100.8408, L3100.5600, L3100.5800, L101.9900, L3100.7050, L3100.5450, L3100.7325, L3100.5700 ####[facility] [address] [place], [place], [address] Beta-2 Glycoprot IgG, A, 10-08-2024 B2 GLYCO I IGA <9 Normal 0-25 [facility] Comment on above: Order Comment: Test( s) 500403-Cbhohojmaduy Antigenwas developed and its performance characteristicsdetermined by [employer]. It has not been cleared or approvedby [...] Thromb Haem 2006;4:295-306. Performed By: #### L 4500.0100, L4500.8800, L3100.7250, L4500.2000, L3410.2000, L4500.5000, L3300.0450, L4500.8350, L3100.8408, L3100.5600, L3100.5800, L101.9900, L3100.7050, L3100.5450, L3100.7325, L3100.5700 ####[facility] [address] [place], [place], [address] B2 GLYCO I IGG <9 Normal 0-20 [facility] Comment on above: Order Comment: Test( s) 417693-Gbietxlxmhma Antigenwas developed and its performance characteristicsdetermined by [employer]. It has not been cleared or approvedby [...] Thromb Haem 2006;4:295-306. Performed By: #### L 4500.0100, L4500.8800, L3100.7250, L4500.2000, L3410.2000, L4500.5000, L3300.0450, L4500.8350, L3100.8408, L3100.5600, L3100.5800, L101.9900, L3100.7050, L3100.5450, L3100.7325, L3100.5700 ####[facility] [address] [place], [place], [address] B2 GLYCO I IGM <9 Normal 0-32 [facility] Comment on above: Order Comment: Test( s) 189882-Jwuepfoctnew Antigenwas developed and its performance characteristicsdetermined by [employer]. It has not been cleared or approvedby [...] Thromb Haem 2006;4:295-306. Performed By: #### L 4500.0100, L4500.8800, L3100.7250, L4500.2000, L3410.2000, L4500.5000, L3300.0450, L4500.8350, L3100.8408, L3100.5600, L3100.5800, L101.9900, L3100.7050, L3100.5450, L3100.7325, L3100.5700 ####[facility] [address] [place], [place], [id number] Complement C3on 10-08-2024 COMP C3 142 mg/dL Normal 82-167 [facility] Comment on above: Order Comment: Test( s) 756988-Pbbyeqlurenm Antigenwas developed and its performance characteristicsdetermined by [employer]. It has not been cleared or approvedby the Food and Drug Administration. Performed By: #### L 4500.0100, L4500.8800, L3100.7250, L4500.2000, L3410.2000, L4500.5000, L3300.0450, L4500.8350, L3100.8408, L3100.5600, L3100.5800, L101.9900, L3100.7050, L3100.5450, L3100.7325, L3100.5700 ####[facility] [address] [place], [place], [address] Complement C4on 10-08-2024 COMPLEMENT, C4 32 mg/dL Normal 12-38 [facility] Comment on above: Order Comment: Test( s) 459038-Ltnpbzpscjxo Antigenwas developed and its performance characteristicsdetermined by [facility]. It has not been cleared or approvedby the Food and Drug Administration. Performed By: #### L 4500.0100, L4500.8800, L3100.7250, L4500.2000, L3410.2000, L4500.5000, L3300.0450, L4500.8350, L3100.8408, L3100.5600, L3100.5800, L101.9900, L3100.7050, L3100.5450, L3100.7325, L3100.5700 ####[facility] [address] [place], [place], [address] Complement CH50on 10-08-2024 COMPLEMENT,CH50 49 U/mL Normal >41 [facility] Comment on above: Order Comment: Test( s) 154398-Mmpbvrxxffgq Antigen was developed and its performance characteristics determined by [facility]. It has not been cleared or approved by the Food and Drug Administration. Result Comment: Age Male Female 1 - 30 days Not Estab. Not Estab. 31 days - 6 months >32 >20 7 months - 17 years >39 >39 >17 years >41 >41 NOTE: The adult (">17 years") reference interval range is used to flag abnormals on this report. If the patient is 17 years old or younger, use the table above to determine out of range values. Performed By: #### L 4500.0100, L4500.8800, L3100.7250, L4500.2000, L3410.2000, L4500.5000, L3300.0450, L4500.8350, L3100.8408, L3100.5600, L3100.5800, L101.9900, L3100.7050, L3100.5450, L3100.7325, L3100.5700 #### [facility] [address] [place], [address] Fact V Leiden Mutationon FACTOR V LEIDEN Comment Normal . [facility] Comment on above: Order Comment: Test( s) 267119-Julahnyzzzeh Antigen was developed and its performance characteristics determined by [employer]. It has not been cleared or approved by the Food and Drug Administration. Result Comment: Resu lt: c.1601G>A (p.Lay111Nve) - Not Detected This result is not associated with an increased risk for venous thromboembolism. See Additional Clinical Information and Comments. Additional Clinical Information: Venous thromboembolism is a multifactorial disease influenced by genetic, environmental, and circumstantial risk factors. The c.1601G>A (p. Zry981Eok) variant in the F5 gene, commonly referred [...] c.*97G>A variant and Factor V Leiden (PMID: 08803413). Additional risk factors include but are not [...] health care providers to discuss results at [phone] (5390). Test Details: Variant Analyzed: c.1601G>A (p. Cul983Itk), referred to as Factor V Leiden Methods/Limitations: [...] developed and its performance characteristics determined by [employer]. It has not been cleared or approved by the Food and Drug Administration. References: Gildardo S, Lanie TORRES, Donal R, Elvis WW, Juan R JH; [employer] Professional Practice and Guidelines Committee. Addendum: [employer] consensus statement on factor V Leiden mutation testing. Latanya Med. 2020Nov 21. doi: 10.1038/v56073-910-65852-l. PMID: 75169191. Sandra ALVARENGA. Factor V Leiden Thrombophilia. 1998January 30 (Updated 2017Sep 22). In: Aman MP, Gabby HH, Bettie RA, et al., editors. Jesusita(R) (Internet). [place] ([place]): [facility]; 3195-9431. Available from: https://www.ncbi.nlm.nih.gov/books/MGC8232/ Caleb Chahal, Lanie TORRES, Eddie X, Efe B, Pierre EB, Amber P, Davina CS; [employer] Laboratory Glass Calibrator Committee. Venous thromboembolism laboratory testing (factor V Leiden and factor II c.*97G>A), 2018 update: a technical standard of the [employer] ([employer]). Latanya Med. 2018 Aug;20(12):1366-6111. doi: 10.1038/v32103-840-4231-y. Epub 2017Jun 23. PMID: 38447038. Performed By: #### L 4500.0100, L4500.8800, L3100.7250, L4500.2000, L3410.2000, L4500.5000, L3300.0450, L4500.8350, L3100.8408, L3100.5600, L3100.5800, L101.9900, L3100.7050, L3100.5450, L3100.7325, L3100.5700 #### [facility] [address] [place], [place], [address] Reviewed By Comment Normal . [facility] Comment on above: Order Comment: Test( s) 077497-Ukdkeibzmils Antigen was developed and its performance characteristics determined by [employer]. It has not been cleared or approved by the Food and Drug Administration. Result Comment: Tech nical Component performed at [facility] RT Professional Component performed by: [employer] [facility] Luciano Reno, Ph.D., [facility] Director, Molecular Genetics [address] [place] [address] Performed By: #### L 4500.0100, L4500.8800, L3100.7250, L4500.2000, L3410.2000, L4500.5000, L3300.0450, L4500.8350, L3100.8408, L3100.5600, L3100.5800, L101.9900, L3100.7050, L3100.5450, L3100.7325, L3100.5700 #### [facility] [address] [place], [place], [id number] Factor II, DNA Analysison FACTOR II, DNA Comment Normal . [facility] Comment on above: Order Comment: Test( s) 958272-Clzkjaedevfw Antigen was developed and its performance characteristics determined by [employer]. It has not been cleared or approved [...] the F2 gene and a c.1601G>A (p. Maa843Bwf) variant in the F5 gene (commonly referred to as Factor V Leiden) have an approximately 20- fold increased risk for venous thromboembolism. Risks are likely to be even higher in more complex genotype combinations involving the F2 c.*97G>A variant and Factor V Leiden (PMID: 11241721). Additional risk factors include but are not [...] health care providers to discuss results at [phone] ([phone]). Test Details: Variant analyzed: c.*97G>A, previously referred to as [id number] Methods/Limitations: DNA analysis of the F2 gene [...] developed and its performance characteristics determined by [employer]. It has not been cleared or approved by the Food and Drug Administration. References: Gildardo S, Lanie TORRES, Donal R, Elvis WW, Juan R JH; ACMG Professional Practice and Guidelines Committee. Addendum: [employer] consensus statement on factor V Leiden mutation testing. Latanya Med. 2020Nov 21. doi: 10.1038/u01750-738-95611-a. PMID: 79619964. Sandra ALVARENGA. Prothrombin Thrombophilia. 2005Apr 12 [Updated 2020Oct 23]. In: Aman MP, Gabby HH, Bettie RA, et al., editors. Jesusita(R) [Internet]. [place] ([place]): [facility]; 1893-6742. Available from: https://www.ncbi.nlm.nih.gov/books/EEI8922/ Caleb S, Lnaie TORRES, Eddie X, Efe B, Pierre EB, Amber P, Davina CS; ACMG Laboratory Glass Calibrator Committee. Venous thromboembolism laboratory testing (factor V Leiden and factor II c.*97G>A), 2018 update: a technical standard of the [employer] and Genomics (ACMG). Latanya Med. 2018 Aug;20(12):4082-6399. doi: 10.1038/q44120-054-4576-i. Epub 2017Jun 23. PMID: 38791906. Performed By: #### L 4500.0100, L4500.8800, L3100.7250, L4500.2000, L3410.2000, L4500.5000, L3300.0450, L4500.8350, L3100.8408, L3100.5600, L3100.5800, L101.9900, L3100.7050, L3100.5450, L3100.7325, L3100.5700 #### [facility] [address] [place], [address] Factor VIII Activityon 10-08 FAC VIII ACT 126 Normal 56-140 [facility] Comment on above: Order Comment: Test( s) 192480-Badufckabeli Antigenwas developed and its performance characteristicsdetermined by [facility]. It has not been cleared or approvedby the Food and Drug Administration. Performed By: #### L 4500.0100, L4500.8800, L3100.7250, L4500.2000, L3410.2000, L4500.5000, L3300.0450, L4500.8350, L3100.8408, L3100.5600, L3100.5800, L101.9900, L3100.7050, L3100.5450, L3100.7325, L3100.5700 ####[facility] [address] [place], [place], [address] Lupus Anticoagulant Compon 0 10-08-2024 aPTT Coag (Bld) [Time] 36.9 s Normal 0.0-43.5 [facility] Comment on above: Order Comment: Test( s) 422447-Ddgqrozociea Antigen was developed and its performance characteristics determined by [employer]. It has not been cleared or approved by the Food and Drug Administration. Performed By: #### L 4500.0100, L4500.8800, L3100.7250, L4500.2000, L3410.2000, L4500.5000, L3300.0450, L4500.8350, L3100.8408, L3100.5600, L3100.5800, L101.9900, L3100.7050, L3100.5450, L3100.7325, L3100.5700 #### [facility] [address] [place], [place], [id number] DILUTE PT (dPT) 34.9 sec Normal 0.0-47.6 [facility] Comment on above: Order Comment: Test( s) 664006-Pgjlizyjbqfs Antigen was developed and its performance characteristics determined by [facility]. It has not been cleared or approved by the Food and Drug Administration. Performed By: #### L 4500.0100, L4500.8800, L3100.7250, L4500.2000, L3410.2000, L4500.5000, L3300.0450, L4500.8350, L3100.8408, L3100.5600, L3100.5800, L101.9900, L3100.7050, L3100.5450, L3100.7325, L3100.5700 #### [facility] [address] [place], [address] dPT Conf. Ratio 1.06 Ratio Normal 0.00-1.34 [facility] Comment on above: Order Comment: Test( s) 639258-Ebxoapvzaknm Antigen was developed and its performance characteristics determined by [facility]. It has not been cleared or approved by the Food and Drug Administration. Performed By: #### L 4500.0100, L4500.8800, L3100.7250, L4500.2000, L3410.2000, L4500.5000, L3300.0450, L4500.8350, L3100.8408, L3100.5600, L3100.5800, L101.9900, L3100.7050, L3100.5450, L3100.7325, L3100.5700 #### [facility] [address] [place], [address] DRVVT 36.4 sec Normal 0.0-47.0 [facility] Comment on above: Order Comment: Test( s) 016617-Hufqgjmtfltb Antigen was developed and its performance characteristics determined by [facility]. It has not been cleared or approved by the Food and Drug Administration. Performed By: #### L 4500.0100, L4500.8800, L3100.7250, L4500.2000, L3410.2000, L4500.5000, L3300.0450, L4500.8350, L3100.8408, L3100.5600, L3100.5800, L101.9900, L3100.7050, L3100.5450, L3100.7325, L3100.5700 #### [facility] [address] [place], [address] Interpretation Comment: Normal . [facility] Comment on above: Order Comment: Test( s) 854546-Ujnlfcvgnlsr Antigen was developed and its performance characteristics determined by [facility]. It has not been cleared or approved by the Food and Drug Administration. Result Comment: No l upus anticoagulant was detected. Performed By: #### L 4500.0100, L4500.8800, L3100.7250, L4500.2000, L3410.2000, L4500.5000, L3300.0450, L4500.8350, L3100.8408, L3100.5600, L3100.5800, L101.9900, L3100.7050, L3100.5450, L3100.7325, L3100.5700 #### [facility] [address] [place], [place], [address] THROMBIN TIME 20.1 sec Normal 0.0-23.0 [facility] Comment on above: Order Comment: Test( s) 969443-Fazluwschhzm Antigen was developed and its performance characteristics determined by [employer]. It has not been cleared or approved by the Food and Drug Administration. Performed By: #### L 4500.0100, L4500.8800, L3100.7250, L4500.2000, L3410.2000, L4500.5000, L3300.0450, L4500.8350, L3100.8408, L3100.5600, L3100.5800, L101.9900, L3100.7050, L3100.5450, L3100.7325, L3100.5700 #### [facility] [address] [place], [place], [address] Protein C, Functionalon 01-2 0 PROTEIN C,FUNC 139 Normal 73-180 [facility] Comment on above: Order Comment: Test( s) 436740-Jztmqigilcci Antigenwas developed and its performance characteristicsdetermined by [employer]. It has not been cleared or approvedby the Food and Drug Administration. Performed By: #### L 4500.0100, L4500.8800, L3100.7250, L4500.2000, L3410.2000, L4500.5000, L3300.0450, L4500.8350, L3100.8408, L3100.5600, L3100.5800, L101.9900, L3100.7050, L3100.5450, L3100.7325, L3100.5700 ####[facility] [address] [place], [address] Protein S Antigenon 10-08-19 25 PROTEIN S, FREE 102 Normal 61-136 [facility] Comment on above: Order Comment: Test( s) 829197-Vcdzkmkquoqo Antigenwas developed and its performance characteristicsdetermined by [facility]. It has not been cleared or approvedby the Food and Drug Administration. Performed By: #### L 4500.0100, L4500.8800, L3100.7250, L4500.2000, L3410.2000, L4500.5000, L3300.0450, L4500.8350, L3100.8408, L3100.5600, L3100.5800, L101.9900, L3100.7050, L3100.5450, L3100.7325, L3100.5700 ####[facility] [address] [place], [address] PROTEIN S,TOTAL 102 Normal 60-150 [facility] Comment on above: Order Comment: Test( s) 307530-Mglvbkxgxilo Antigenwas developed and its performance characteristicsdetermined by [facility]. It has not been cleared or approvedby the Food and Drug Administration. Result Comment: This test was developed and its performance characteristics determined by [facility]. It has not been cleared or approved by the Food and Drug Administration. Performed By: #### L 4500.0100, L4500.8800, L3100.7250, L4500.2000, L3410.2000, L4500.5000, L3300.0450, L4500.8350, L3100.8408, L3100.5600, L3100.5800, L101.9900, L3100.7050, L3100.5450, L3100.7325, L3100.5700 ####[facility] [address] [place], [address] Protein S, Functionalon 09-20 0 PROTEIN S, FUNC 91 Normal 63-140 [facility] Comment on above: Order Comment: Test( s) 319429-Wqmbdrhcsivp Antigenwas developed and its performance characteristicsdetermined by [employer]. It has not been cleared or approvedby the Food and Drug Administration. Result Comment: Prot ein S activity may be falsely increased (masking an abnormal, low result) in patients receiving direct Xa inhibitor (e.g., rivaroxaban, apixaban, edoxaban) or a direct thrombin inhibitor (e.g., dabigatran) anticoagulant treatment due to assay interference by these drugs. Performed By: #### L 4500.0100, L4500.8800, L3100.7250, L4500.2000, L3410.2000, L4500.5000, L3300.0450, L4500.8350, L3100.8408, L3100.5600, L3100.5800, L101.9900, L3100.7050, L3100.5450, L3100.7325, L3100.5700 ####[facility] [address] [place], [place], [address] Von Willebrand Factor Activi tyon 10-08-2024 vWF ACTIVITY 156 Normal 50-200 [facility] Comment on above: Order Comment: Test( s) 804164-Xkkgraiwlhuq Antigenwas developed and its performance characteristicsdetermined by [employer]. It has not been cleared or approvedby the Food and Drug Administration. Result Comment: Perf ormed at: [facility] - [facility] [id number] Director Public Service: Ana Martinez MD, Phone: [phone] Performed at: - [address] [id number] Director Public Service: Moses Gomez PhD, Phone: [phone] Performed at: [facility] [address] [id number] Director Public Service: Cedric Olson [facility], Phone: [phone] Performed By: #### L 4500.0100, L4500.8800, L3100.7250, L4500.2000, L3410.2000, L4500.5000, L3300.0450, L4500.8350, L3100.8408, L3100.5600, L3100.5800, L101.9900, L3100.7050, L3100.5450, L3100.7325, L3100.5700 ####[facility] [address] [place], [address] ALMITA w/ Reflex Mult Confirmon 10-01-2024 ALMITA,DIRECT Negative Normal Negative [facility] Comment on above: Result Comment: Perf ormed at: [facility] [address] [id number] Director Public Service: Moses Gomez PhD, Phone: [phone] Performed By: #### L 4500.0100, L4500.8800, L3100.7250, L4500.2000, L3410.2000, L4500.5000, L3300.0450, L4500.8350, L3100.8408, L3100.5600, L3100.5800, L101.9900, L3100.7050, L3100.5450, L3100.7325, L3100.5700 #### [facility] [address] [place], [place], [address] Erythrocyte Sed Rateon 09-28 SED RATE 12 mm/hr Normal 0-20 [facility] Comment on above: Performed By: #### L 4500.0100, L4500.8800, L3100.7250, L4500.2000, L3410.2000, L4500.5000, L3300.0450, L4500.8350, L3100.8408, L3100.5600, L3100.5800, L101.9900, L3100.7050, L3100.5450, L3100.7325, L3100.5700 #### [facility] [address] [place], [place], [address] /Kim 08-29-2024 /NORMA.SELINA [facility] [address] [place] [address] OFFICE VISIT Date of Service: 08/29/24 MR#: [id number] Acct: [id number] Name: BERNARD HART Rep #: [id number] : 1960 Provider: LINDA Toth Age/Sex: 64/M Location: [facility] Status: Signed Intake Vital Signs 06/11/24 10:27 [...] not use caffeine: Yes HPI HPI HPI: BERNARD HART, is a 64 M who presents [...] Psych Psyc (more content not included)... Normal [facility] Orthopedic Visit Reporton Orthopedic Visit Report [facility] [address] [place] [address] OFFICE VISIT Date of Service: 08/20/24 MR#: [id number] Acct: [id number] Name: BERNARD HART Rep #: [id number] : 1960 Provider: Dr. Neto Mayorga so DO Age/Sex: 64/M Location: [facility] [place] Status: Signed Intake Vital Signs 06/11/24 10:27 [...] the past year?: No PFSH Medical History (Reviewed 08/03/24 @ 08:15 by Renay Bruno REGULATORY AFFAIRS INTERN, REGULATORY AFFAIRS INTERN-C) Umbilical hernia without obstruction and without gangrene [...] skin of chest Sleep apnea Surgical History (Reviewed 08/03/24 @ 08:15 by Renay Bruno REGULATORY AFFAIRS INTERN, REGULATORY AFFAIRS INTERN-C) History of umbilical hernia repair Hx of [...] documented by [ ], acting as scribe. BERNARD HART is a 64 year old M [...] the pa (more content not included)... Normal [facility] Pulmonary Visit Reporton Pulmonary Visit Report [facility] [place] [address] [place] [address] OFFICE VISIT Date of Service: 08/03/24 MR#: [id number] Acct: [id number] Name: BERNARD HART Rep #: [id number] : 1960 Provider: LEVI Bruno Age/Sex: 63/M Location: [facility] Status: Signed Assessment and Plan Assessment and [...] a PapEd class. He often gets a "red face" indicating an air leak but he is [...] (pediatric) Plan Details Follow Up: 4 Months ([facility]) HPI Pap issues Chief Complaint: mask fit [...] that recently the machine seems to be "working properly". A few months ago he felt as though the machine was not blowing enough air. He is using it nightly and feeling more rested. He does report frequently seeing a "red face" indicating improper mask fit. He is currently [...] room air Intake Visit Reasons: Pap issues [employer] Supervisor Required: No DME Vendor: [employer]? Accompanied by: Self Is patient in pain?: No Allergies No Known Allergies Allergy (Verified 08/03/24 08:06) Medications ???Medication ???Instructions ???Recorded ???Confirmed ???Type rivaroxaban 20 mg tablet 20 mg PO DAILY 09/08/20 08/03/24 History multivitamin 1 tab PO DAILY 04/13/24 08/03/24 History Have you fallen in the past year?: No PFSH Medical History (Reviewed 08/03/24 @ 08:15 by Renay Bruno REGULATORY AFFAIRS INTERN, REGULATORY AFFAIRS INTERN-C) Umbilical hernia without obstruction and without gangrene [...] skin of chest Sleep apnea Surgical History (Reviewed 08/03/24 @ 08:15 by Renay Bruno REGULATORY AFFAIRS INTERN, REGULATORY AFFAIRS INTERN-C) History of umbilical hernia repair Hx of colonoscopy Hx of colonoscopy History of incision and drainage Family History (Reviewed 08/03/24 @ 08:15 by Renay Bruno REGULATORY AFFAIRS INTERN, REGULATORY AFFAIRS INTERN-C) Father Cancer Lung Social History (Reviewed 08/03/24 @ 08:15 by Renay Bruno REGULATORY AFFAIRS INTERN, REGULATORY AFFAIRS INTERN-C) household members: spouse current occupational status: employed Smoking Status: Never smoker second hand exposure: No alcohol intake: never substance use type: does not use caffeine: Yes Review of Systems Resp Respiratory: Yes as pe (more content not included)... Normal [facility] Knee 4 or More Viewson 07-20 Knee 4 or More Views [facility] [address] [place] [address] Knee 4 or More Views MR#: [id number] Acct: [id number] Name: BERNARD HART Rep #: [id number] : 1960 M 63 From: Bernice Guerrero PCP: Dr. Vick Washington MD Status: REG CLI Study: Knee 4 or More Views Date of Exam: 07/20/24 Exam# [id number] Ordering Dr: Vick Washington MD [id number] INDICATION: riGHT KNEE injury EXAMINATION/TECHNIQUE: X-RAY - [...] Signed: Bernice Henry MD at 1:20 EDT , CC: Dr. Vick Washington MD Rigging Slinger: Signed Normal [facility] Surgery Visit Reporton 07-16 Surgery Visit Report [facility] [address] [place] [address]. [address] [place] [address] OFFICE VISIT Date of Service: 07/16/24 MR#: [id number] Acct: [id number] Name: BERNARD HART Rep #: [id number] : 1960 Provider: Dr. Joaquin honeycutt MD Age/Sex: 63/M Location: [facility] Status: Signed Intake Vital Signs 06/11/24 [...] how things have been going patient replies "good, I think". He notes that he is "a little sore" and relates "I know something was done". He denies any discomfort at rest. He [...] post umbilical hernia repair, follow-up exam Z09 [facility] Medical History (Updated 06/21/24 @ 08:06 by [...] Date __ (more content not included)... Normal [facility] CV VENOUS LEG [facility] 3 CV VENOUS LEG [place] [address] Patient: BERNARD HART Phone#: : 1960 Age: 62 Gender: M Pt. Type: ER Account: [id number] Location: 052 Ordering: DR. YU TREJO Exam Date: 04/07/2023/8:09 Family Phys: Charge Code: 980205 Physician: Wise Order #: [id number] Dose#: PROCEDURE: VENOUS DOPPLER LT LEG COMPARISON: None. INDICATIONS: Pain TECHNIQUE: Color duplex Doppler ultrasound evaluation analysis was performed in the usual manner. CONVERSION WORKER: PAKO RISK FACTORS FOR VENOUS DISEASE: Blood [...] o + GSV + GASTROC SOLEAL V CONVERSION WORKER'S NOTES: Continued Report - Page 2 of 2 Patient: BERNARD HART Phone#: : 1960 Age: 62 Gender: M Pt. Type: ER Account: [id number] Location: 052 Ordering: DR. YU TREJO Exam Date: 04/07/2023/8:09 Family Phys: Charge Code: 188349 Physician: Wise Order #: [id number] Dose#: FINDINGS: THROMBI: None visible. COMPRESSIBILITY: Normal. OTHER: Negative. CONCLUSION: 1. No evidence of deep venous thrombosis in the left lower extremity Dictated by: Monica Oh MD on 04/07/2023 at 8:40 Approved by: Monica Oh MD on 04/07/2023 at 8:41 Normal [facility] TIBIA-FIBULA LTon 04-04-2023 TIBIA-FIBULA [place] [address] Patient: BERNARD HART Phone#: : 1960 Age: 62 Gender: M Pt. Type: ER Account: [id number] Location: 052 Ordering: STORMY FRANCO Exam Date: 04/04/2023/18:12 Family Phys: NO DOCTOR Charge Code: 834989 Physician: Wise Order #: [id number] Dose#: PROCEDURE: X-RAY TIB FIB LT 2 [...] Oh MD on 04/04/2023 at 18:[address] [facility] [address] HEAD WITHOUT ONLYon 07-09 CT HEAD WITHOUT ONLY EXAMINATION: CT HEA D WITHOUT ONLY HISTORY: Injury of head HEAD [...] of iterative reconstruction technique. FINDINGS: IMPRESSION: Normal [facility] Lupus Anticoag Panelon 05-31 Interpretation Normal [facility] Comment on above: Result [...] negative. DRVVT 1:1 Mix HPHI Normal 32.7-46.7 [facility] DRVVT Confirm Ratio HPHI Normal <1.21 [facility] DRVVT Screen HPHI Normal 32.7-46.7 [facility] Hex Phase Confirm HPHI Normal 41.8-54.9 [facility] Hex Phase Delta HPHI Normal <9.1 [facility] Hex Phase Screen HPHI Normal 45.0-59.9 [facility] PNP HPHI Abnormal Negative [facility] Thrombin Time >120.0 High <18.6 [facility] Anti Xa Inhib Assay *LAB USE Normal [facility] Comment on above: Result Comment: Anti Xa activity was detected. This test was developed and its performance characteristics determined by [facility] Blayne Jain [facility] [place] ( [facility]). It has not been cleared or approved by the FDA. [facility] is regulated under CLIA as qualified to perform high complexity testing. This test is used for clinical purposes. It should not be regarded as investigational or for research. aPTT Coag (Bld) [Time] HPHI Normal <33.2 [facility] aPTT Coag (Bld) [Time] s High 24.4-33.4 [facility] [place] [facility] Antithrombin Assayon 019 Antithrombin Assay 91 % Normal 84-138 [facility] Comment on above: Performed By: #### P RCFUN, AT3ASY, PRSCLT #### [facility] Hematology [address] [place] [id number] Factor V Leiden PCRon 2018 FV Leiden Report Normal [facility] Reference [facility] Comment on above: Result [...] blood specimen is evaluated for the c.1601G>A (p.Glg555Qcb; g.[id number]) variant of the F5 gene [RefSeq NM_000130.4; [...] developed and its performance characteristics determined by [facility] Blayne Cristobal [facility] [place] ([facility]). It has not been cleared or approved by the FDA. -[facility] is regulated under CLIA as certified to perform high-complexity testing. This test is used for clinical purpose. It should not be regarded as investigational or for research. References: 1) Margaret R, Ciaran G, Gaurav Piedra. The genetics of venous thromboembolism. A meta-analysis involving approximately 120,000 cases and 180,000 controls. Thromb Haemost 2009;102(2):360-70. 2) Inherited Thrombophilias in . ACOG Practice Bulletin. No. 197. [employer]stetricians and Gynecologists. Obstet Gynecol 2018;132:e18???34. 3) Sandra ALVARENGA. Factor V Leiden Thrombophilia. Latanya Med. 2011;13(1):1-16. 4) Pharmacogenomic summary [email or web address] Lupus Anticoag Panelon 05-30 Beta2 Glycoprot IgG <9 Normal <20 [facility] Beta2 Glycoprot IgM <9 Normal <20 [facility] IgA Cardiolipin Ab. <9 Normal 0-11 [facility] IgG Cardiolipin Ab. <9 Normal 0-9 [facility] IgM Cardiolipin Ab. <9 Normal 0-11 [facility] Protein C Functionalon 05-30 Protein [Mass/Vol] 110 % Normal 76-147 [facility] Reference Lab Comment on above: Performed By: #### P RCFUN, AT3ASY, PRSCLT #### [facility] Hematology [address] [place], [place] [address] Protein S Clottableon 2018 Protein S Clottable 85 % Normal 59-131 [facility] Reference Lab Comment on above: Performed By: #### P RCFUN, AT3ASY, PRSCLT #### [facility] Hematology [address] [place], [place] [address] Prothrombin Gene PCRon 05-30 PT Gene Report Normal [facility] Comment on above: Result Comment: (NOT E) Performing Pathologist: Christi Urban Interpretation: PT Gene Mutation Result: NORMAL PT Gene Mutation Interpretation: Interpretation: The DNA sample is negative for the c.*97G>A variant (legacy name 50211S>A) in the 3' untranslated region of the Factor II (F2) gene. This result is not associated with an increased risk of thromboembolic disease. Thromboembolic disease is a multifactorial disorder and other causes are not excluded by this result. Method: Isolated Genomic DNA from the patient's blood specimen is evaluated for the c*97G>A (g.98719286) variant of the F2 gene [RefSeq NM_[id number];GRCh38/hg38] by multiplex polymerase chain reaction (PCR) followed by melting curve analysis. Limitations: This assay is designed to detect the c.*97G>A (09501T>A) variant in the F2 gene. Uncommon variants or single nucleotide polymorphisms may affect binding of probes and may rarely result in false negative, false positive or indeterminate results. This assay does not detect other disease-associated rare variants in F2 or other causes of thromboembolic disease. This test was developed and its performance characteristics determined by [facility]'s [facility] [place] ([facility]). It has not been cleared or approved by the FDA. -[facility] is regulated under CLIA as certified to perform high-complexity testing. This test is used for clinical purpose. It should not be regarded as investigational or for research. References: 1) Inherited Thrombophilias in . ACOG Practice Bulletin. No. 197. [employer]etricians [employer] Gynec[employer]. Obstet Gynecol 2018;132:e18???34. 2) Missyt SR, Fela FR, Solomon PH, and Margie BUCHANAN. A common genetic variation in the 3'-untranslated region of the prothrombin gene is associated with elevated plasma prothrombin levels and an increase in venous thrombosis. Blood 88:[id number],1995. 3) Kaela I, Cassi V, Sera C, Danielle K. Prothrombin 04559Q>T: 16 new cases, association with the 52512U>G polymorphism, and literature review. J Thromb Haemost. 2009;9:1585-7. Lupus Anticoag Panelon 05-29 aPTT Coag (Bld) [Time] s High 23.0-32.4 [facility] INR Coag (PPP) [Relative time] 1.2 {INR} Normal 0.9-1.3 [facility] PT Sec 13.0 sec Normal 9.7-13.0 [facility] Vital Signs Date Time Vital Sign Value Performing Clinician Milagros rodrigues 12-04-2024 07:35-0400 Body mass index (BMI) [Ratio] 37.4 kg/m2 Vick Washington MD Work Phone: [facility] 12-04-2024 07:35-0400 Body temperature 97.4 [degF] Vick Washington MD Work Phone: [facility] 12-04-2024 07:35-0400 Body weight 128.82 kg Vick Washington MD Work Phone: [facility] 12-04-2024 07:35-0400 Diastolic blood pressure 79 mm[Hg] Vick Washington MD Work Phone: [facility] 12-04-2024 07:35-0400 Heart rate 75 /min Vick Washington MD Work Phone: [facility] 12-04-2024 07:35-0400 Respiratory rate 18 /min Vick Washington MD Work Phone: [facility] 12-04-2024 07:35-0400 SaO2% (BldA) [Mass fraction] 94 % Vick Washington MD Work Phone: [facility] 12-04-2024 07:35-0400 Systolic blood pressure 121 mm[Hg] Vick Washington MD Work Phone: [facility] 07-29-2022 08:24-0500 Body height 185.42 cm [facility] INTER[facility]-C Floridalma Kavon REGULATORY AFFAIRS INTERN Work Phone: [facility] Work Phone: 07-29-2022 08:24-0500 Body mass index (BMI) [Ratio] 37.2 kg/m2 [facility] INTERN-C Floridalma Kavon REGULATORY AFFAIRS INTERN Work Phone: [facility] Work Phone: 07-29-2022 08:24-0500 Body weight 127.91 kg [facility]AT[facility] AFFAIRS INTERN-C Floridalma Kavon REGULATORY AFFAIRS INTERN Work Phone: [facility] Work Phone: 07-29-2022 08:24-0500 Diastolic blood pressure 59 mm[Hg] [facility] AFFAIRS INTERN-C Floridalma Kavon REGULATORY AFFAIRS INTERN Work Phone: [facility] Work Phone: 07-29-2022 08:24-0500 Heart rate 68 /min [facility]AT[facility] AFFAIRS INTERN-C Floridalma Kavon REGULATORY AFFAIRS INTERN Work Phone: [facility] Work Phone: 07-29-2022 08:24-0500 Respiratory rate 16 /min [facility] AFFAIRS INTERN-C Floridalma Kavon REGULATORY AFFAIRS INTERN Work Phone: [facility] Work Phone: 07-29-2022 08:24-0500 Systolic blood pressure 103 mm[Hg] [facility] AFFAIRS INTERN-C Floridalma Kavon REGULATORY AFFAIRS INTERN Work Phone: [facility] Work Phone: 06-29-2022 13:21-0400 Body height 185.42 cm [facility]ULAT[facility] AFFAIRS INTERN-C Floridalma Kavon REGULATORY AFFAIRS INTERN Work Phone: [facility] Work Phone: 06-29-2022 13:21-0400 Body mass index (BMI) [Ratio] 36.9 kg/m2 [facility] AFFAIRS INTERN-C Floridalma Kavon REGULATORY AFFAIRS INTERN Work Phone: [facility] Work Phone: 06-29-2022 13:21-0400 Body temperature 97.3 [degF] [facility]AT[facility] AFFAIRS INTERN-C Floridalma Kavon REGULATORY AFFAIRS INTERN Work Phone: [facility] Work Phone: 06-29-2022 13:21-0400 Body weight 127.06 kg REGULAT[facility] AFFAIRS INTERN-C Floridalma Kavon REGULATORY AFFAIRS INTERN Work Phone: [facility] Work Phone: 06-29-2022 13:21-0400 Diastolic blood pressure 79 mm[Hg] REG[facility]ATORY AFFAIRS INTERN-C Floridalma Kavon REGULATORY AFFAIRS INTERN Work Phone: [facility] Work Phone: 06-29-2022 13:21-0400 Heart rate 79 /min [facility]AT[facility] AFFAIRS INTERN-C Floridalma Kavon REGULATORY AFFAIRS INTERN Work Phone: [facility] Work Phone: 06-29-2022 13:21-0400 Respiratory rate 18 /min [facility] AFFAIRS INTERN-C Floridalma Kavon REGULATORY AFFAIRS INTERN Work Phone: [facility] Work Phone: 06-29-2022 13:21-0400 SaO2% (BldA) [Mass fraction] 96 % [facility] AFFAIRS INTERN-C Floridalma Kavon REGULATORY AFFAIRS INTERN Work Phone: [facility] Work Phone: 06-29-2022 13:21-0400 Systolic blood pressure 126 mm[Hg] [facility]AT[facility] AFFAIRS INTERN-C Floridalma Kavon REGULATORY AFFAIRS INTERN Work Phone: [facility] Work Phone: 06-18-2022 10:33-0400 Body mass index (BMI) [Ratio] 36.7 kg/m2 [facility] AFFAIRS INTERN-C Floridalma Kavon REGULATORY AFFAIRS INTERN Work Phone: [facility] Work Phone: 06-18-2022 10:33-0400 Body weight 126.32 kg REG[facility]AT[facility] AFFAIRS INTERN-C Floridalma Kavon REGULATORY AFFAIRS INTERN Work Phone: [facility] Work Phone: 06-18-2022 10:33-0400 Diastolic blood pressure 66 mm[Hg] [facility]ULAT[facility] AFFAIRS INTERN-C Floridalma Kavon REGULATORY AFFAIRS INTERN Work Phone: [facility] Work Phone: 06-18-2022 10:33-0400 Heart rate 64 /min [facility] AFFAIRS INTERN-C Floridalma Kavon REGULATORY AFFAIRS INTERN Work Phone: [facility] Work Phone: 06-18-2022 10:33-0400 Respiratory rate 16 /min REG[facility] AFFAIRS INTERN-C Floridalma Kavon REGULATORY AFFAIRS INTERN Work Phone: [facility] Work Phone: 06-18-2022 10:33-0400 Systolic blood pressure 110 mm[Hg] REG[facility]AT[facility] AFFAIRS INTERN-C Floridalma Kavon REGULATORY AFFAIRS INTERN Work Phone: [facility] Work Phone: Encounters Encounter Date Encounter Type Care Provider Facility Start: 07-10-2025 [facility] Facility:[facility] Start: 06-28-2025 ambulatory Chalon Padmini Facility:[facility] Start: 03-30-2025 End: 03-30-2025 ambulatory Vick Washington MD Work Phone: -Laboratory Start: 03-30-2025 End: 03-30-[address] Vick Washington MD -Laboratory Work Phone: Start: 03-30-2025 End: 03-30-2025 ambulatory Chalon Padmini Facility:[facility] Start: 12-04-2024 End: 12-04-2024 Patient encounter procedure Renay Bruno REGULATORY AFFAIRS INTERN-C -[facility] Work Phone: Start: 12-04-2024 End: 12-04-2024 ambulatory Renay Bruno NP Facility:[facility] Start: 10-26-2024 End: 10-26-2024 ambulatory Mila Perry Facility:[facility] Start: 09-28-2024 End: 09-28-2024 ambulatory Chalon Padmini Facility:[facility] Start: 08-29-2024 End: 08-29-2024 ambulatory Mila Perry Facility:[facility] Start: 08-20-2024 End: 08-20-2024 ambulatory Neto Singhantonia Facility:[facility] Start: 08-07-2024 End: 08-07-2024 ambulatory Chalon Padmini Facility:[facility] Start: 08-03-2024 End: 08-03-2024 ambulatory Chalon Padmini Facility:[facility] Start: 07-20-2024 End: 07-20-2024 ambulatory Chalon Padmini Facility:[facility] Start: 07-16-2024 End: 07-16-2024 ambulatory Chalon Padmini Facility:[facility] Start: 04-07-2023 End: 04-07-2023 Emergency department patient visit YU TREJO [facility] Start: 04-04-2023 End: 04-04-2023 Emergency department patient visit STORMY FRANCO [facility] Start: 07-29-2022 End: 07-29-2022 Patient encounter procedure REGULATORY AFFAIRS INTERN-Patricia Jacobson REGULATORY AFFAIRS INTERN Work Phone: [facility] Start: 07-28-2022 End: 07-28-2022 ambulatory REGULATORY AFFAIRS INTERN-C Floridalmamera Beachner REGULATORY AFFAIRS INTERN Work Phone: [facility] Work Phone: Start: 07-28-2022 End: 07-28-2022 Patient encounter procedure REGULATORY AFFAIRS INTERN-C Floridalma Kavon REGULATORY AFFAIRS INTERN Work Phone: [facility] Start: 07-09-2022 End: 07-09-2022 ambulatory REG[facility] AFFAIRS INTERN-C Floridalma Jacobson REGULATORY AFFAIRS INTERN Work Phone: [facility] Work Phone: Start: 07-09-2022 End: 07-09-2022 Patient encounter procedure REGULATORY AFFAIRS INTERN-C Floridalma Jacobson REGULATORY AFFAIRS INTERN Work Phone: [facility] Start: 07-05-2022 Non-patient / Non-visit [facility]AT[facility] AFFAIRS INTERN-C Naheed Jacobson REGULATORY AFFAIRS INTERN Work Phone: [facility] Start: 07-05-2022 End: 07-05-2022 ambulatory REGULATORY AFFAIRS INTERN-C Floridalma Jacobson REGULATORY AFFAIRS INTERN Work Phone: [facility] Work Phone: Start: 07-05-2022 End: 07-05-2022 Patient encounter procedure REGULATORY AFFAIRS INTERN-C Floridalma Jacobson REGULATORY AFFAIRS INTERN Work Phone: [facility] Start: 06-29-2022 End: 06-29-2022 Patient encounter procedure REGULATORY AFFAIRS INTERN-C Floridalma Jacobson REGULATORY AFFAIRS INTERN Work Phone: [facility] Start: 06-18-2022 End: 06-18-2022 Patient encounter procedure REGULATORY AFFAIRS INTERN-C Floridalma Jacobson REGULATORY AFFAIRS INTERN Work Phone: [facility] Start: 06-15-2022 Non-patient / Non-visit REGULATORY AFFAIRS INTERN-C Naheed Jacobson REGULATORY AFFAIRS INTERN Work Phone: [facility] Start: 04-16-2022 Non-patient / Non-visit REGULATORY AFFAIRS INTERN-C Naheed Jacobson REGULATORY AFFAIRS INTERN Work Phone: [facility] Start: 04-16-2022 End: 04-16-2022 Patient encounter procedure REGULATORY AFFAIRS INTERNJulio César Jacobson REGULATORY AFFAIRS INTERN Work Phone: [facility] Start: 07-20-2021 End: 07-21-2021 ambulatory PRISCILLA CHAVES MD Facility:[facility] Start: 07-09-2021 End: 07-09-2021 ambulatory MARTINA WALLER MD Facility:[facility] Start: 03-19-2021 End: 03-19-[address] BETSY PEREZ MD Facility:[facility] Procedures Date Procedure Procedure Detail Performing Clinician Start: 03-30-2025 Prostate specific an tigen measurement Vick Washington MD Work Phone: Comment on above: This test was perfor med using the [employer] tPSA method. Measured values of a patient sample can vary depending on the testing procedure used. PSA values determined on patient samples by different testing procedures cannot be used interchangeably. If there is a change in PSA assays while monitoring therapy, sequential testing should be performed to confirm baseline values. Start: 03-30-2025 Vitamin D, 25-hydrox y measurement Vick Washington MD Work Phone: Comment on above: Vitamin D StatusDefi ciency: <20 ng/mL (50nmol/L)Insufficiency: 20-30 ng/mL (50-75 nmol/L)Sufficiency: 30-100 ng/mL (75-250 nmol/L)Toxicity: >100 ng/mL (>250 nmol/L) Start: 07-05-2022 Radionuclide imaging of perfusion of myocardium under exercise stress LEVI Jacobson REGULATORY AFFAIRS INTERN Work Phone: Plan of Treatment Date Care Activity Detail Author [facility] Work Phone: Payers Date Payer Category Payer Self-pay [id number] 2024 Medicare [id number] 2024 Unknown [id number] 2021 Unknown [id number] 2021 Unknown [id number] 2004 Unknown [id number] 1959 Unknown [id number] 2.16.8 [id number] 1959 Unknown [id number] 2.16.8 [id number] 1959 Unknown [id number] 2.16.8 [id number] Private Health Insurance [facility] [id number] Private Health Insurance [facility] [id number] Unknown [id number] Unknown [id number] 2.16.8 [id number] Unknown [id number] 2.16.8 [id number] Unknown [id number] 2.16.8 [id number] Unknown [id number] 2.16.8 [id number] Unknown [id number] 2.16.8 [id number] Unknown [id number] 2.16.8 [id number] Unknown [id number] 2.16.8 [id number] Unknown [id number] 2.16.8 [id number] Unknown [id number] 2.16.8 [id number] Unknown [id number] 2.16.8 [id number] Unknown [id number] 2.16.8 [id number] Unknown [id number] 2.16.8 [id number] Social History Date Type Detail Facility Start: 06-29-2022 End: 07-29-2022 Tobacco smoking status NHIS Unknown if ever smoked [facility] Work Phone: Start: 1960 Sex Assigned At Male [facility] Start: 08-02-2024 Tobacco smoking stat us NHIS Never smoked tobacco (finding) [facility] Medical Equipment Procedure Code Equipment Code Equipment Origin al Text Equipment Identifier Dates MESH,VENTLEX ST ,LG 8CM FDA Start: 06-11-2024 Evaluation note 12-04-2024 Note Date & Type Note Facility 12-04-2024 Evaluation note Diagnosis Onset Date Resolution Obesity chronic December 04 7:39am MARISOL (obstructive sleep apnea) chronic December 04, 2024 7:39am [facility] Work Phone: Clinical Note 03-19-2021 Note Date & Type [...] phalanx level. 2. No acute osseous pathology [facility] Evaluation note Note Date & Type Note Facility Evaluation note Diagnosis Onset Date MARISOL (obstructive sleep apnea) acute Palpitations acute Paroxysmal ventricular tachycardia acute Premature ventricular contraction acute Pulmonary embolism and infarction acute BMI 36.0-36.9,adult acute MARISOL (obstructive sleep apnea) acute Paroxysmal ventricular tachycardia acute [facility] Work Phone: Evaluation note Note Date & [...] contraction acute Pulmonary embolism and infarction acute [facility] Work Phone: Reason for referral (narrative) Note Date & Type Note Facility Reason for referral (narrative) No reason for referral information available [facility] Work Phone: Summary Purpose Family History No [...] Premature ventricular contraction Pulmonary embolism and infarction Chief Complaint Admit Date 4 M FU December 04, 2024 7:3 9am Reason for Visit Admit Date Obesity December 04, 2024 7:3 9am MARISOL (obstructive sleep apnea) November 7:39am Additional Source Comments (unrecognized sect ion and content) No Status Records FoundNo Status Records FoundNo Status Records FoundNo Status Records Found INFORMATION SOURCE (unrecogn ized section and content) DATE CREATED AUTHOR 06/01/2019 [facility] DATE CREATED AUTHOR AUTHOR'S ORGANIZ ATION 08/05/2021 [facility] DATE CREATED AUTHOR AUTHOR'S ORGANIZ ATION [facility] DATE CREATED AUTHOR AUTHOR'S ORGANIZ ATION 07/02/2025 [facility] Goals (unrecognized section and content) Goals may be documented in a n alternate sectionGoals may be documented in an alternate sectionGoals may be documented in an alternate sectionGoals may be documented in an alternate section Care Teams (unrecognized sec tion and content) Team Status: Active Member Role/Relationship Status Dates Vick Washington MD Primary Care Provider Active Team Status: Inactive Member Role/Relationship Status Dates Vick Washington MD Referring Provider Active Start : December 04, 2024 End: December 04, 2024 Renay Bruno REGULATORY AFFAIRS INTERN, [facility]AIRS INTERN-C Attending Provider Active Start: December 04, 2024 End: December 04, 2024 Team Status: Inactive Member Role/Relationship Status Annabelle Washington MD Primary Care Provider Active St art: March 30, 2025 End: March 30, 2025 Vick Washington MD Attending Provider Active Start : March 30, 2025 End: March 30, 2025 Vick Washington MD Referring Provider Active Start : March 30, 2025 End: March 30, 2025 FOR RECORDS PERTAINING TO PATIENTS WHO ARE [...] BE BASED ON THE PRIMARY CLINICAL RECORDS. [employer] provides no warranty or guarantee of the accuracy or completeness of information in this document.
--- NOTE | 2025-07-10 11:52 | STRESSREP_ITS ---
Stress Test Report Date: 07/10/2025 Procedure: Exercise tolerance test Indications: Dyspnea Consent: Per the patient Procedure: The patient exercised on a Jakob protocol for 7 minutes and 45 seconds achieving a peak heart rate of 144 bpm (92% predicted maximal heart rate) with a peak blood pressure 172/82 mmHg and a peak MET capacity of approximately 10.1 MET's. The baseline ECG demonstrated sinus rhythm. The peak exercise ECG showed sinus tachycardia with no ischemic changes. Rare PVC noted. The functional capacity was considered very good for age. The patient had no complaints of chest discomfort during exercise or recovery. Complained of dyspnea. The examination was discontinued secondary to target heart rate being achieved and dyspnea. Impression: 1. Technically adequate (percent predicted maximal heart rate greater than 85%) exercise tolerance test. Very good functional capacity for age. 2. Peak exercise ECG with no ischemic changes 3. No significant cardiac dysrhythmias noted during exercise or in recovery This note was generated with [employer] software. It may contain incorrect words, spelling, and punctuation that were not noted in checking the note before signing.
== END | disposition home or self-care (01) ==
LOC: CVS 09:02
PROVIDERS: PCP Family Medicine; Referring Provider Family Medicine; Visit Provider Family Medicine
DX: N62 Hypertrophy of breast (principal); R06.02 Shortness of breath
CPT/HCPCS: 36415; 84403; 93017

== ENCOUNTER → 2025-09-02 | Outpatient (CLI) | payer MEDICARE, BC, SELFPAY ==
--- OUTSIDE RECORDS SUMMARY | 2025-09-02 06:06 | XMS RPT_ITS | CCD ---
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 [place], [place], [address] Triglyceride [Mass/Vol] 125 mg/dL Normal [facility] Comment on above: Order Comment: Order Date: 03/21/25Order Info: 0786 - CMPOrder Info: [id number] - LIPIDOrder Info: [id number] - TSHOrder Info: [id number] - PSA Result Comment: The drugs N-Acetylcysteine and Metamizole may falsely depress this assay. Normal range: <150 mg/dL Borderline High: 150-199 mg/dL High: 200-499 mg/dL Very High: >500 mg/dL Performed By: #### L 500.4100, L501.9910, L501.9520, L500.4050, L100.0100 ####[facility] [address] [place], [place], [id number] MCV (mean corpuscular volume ) determinationOrdered By: Vick Washington on 03-30-2025 MCV (RBC) [Entitic vol] 91.4 fL 80-94 [facility] Mean corpuscular hemoglobin (MCH) determinationOrdered By: Vick Washington on 03-30-2025 MCH (RBC) [Entitic mass] 30.6 pg 27.0-32.0 [facility] Mean corpuscular hemoglobin concentration (MCHC) determinationOrdered By: Vick Washington on 03-30-2025 MCHC (RBC) [Mass/Vol] 33.5 g/dL 32-36 [facility] Mean platelet volume determi nationOrdered By: Vick Washington on 03-30-2025 Platelet mean volume (Bld) [Entitic vol] 9.6 fL 6.2-12.0 [facility] Monocyte percentageOrdered B y: Vick Washington on 03-30-2025 Monocytes/100 WBC (Bld) 9.0 % 0-10 [facility] Neutrophil percentageOrdered By: Vick Washington on 03-30-2025 Neutrophils/100 WBC (Bld) 61.4 % 47-70 [facility] Nucleated red blood cell per centageOrdered By: Vick Washington on 03-30-2025 Nucleated RBC/100 WBC (Bld) [Ratio] 0 % 0-5 [facility] PSA,Total - Annual Screenon 03-30-2025 PSA,TOT SCREEN 0.64 ng/mL Normal 0.02-4.00 [facility] Comment on above: Order Comment: Order Date: 03/21/25Order Info: 0786-1 - CMPOrder Info: [id number] - LIPIDOrder Info: [id number] - TSHOrder Info: [...] #### L 500.4100, L501.9910, L501.9520, L500.4050, L100.0100 ####[facility] [address] [place], [place], [address] Platelet countOrdered By: Kenney Washington on 03-30-2025 Platelets (Bld) [#/Vol] 280 10*3/uL 150-450 [facility] Potassium measurement (mass/ volume)Ordered By: Vick Washington on 03-30-2025 Potassium (Unsp spec) [Mass/Vol] 4.2 mmol/L 3.3-5.1 [facility] RBC Auto (Bld) [#/Vol]Ordere d By: Vick Washington on 03-30-2025 RBC (Bld) [#/Vol] 4.74 10*6/uL 4.6-6.2 [facility] Screening total cholesterol/ high density lipoprotein (HDL) cholesterol ratioOrdered By: Vick Washington on 03-30-2025 Cholesterol.total/Chol esterol in HDL [Mass ratio] 4.47 {ratio} [facility] Serum creatinine measurement (mass/volume)Ordered By: Vick Washington on 03-30-2025 Creatinine [Mass/Vol] 1.24 mg/dL High 0.70-1.20 [facility] Serum globulin measurementOr dered By: Vick Washington on 03-30-2025 Globulin (S) [Mass/Vol] 3.2 g/dL 2.2-4.2 [facility] Serum glucose measurement (m ass/volume)Ordered By: Vick Washington on 03-30-2025 Glucose [Mass/Vol] 102 mg/dL High 70-99 [facility] Serum or plasma alanine chery otransferase (ALT) measurementOrdered By: Vick Washington on 03-30-2025 ALT [Catalytic activity/Vol] 26 U/L <47 [facility] Serum or plasma albumin brown urement (mass/volume)Ordered By: Vick Washington on 03-30-2025 Albumin [Mass/Vol] 4.1 g/dL 3.4-4.8 [facility] Serum or plasma albumin/glob ulin mass ratioOrdered By: Vick Washington on 03-30-2025 Albumin/Globulin [Mass ratio] 1.3 {ratio} 0.9-2.4 [facility] Serum or plasma alkaline christopher sphatase measurementOrdered By: Vick Washington on 03-30-2025 ALP [Catalytic activity/Vol] 75 U/L 40-129 [facility] Serum or plasma calcium brown urement (mass/volume)Ordered By: Vick Washington on 03-30-2025 Calcium [Mass/Vol] 9.3 mg/dL 7.6-11.0 [facility] Serum or plasma cholesterol in HDL measurement (mass/volume)Ordered By: Vick Washington on 03-30-2025 Cholesterol in HDL [Mass/Vol] 37 mg/dL Low >40 [facility] Comment on above: National Cholesterol Education Program (NCEP) guidelines:<40 mg/dL: Low HDL-cholesterol (major risk factor for CHD)>= 60 mg/dL: High HDL-cholesterol (negative risk factor for CHD)HDL-cholesterol is affected by a number of factors, e.g. smoking, exercise, hormones, sex and age. Serum or plasma cholesterol measurement (mass/volume)Ordered By: Vick Washington on 03-30-2025 Cholesterol [Mass/Vol] 167 mg/dL <201 [facility] Comment on above: Cholesterol level, D esirable <200 mg/dLBorderline high cholesterol 200-239 mg/dLHigh cholesterol >=240 mg/dLRecommendations of the NCEP Adult Treatment Panel for the following risk-cutoff thresholds for the [place] population. Serum or plasma urea nitroge n measurement (mass/volume)Ordered By: Vick Washington on 03-30-2025 Urea nitrogen [Mass/Vol] 21 mg/dL High 4-19 [facility] Sodium levelOrdered By: Cheyanne Washington on 03-30-2025 Sodium [Moles/Vol] 140 mmol/L 133-145 [facility] TSH DL <= 0.005 mIU/L QnOrde red By: Vick Washington on 03-30-2025 TSH Qn 2.020 uIU/mL 0.300-4.200 [facility] Thyroid Stim Hormone (TSH)on 03-30-2025 TSH 2.020 uIU/mL Normal 0.300-4.200 [facility] Comment on above: Order Comment: Order Date: 03/21/25Order Info: [id number] - CMPOrder Info: [id number] - LIPIDOrder Info: [id number] - TSHOrder Info: [id number] - PSA Performed By: #### L 500.4100, L501.9910, L501.9520, L500.4050, L100.0100 ####[facility] [address] [place], [place], [address] Total proteinOrdered By: Albina Washington on 03-30-2025 Protein [Mass/Vol] 7.2 g/dL 5.9-8.4 [facility] Triglycerides measurementOrd ered By: Vick Washington on 03-30-2025 Triglyceride [Mass/Vol] 125 mg/dL <199 [facility] Comment on above: The drugs N-Acetylcy steine and Metamizole may falsely depress this assay. Normal range: <150 mg/dLBorderline High: 150-199 mg/dLHigh: 200-499 mg/dLVery High: >500 mg/dL Vitamin D,25 Hydroxyon 03-30 Vitamin D 25-OH 37.8 ng/mL Normal 30-100 [facility] Comment on above: Order Comment: Order Date: 03/21/25Order Info: 0786-1 - CMPOrder Info: [id number] - LIPIDOrder Info: [id number] - TSHOrder Info: [id number] - PSA Result Comment: Tiana min D Status Deficiency: <20 ng/mL (50nmol/L) Insufficiency: 20-30 ng/mL (50-75 nmol/L) Sufficiency: 30-100 ng/mL (75-250 nmol/L) Toxicity: >100 ng/mL (>250 nmol/L) Performed By: #### L 506.1001 ####[facility] [address] [place], [address] White blood cell (WBC) count Ordered By: Vick Washington on 03-30-2025 WBC (Bld) [#/Vol] 5.9 10*3/uL 4.4-11.0 [facility] Pulmonary Visit Reporton Pulmonary Visit Report [facility] [place] 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 Normal [facility] MR/BMS.Mojgan 10-26-2024 MR/BMS.BVS [facility] [address] [place], [place] [address] OFFICE VISIT Date of Service: 10/26/24 MR#: [id number] Acct: [id number] Name: BERNARD CABELLO Rep #: [id number] : 1960 Provider: LINDA Toth Age/Sex: 64/M Location: [facility] Status: Signed Intake Vital Signs [...] use caffeine: Yes HPI HPI HPI: BERNARD CABELLO, is a 64 M who presents to [...] I do (more content not included)... Normal [facility] AT III Func / Immunolon -2 AT3 AG, IMMUNOL 104 Normal 72-124 [facility] Comment on above: Order Comment: Test( s) 084019-Cuigqbqnocvy Antigenwas developed and its performance characteristicsdetermined by [employer]. It has not been cleared or approvedby the Food and Drug Administration. Performed By: #### L 4500.0100, L4500.8800, L3100.7250, L4500.2000, L3410.2000, L4500.5000, L3300.0450, L4500.8350, L3100.8408, L3100.5600, L3100.5800, L101.9900, L3100.7050, L3100.5450, L3100.7325, L3100.5700 ####[facility] [address] [place], [place], [id number] AT3 FUNCTIONAL 112 Normal 75-135 [facility] Comment on above: Order Comment: Test( s) 390990-Rbxiparbaahx Antigenwas developed and its performance characteristicsdetermined by [facility]. It has not been cleared or approvedby the Food and Drug Administration. Result Comment: Dire ct Xa inhibitor anticoagulants such as rivaroxaban, apixaban and edoxaban will lead to spuriously elevated antithrombin activity levels possibly masking a deficiency. Performed By: #### L 4500.0100, L4500.8800, L3100.7250, L4500.2000, L3410.2000, L4500.5000, L3300.0450, L4500.8350, L3100.8408, L3100.5600, L3100.5800, L101.9900, L3100.7050, L3100.5450, L3100.7325, L3100.5700 ####[facility] [address] [place], [place], [id number] Anticardiolipin IgA,G,Mon ANTICARDIO IgA < 9 Normal 0-11 [facility] Comment on above: Order Comment: Test( s) 498697-Hgfizcpmlzmk Antigenwas developed and its performance characteristicsdetermined by [facility]. It has not been cleared or approvedby the Food and Drug Administration. Result Comment: Nega tive: <12 Indeterminate: 12 - 20 Low-Med Positive: >20 - 80 High Positive: >80 Performed By: #### L 4500.0100, L4500.8800, L3100.7250, L4500.2000, L3410.2000, L4500.5000, L3300.0450, L4500.8350, L3100.8408, L3100.5600, L3100.5800, L101.9900, L3100.7050, L3100.5450, L3100.7325, L3100.5700 ####[facility] [address] [place], [place], [address] ANTICARDIO IgG < 9 Normal 0-14 [facility] Comment on above: Order Comment: Test( s) 785427-Arlpknerecyf Antigenwas developed and its performance characteristicsdetermined by [facility]. It has not been cleared or approvedby the Food and Drug Administration. Result Comment: Nega tive: <15 Indeterminate: 15 - 20 Low-Med Positive: >20 - 80 High Positive: >80 Performed By: #### L 4500.0100, L4500.8800, L3100.7250, L4500.2000, L3410.2000, L4500.5000, L3300.0450, L4500.8350, L3100.8408, L3100.5600, L3100.5800, L101.9900, L3100.7050, L3100.5450, L3100.7325, L3100.5700 ####[facility] [address] [place], [address] Anticardio.IgM < 9 Normal 0-12 [facility] Comment on above: Order Comment: Test( s) 620960-Bvftpmvzpfcp Antigenwas developed and its performance characteristicsdetermined by [facility]. It has not been cleared or approvedby the Food and Drug Administration. Result Comment: Nega tive: <13 Indeterminate: 13 - 20 Low-Med Positive: >20 - 80 High Positive: >80 Performed By: #### L 4500.0100, L4500.8800, L3100.7250, L4500.2000, L3410.2000, L4500.5000, L3300.0450, L4500.8350, L3100.8408, L3100.5600, L3100.5800, L101.9900, L3100.7050, L3100.5450, L3100.7325, L3100.5700 ####[facility] [address] [place], [address] Beta-2 Glycoprot IgG, A, 10-08-2024 B2 GLYCO I IGA <9 Normal 0-25 [facility] Comment on above: Order Comment: Test( s) 144177-Tzghpawslspp Antigenwas developed and its performance characteristicsdetermined by [facility]. It has not been cleared or approvedby [...] L3100.5600, L3100.5800, L101.9900, L3100.7050, L3100.5450, L3100.7325, L3100.5700 ####[facility] [address] [place], [place], [address] B2 GLYCO I IGG <9 Normal 0-20 [facility] Comment on above: Order Comment: Test( s) 753617-Olydiebtriyk Antigenwas developed and its performance characteristicsdetermined by [facility]. It has not been cleared or approvedby [...] L3100.5600, L3100.5800, L101.9900, L3100.7050, L3100.5450, L3100.7325, L3100.5700 ####[facility] [address] [place], [place], [address] B2 GLYCO I IGM <9 Normal 0-32 [facility] Comment on above: Order Comment: Test( s) 779907-Ydzemwicsjqd Antigenwas developed and its performance characteristicsdetermined by [facility]. It has not been cleared or approvedby [...] L3100.5600, L3100.5800, L101.9900, L3100.7050, L3100.5450, L3100.7325, L3100.5700 ####[facility] [address] [place], [place], [address] Complement C3on 10-08-2024 COMP C3 142 mg/dL Normal 82-167 [facility] Comment on above: Order Comment: Test( s) 716212-Dblmsjdmpqph Antigenwas developed and its performance characteristicsdetermined by [facility]. It has not been cleared or approvedby the Food and Drug Administration. Performed By: #### L 4500.0100, L4500.8800, L3100.7250, L4500.2000, L3410.2000, L4500.5000, L3300.0450, L4500.8350, L3100.8408, L3100.5600, L3100.5800, L101.9900, L3100.7050, L3100.5450, L3100.7325, L3100.5700 ####[facility] [address] [place], [place], [id number] Complement C4on 10-08-2024 COMPLEMENT, C4 32 mg/dL Normal 12-38 [facility] Comment on above: Order Comment: Test( s) 771842-Zpbejzsyrdqb Antigenwas developed and its performance characteristicsdetermined by [facility]. It has not been cleared or approvedby the Food and Drug Administration. Performed By: #### L 4500.0100, L4500.8800, L3100.7250, L4500.2000, L3410.2000, L4500.5000, L3300.0450, L4500.8350, L3100.8408, L3100.5600, L3100.5800, L101.9900, L3100.7050, L3100.5450, L3100.7325, L3100.5700 ####[facility] [address] [place], [place], [address] Complement CH50on 10-08-2024 COMPLEMENT,CH50 49 U/mL Normal >41 [facility] Comment on above: Order Comment: Test( s) 770567-Upoowzsnjdwu Antigen was developed and its performance characteristics [...] L3100.5800, L101.9900, L3100.7050, L3100.5450, L3100.7325, L3100.5700 #### [facility] [address] [place], [address] Fact V Leiden Mutationon FACTOR V LEIDEN Comment Normal . [facility] Comment on above: Order Comment: Test( s) 068412-Smadbyuwwfbr Antigen was developed and its performance characteristics determined by [facility]. It has not been cleared or approved by the Food and Drug Administration. Result Comment: Resu lt: c.1601G>A (p.Nzj858Aeu) - Not Detected This result is not associated with an increased risk for venous thromboembolism. See Additional Clinical Information and Comments. Additional Clinical Information: Venous thromboembolism is a multifactorial disease influenced by genetic, environmental, and circumstantial risk factors. The c.1601G>A (p. Squ080Gsm) variant in the F5 gene, commonly referred [...] c.*97G>A variant and Factor V Leiden (PMID: 21992665). Additional risk factors include but are not [...] health care providers to discuss results at 7-450-932-OHBP (0585). Test Details: Variant Analyzed: c.1601G>A (p. Ojo821Lyw), referred to as Factor V Leiden Methods/Limitations: [...] developed and its performance characteristics determined by [facility]. It has not been cleared or approved by the Food and Drug Administration. References: Gildardo Chahal, Lanie TORRES, Donal R, Elvis WW, Juan R JH; ACMG Professional Practice and Guidelines Committee. Addendum: [place] [employer] consensus statement on factor V Leiden mutation testing. Lat[employer] Med. 2020Nov 21. doi: 10.1038/r38677-382-64663-r. PMID: 49814199. Sandra ALVARENGA. Factor V Leiden Thrombophilia. 1998January 30 (Updated 2017Sep 22). In: Aman MP, Gabby HH, Bettie RA, et al., editors. Jesusita(R) (Internet). [employer] ([place]): [facility]; 9017-6344. Available from: https://www.ncbi.nlm.nih.gov/books/OOA8194/ Caleb Chahal, Lanie TORRES, Eddie X, Efe B, Pierre EB, Amber P, Davina CS; [employer] Laboratory Child Welfare Specialist Committee. Venous thromboembolism laboratory testing (factor V Leiden and factor II c.*97G>A), 2018 update: a technical standard of the [place] [employer] and [employer] (ACMG). Latanya Med. 2018 Aug;20(12):9206-0852. doi: 10.1038/q42094-339-7702-q. Epub 2017Jun 23. PMID: 50529410. Performed By: #### L 4500.0100, L4500.8800, L3100.7250, L4500.2000, L3410.2000, L4500.5000, L3300.0450, L4500.8350, L3100.8408, L3100.5600, L3100.5800, L101.9900, L3100.7050, L3100.5450, L3100.7325, L3100.5700 #### [facility] [address] [place], [place], [address] Reviewed By Comment Normal . [facility] Comment on above: Order Comment: Test( s) 979897-Rkfasbpqiitf Antigen was developed and its performance characteristics determined by [facility]. It has not been cleared or approved by the Food and Drug Administration. Result Comment: Tech nical Component performed at [facility] RT Professional Component performed by: [employer] Luciano Reno, Ph.D., [facility] Director, Molecular Genetics [address] [place] [address] Performed By: #### L 4500.0100, L4500.8800, L3100.7250, L4500.2000, L3410.2000, L4500.5000, L3300.0450, L4500.8350, L3100.8408, L3100.5600, L3100.5800, L101.9900, L3100.7050, L3100.5450, L3100.7325, L3100.5700 #### [facility] [address] [place], [place], [address] Factor II, DNA Analysison FACTOR II, DNA Comment Normal . [facility] Comment on above: Order Comment: Test( s) 883972-Wwojuuzwhjll Antigen was developed and its performance characteristics determined by [facility]. It has not been cleared or approved [...] the F2 gene and a c.1601G>A (p. Eqr768Umh) variant in the F5 gene (commonly referred to as Factor V Leiden) have an approximately 20- fold increased risk for venous thromboembolism. Risks are likely to be even higher in more complex genotype combinations involving the F2 c.*97G>A variant and Factor V Leiden (PMID: 19702687). Additional risk factors include but are not [...] health care providers to discuss results at [phone]-VAFW (8929). Test Details: Variant analyzed: c.*97G>A, previously referred to as D59347H Methods/Limitations: DNA analysis of the F2 gene [...] developed and its performance characteristics determined by [facility]. It has not been cleared or approved by the Food and Drug Administration. References: Gildardo S, Lanie AK, Donal R, Elvis WW, Juan R RAMOS; A[employer]G Professional Practice and Guidelines Committee. Addendum: [place] [employer] consensus statement on factor V Leiden mutation testing. Latanya Med. 2020Nov 21. doi: 10.1038/c57373-384-54854-w. PMID: 54757274. Sandra ALVARENGA. Prothrombin Thrombophilia. 2005Apr 12 [Updated 2020Oct 23]. In: Aman MP, Gabby HH, Bettie RA, et al., editors. Jesus[employer]([place]) [Internet]. [employer] ([place]): [facility]; 0697-1978. Available from: https://www.ncbi.nlm.nih.gov/books/DWX5102/ Caleb S, Lanie AK, Morgan X, Efe B, Pierre EB, Amber P, Davina CS; [facility] Laboratory Child Welfare Specialist Committee. Venous thromboembolism laboratory testing (factor V Leiden and factor II c.*97G>A), 2018 update: a technical standard of the [place] [employer] (ACMG). Latanya Med. 2018 Aug;20(12):2623-0969. doi: 10.1038/[id number]-o. Epub 2017Jun 23. PMID: 55138089. Performed By: #### L 4500.0100, L4500.8800, L3100.7250, L4500.2000, L3410.2000, L4500.5000, L3300.0450, L4500.8350, L3100.8408, L3100.5600, L3100.5800, L101.9900, L3100.7050, L3100.5450, L3100.7325, L3100.5700 #### [facility] [address] [place], [address] Factor VIII Activityon 10-08 FAC VIII ACT 126 Normal 56-140 [facility] [facility] Comment on above: Order Comment: Test( s) 489642-Ztcijsvlhcwf Antigenwas developed and its performance characteristicsdetermined by [facility]. It has not been cleared or approvedby the Food and Drug Administration. Performed By: #### L 4500.0100, L4500.8800, L3100.7250, L4500.2000, L3410.2000, L4500.5000, L3300.0450, L4500.8350, L3100.8408, L3100.5600, L3100.5800, L101.9900, L3100.7050, L3100.5450, L3100.7325, L3100.5700 ####[facility] [address] [facility] [address] [place], [place], [id number] Lupus Anticoagulant Compon 0 10-08-2024 aPTT Coag (Bld) [Time] 36.9 s Normal 0.0-43.5 [facility] Comment on above: Order Comment: Test( s) 684493-Jgvjqgkbhmkk Antigen was developed and its performance characteristics determined by [facility]. It has not been cleared or approved by the Food and Drug Administration. Performed By: #### L 4500.0100, L4500.8800, L3100.7250, L4500.2000, L3410.2000, L4500.5000, L3300.0450, L4500.8350, L3100.8408, L3100.5600, L3100.5800, L101.9900, L3100.7050, L3100.5450, L3100.7325, L3100.5700 #### [facility] [address] [place], [place], [id number] DILUTE PT (dPT) 34.9 sec Normal 0.0-47.6 [facility] Comment on above: Order Comment: Test( s) 837660-Yutfkuopljlc Antigen was developed and its performance characteristics determined by [facility]. It has not been cleared or approved by the Food and Drug Administration. Performed By: #### L 4500.0100, L4500.8800, L3100.7250, L4500.2000, L3410.2000, L4500.5000, L3300.0450, L4500.8350, L3100.8408, L3100.5600, L3100.5800, L101.9900, L3100.7050, L3100.5450, L3100.7325, L3100.5700 #### [facility] [address] [facility], [place], [address] dPT Conf. Ratio 1.06 Ratio Normal 0.00-1.34 [facility] Comment on above: Order Comment: Test( s) 943569-Nsgzfawrtklh Antigen was developed and its performance characteristics determined by [facility]. It has not been cleared or approved by the Food and Drug Administration. Performed By: #### L 4500.0100, L4500.8800, L3100.7250, L4500.2000, L3410.2000, L4500.5000, L3300.0450, L4500.8350, L3100.8408, L3100.5600, L3100.5800, L101.9900, L3100.7050, L3100.5450, L3100.7325, L3100.5700 #### [facility] [address] [place], [address] DRVVT 36.4 sec Normal 0.0-47.0 [facility] Comment on above: Order Comment: Test( s) 675474-Oqzvranxmqhu Antigen was developed and its performance characteristics determined by [facility]. It has not been cleared or approved by the Food and Drug Administration. Performed By: #### L 4500.0100, L4500.8800, L3100.7250, L4500.2000, L3410.2000, L4500.5000, L3300.0450, L4500.8350, L3100.8408, L3100.5600, L3100.5800, L101.9900, L3100.7050, L3100.5450, L3100.7325, L3100.5700 #### [facility] [address] [place], [place], [id number] Interpretation Comment: Normal . [facility] Comment on above: Order Comment: Test( s) 442926-Ndpxjgvgadud Antigen was developed and its performance characteristics determined by [facility]. It has not been cleared or approved by the Food and Drug Administration. Result Comment: No l upus anticoagulant was detected. Performed By: #### L 4500.0100, L4500.8800, L3100.7250, L4500.2000, L3410.2000, L4500.5000, L3300.0450, L4500.8350, L3100.8408, L3100.5600, L3100.5800, L101.9900, L3100.7050, L3100.5450, L3100.7325, L3100.5700 #### [facility] [address] [place], [address] THROMBIN TIME 20.1 sec Normal 0.0-23.0 [facility] Comment on above: Order Comment: Test( s) 759535-Cogvolalfaqz Antigen was developed and its performance characteristics determined by [facility]. It has not been cleared or approved by the Food and Drug Administration. Performed By: #### L 4500.0100, L4500.8800, L3100.7250, L4500.2000, L3410.2000, L4500.5000, L3300.0450, L4500.8350, L3100.8408, L3100.5600, L3100.5800, L101.9900, L3100.7050, L3100.5450, L3100.7325, L3100.5700 #### [facility] [address] [place], [address] Protein C, Functionalon 01- PROTEIN C,FUNC 139 Normal 73-180 [facility] Comment on above: Order Comment: Test( s) 313878-Jqdqzgsibsnn Antigenwas developed and its performance characteristicsdetermined by [facility]. It has not been cleared or approvedby the Food and Drug Administration. Performed By: #### L 4500.0100, L4500.8800, L3100.7250, L4500.2000, L3410.2000, L4500.5000, L3300.0450, L4500.8350, L3100.8408, L3100.5600, L3100.5800, L101.9900, L3100.7050, L3100.5450, L3100.7325, L3100.5700 ####[facility] [address] [facility] [place], [address] Protein S Antigenon 10-08-19 25 PROTEIN S, FREE 102 Normal 61-136 [facility] Comment on above: Order Comment: Test( s) 049115-Jmqxuqwrwxiu Antigenwas developed and its performance characteristicsdetermined by [facility]. It has not been cleared or approvedby the Food and Drug Administration. Performed By: #### L 4500.0100, L4500.8800, L3100.7250, L4500.2000, L3410.2000, L4500.5000, L3300.0450, L4500.8350, L3100.8408, L3100.5600, L3100.5800, L101.9900, L3100.7050, L3100.5450, L3100.7325, L3100.5700 ####[facility] [address] [place], [address] PROTEIN S,TOTAL 102 Normal 60-150 [facility] Comment on above: Order Comment: Test( s) 136025-Mxzqxzwxuyff Antigenwas developed and its performance characteristicsdetermined by [...] L3100.5600, L3100.5800, L101.9900, L3100.7050, L3100.5450, L3100.7325, L3100.5700 ####[facility] [address] [facility] [place], [address] Protein S, Functionalon 09-20 PROTEIN S, FUNC 91 Normal 63-140 [facility] Comment on above: Order Comment: Test( s) 778509-Tbhdsejocvdb Antigenwas developed and its performance characteristicsdetermined by [...] L3100.5600, L3100.5800, L101.9900, L3100.7050, L3100.5450, L3100.7325, L3100.5700 ####[facility] [address] [place], [place], [address] Von Willebrand Factor Activi tyon 10-08-2024 vWF ACTIVITY 156 Normal 50-200 [facility] Comment on above: Order Comment: Test( s) 465918-Zsackdikowhy Antigenwas developed and its performance characteristicsdetermined by [facility]. It has not been cleared or approvedby the Food and Drug Administration. Result Comment: Perf ormed at: [facility] - [address] [id number] Inside Sales Coordinator: Ana Martinez MD, Phone: [phone] Performed at: [facility] - [address] [id number] Inside Sales Coordinator: Moses Gomez PhD, Phone: [phone] Performed at: [facility] [address] [place], [place] [id number] Inside Sales Coordinator: Cedric Olson [facility], Phone: [phone] Performed By: #### L 4500.0100, L4500.8800, L3100.7250, L4500.2000, L3410.2000, L4500.5000, L3300.0450, L4500.8350, L3100.8408, L3100.5600, L3100.5800, L101.9900, L3100.7050, L3100.5450, L3100.7325, L3100.5700 ####[facility] [address] [place], [place], [address] ALMITA w/ Reflex Mult Confirmon 10-01-2024 ALMITA,DIRECT Negative Normal Negative [facility] Comment on above: Result Comment: Perf ormed at: [facility] [address] [id number] Inside Sales Coordinator: Moses Gomez PhD, Phone: [phone] Performed By: #### L 4500.0100, L4500.8800, L3100.7250, L4500.2000, L3410.2000, L4500.5000, L3300.0450, L4500.8350, L3100.8408, L3100.5600, L3100.5800, L101.9900, L3100.7050, L3100.5450, L3100.7325, L3100.5700 #### [facility] [address] [place], [place], [address] Erythrocyte Sed Rateon 09-28 SED RATE 12 mm/hr Normal 0-20 [facility] Comment on above: Performed By: #### L 4500.0100, L4500.8800, L3100.7250, L4500.2000, L3410.2000, L4500.5000, L3300.0450, L4500.8350, L3100.8408, L3100.5600, L3100.5800, L101.9900, L3100.7050, L3100.5450, L3100.7325, L3100.5700 #### [facility] [address] [place], [place], [address] MR/Kim 08-29-2024 /NORMA.SELINA [facility] Vascular Surgery [address] [place] [address] OFFICE VISIT Date of Service: 08/29/24 MR#: [id number] Acct: [id number] Name: BERNARD CABELLO Rep #: [id number] : 1960 Provider: LINDA Toth Age/Sex: 64/M Location: [facility] [place].BVS Status: Signed Intake Vital Signs 06/11/24 10:27 [...] use caffeine: Yes HPI HPI HPI: BERNARD CABELLO, is a 64 M who presents to [...] Psych Psyc (more content not included)... Normal [facility] Orthopedic Visit Reporton Orthopedic Visit Report [facility] [address] [place] [address] OFFICE VISIT Date of Service: 08/20/24 MR#: [id number] Acct: [id number] Name: BERNARD CABELLO Rep #: [id number] : 1960 Provider: Dr. Neto Mayorga so, DO Age/Sex: 64/M Location: [facility] [place].RADHA Status: Signed Intake Vital Signs 06/11/24 10:27 [...] by [ ], acting as scribe. BERNARD CABELLO is a 64 year old M here [...] the pa (more content not included)... Normal [facility] Pulmonary Visit Reporton Pulmonary Visit Report [facility] [place] [address] [place] [address]. [address] [place] [address] OFFICE VISIT Date of Service: 08/03/24 MR#: [id number] Acct: [id number] Name: BERNARD CABELLO Rep #: [id number] : 1960 Provider: LEVI Bruno Age/Sex: 63/M Location: [facility] [place].PMW Status: Signed Assessment and Plan Assessment and [...] (pediatric) Plan Details Follow Up: 4 Months ([facility]) HPI Pap issues Chief Complaint: mask [...] room air Intake Visit Reasons: Pap issues Rooming House Operator Required: No DME Vendor: [employer]? Accompanied by: [...] as pe (more content not included)... Normal [facility] Knee 4 or More Viewson 07-20 Knee 4 or More Views [facility] [address] [place] [address] Knee 4 or More Views MR#: [id number] Acct: [id number] Name: BERNARD CABELLO Rep #: [id number] : 1960 M 63 From: Bernice Guerrero PCP: Dr. Vick [place] MD Status: REG CLI Study: Knee 4 or More Views Date of Exam: 07/20/24 Exam# [id number] Ordering Dr: Vick [place] MD [id number] INDICATION: riGHT KNEE injury EXAMINATION/TECHNIQUE: X-RAY - [...] 1:20 EDT Reading Location ID and State: [facility] / [place] Tel , Service support , CC: Dr. Vick [place] MD Pharmacy Stock Clerk: Signed Normal [facility] CV VENOUS LEG LTon CV VENOUS LEG LT [place] [address] Patient: BERNARD CABELLO Phone#: : 1960 Age: 62 Gender: M Pt. Type: ER Account: [id number] Location: 052 Ordering: DR. YU TREJO Exam Date: 04/07/2023/8:09 Family Phys: Charge Code: 113191 Physician: [place] Order #: [id number] Dose#: PROCEDURE: VENOUS DOPPLER LT LEG COMPARISON: None. INDICATIONS: Pain TECHNIQUE: Color duplex Doppler ultrasound evaluation analysis was performed in the usual manner. BENEFIT SPECIALIST: PAKO RISK FACTORS FOR VENOUS DISEASE: Blood [...] o + GSV + GASTROC SOLEAL V BENEFIT SPECIALIST'S NOTES: Continued Report - Page 2 of 2 Patient: BERNARD CABELLO Phone#: : 1960 Age: 62 Gender: M Pt. Type: ER Account: [id number] Location: 052 Ordering: DR. YU TREJO Exam Date: 04/07/2023/8:09 Family Phys: Charge Code: 365425 Physician: [place] Order #: [id number] Dose#: FINDINGS: THROMBI: None visible. COMPRESSIBILITY: Normal. OTHER: Negative. CONCLUSION: 1. No evidence of deep venous thrombosis in the left lower extremity Dictated by: Monica Oh MD on 04/07/2023 at 8:40 Approved by: Monica Oh MD on 04/07/2023 at 8:41 Normal [facility] TIBIA-FIBULA LTon 04-04-2023 TIBIA-FIBULA [place] [address] Patient: BERNARD CABELLO Phone#: : 1960 Age: 62 Gender: M Pt. Type: ER Account: [id number] Location: 052 Ordering: STORMY FRANCO Exam Date: 04/04/2023/18:12 Family Phys: NO DOCTOR Charge Code: 934308 Physician: [place] Order #: [id number] Dose#: PROCEDURE: X-RAY TIB FIB LT 2 [...] Oh MD on 04/04/2023 at 18:28 Normal [facility] CT HEAD WITHOUT ONLYon 07-09 CT [...] of iterative reconstruction technique. FINDINGS: IMPRESSION: Normal [facility] Lupus Anticoag Panelon 05-31 Interpretation Normal [facility] Comment on above: Result Comment: [...] negative. DRVVT 1:1 Mix HPHI Normal 32.7-46.7 [facility] DRVVT Confirm Ratio HPHI Normal <1.21 [facility] DRVVT Screen HPHI Normal 32.7-46.7 [facility] Hex Phase Confirm HPHI Normal 41.8-54.9 [facility] [place] [facility] Hex Phase Delta HPHI Normal <9.1 [facility] Hex Phase Screen HPHI Normal 45.0-59.9 [facility] Reference Lab PNP HPHI Abnormal Negative [facility] Thrombin Time >120.0 High <18.6 [facility] Anti Xa Inhib Assay *LAB USE Normal [facility] Comment on above: Result Comment: Anti Xa activity was detected. This test was developed and its performance characteristics determined by [facility]'s [facility] Pathology and Laboratory Medicine [facility] ([facility]). It has not been cleared or approved by the FDA. [facility] is regulated under CLIA as qualified to perform high complexity testing. This test is used for clinical purposes. It should not be regarded as investigational or for research. aPTT Coag (Bld) [Time] HPHI Normal <33.2 [facility] aPTT Coag (Bld) [Time] s High 24.4-33.4 [facility] Antithrombin Assayon 019 Antithrombin Assay 91 % Normal 84-138 [facility] Reference Lab Comment on above: Performed By: #### P RCFUN, AT3ASY, PRSCLT #### [facility] Hematology [address] [place] [address] Factor V Leiden PCRon 2018 FV Leiden Report Normal [facility] Reference Lab Comment on above: Result Comment: (NOT E) Performing Pathologist: hCristi Urban Interpretation: Result: NEGATIVE Interpretation: The DNA [...] blood specimen is evaluated for the c.1601G>A (p.Vvx447Ewz; [id number]) variant of the F5 gene [RefSeq NM_[id number]; [...] developed and its performance characteristics determined by [facility]'s [facility] Pathology [facility] Laboratory Medicine [facility] ([facility] It has not been cleared or approved by the FDA. [facility] is regulated under CLIA as certified to perform high-complexity testing. This test is used for clinical purpose. It should not be regarded as investigational or for research. References: 1) Margaret R, Ciaran G, Gaurav P. The genetics of venous thromboembolism. A meta-analysis involving approximately 120,000 cases and 180,000 controls. Thromb Haemost 2009;102(2):360-70. 2) Inherited Thrombophilias in . ACOG Practice Bulletin. No. 197. [employer]. Obstet Gynecol 2018;132:e18???34. 3) Sandra ALVARENGA. Factor V Leiden Thrombophilia. Latanya Med. 2011;13(1):1-16. 4) Pharmacogenomic summary [email or web address] Lupus Anticoag Panelon 05-30 Beta2 Glycoprot IgG <9 Normal <20 [facility] Beta2 Glycoprot IgM <9 Normal <20 [facility] IgA Cardiolipin Ab. <9 Normal 0-11 [facility] IgG Cardiolipin Ab. <9 Normal 0-9 [facility] IgM Cardiolipin Ab. <9 Normal 0-11 [facility] Protein C Functionalon 05-30 Protein [Mass/Vol] 110 % Normal 76-147 [facility] Reference Lab Comment on above: Performed By: #### P RCFUN, AT3ASY, PRSCLT #### [facility] Hematology [address] [place], [place] [address] Protein S Clottableon 2018 Protein S Clottable 85 % Normal 59-131 [facility] Reference Lab Comment on above: Performed By: #### P RCFUN, AT3ASY, PRSCLT #### [facility] Hematology [address], [place] [id number] Prothrombin Gene PCRon 05-30 PT Gene Report Normal [facility] Comment on above: Result Comment: (NOT E) Performing Pathologist: Christi Urban Interpretation: PT Gene Mutation Result: NORMAL PT Gene Mutation Interpretation: Interpretation: The DNA sample is negative for the c.*97G>A variant (legacy name 14320D>A) in the 3' untranslated region of the Factor II (F2) gene. This result is not associated with an increased risk of thromboembolic disease. Thromboembolic disease is a multifactorial disorder and other causes are not excluded by this result. Method: Isolated Genomic DNA from the patient's blood specimen is evaluated for the c*97G>A (g.[id number]) variant of the F2 gene [RefSeq NM_[id number];GRCh38/hg38] by multiplex polymerase chain reaction (PCR) followed by melting curve analysis. Limitations: This assay is designed to detect the c.*97G>A (92157W>A) variant in the F2 gene. Uncommon variants or single nucleotide polymorphisms may affect binding of probes and may rarely result in false negative, false positive or indeterminate results. This assay does not detect other disease-associated rare variants in F2 or other causes of thromboembolic disease. This test was developed and its performance characteristics determined by [facility] ([facility]). It has not been cleared or approved by the FDA. [facility] is regulated under CLIA as certified to perform high-complexity testing. This test is used for clinical purpose. It should not be regarded as investigational or for research. References: 1) Inherited Thrombophilias in . ACOG Practice Bulletin. No. 197. [employer]. Obstet Gynecol 2018;132:e18???34. 2) Nick SR, Fela FR, Solomon PH, and Margie BUCHANAN. A common genetic variation in the 3'-untranslated region of the prothrombin gene is associated with elevated plasma prothrombin levels and an increase in venous thrombosis. Blood 88:3698-703,1996. 3) Kaela I, Cassi V, Sera C, Danielle Rankin. Prothrombin 23779I>T: 16 new cases, association with the 08773N>G polymorphism, and literature review. J Thromb Haemost. 2009;9:1585-7. Lupus Anticoag Panelon 05-29 aPTT Coag (Bld) [Time] s High 23.0-32.4 [facility] INR Coag (PPP) [Relative time] 1.2 {INR} Normal 0.9-1.3 [facility] PT Sec 13.0 sec Normal 9.7-13.0 [facility] Vital Signs Date Time Vital Sign Value Performing Clinician Aaroni ravi 12-04-2024 07:35-0400 Body mass index (BMI) [Ratio] 37.4 kg/m2 Vick [place] MD Work Phone: [facility] 12-04-2024 07:35-0400 Body temperature 97.4 [degF] Vick [place] MD Work Phone: [facility] 12-04-2024 07:35-0400 Body weight 128.82 kg Vikc [place] MD Work Phone: [facility] 12-04-2024 07:35-0400 Diastolic blood pressure 79 mm[Hg] Vick [place] MD Work Phone: [facility] 03-18-2025 07:35-0400 Heart rate 75 /min Vick [place] MD Work Phone: [facility] 12-04-2024 07:35-0400 Respiratory rate 18 /min Vick [place] MD Work Phone: [facility] 12-04-2024 07:35-0400 SaO2% (BldA) [Mass fraction] 94 % Vick [place] MD Work Phone: [facility] 12-04-2024 07:35-0400 Systolic blood pressure 121 mm[Hg] Vick [place] MD Work Phone: [facility] 07-29-2022 08:24-0500 Body height 185.42 cm DICTAPHONE TRANSCRIBER-C Floridalma Kavon DICTAPHONE TRANSCRIBER Work Phone: [facility] Work Phone: 07-29-2022 08:24-0500 Body mass index (BMI) [Ratio] 37.2 kg/m2 DICTAPHONE TRANSCRIBER-C Floridalma Kavon DICTAPHONE TRANSCRIBER Work Phone: [facility] Work Phone: 07-29-2022 08:24-0500 Body weight 127.91 kg DICTAPHONE TRANSCRIBER-C Floridalma Kavon DICTAPHONE TRANSCRIBER Work Phone: [facility] Work Phone: 07-29-2022 08:24-0500 Diastolic blood pressure 59 mm[Hg] DICTAPHONE TRANSCRIBER-C Floridalma Kavon DICTAPHONE TRANSCRIBER Work Phone: [facility] Work Phone: 07-29-2022 08:24-0500 Heart rate 68 /min DICTAPHONE TRANSCRIBER-C Floridalma Kavon DICTAPHONE TRANSCRIBER Work Phone: [facility] Work Phone: 07-29-2022 08:24-0500 Respiratory rate 16 /min DICTAPHONE TRANSCRIBER-C Floridalma Kavon DICTAPHONE TRANSCRIBER Work Phone: [facility] Work Phone: 07-29-2022 08:24-0500 Systolic blood pressure 103 mm[Hg] DICTAPHONE TRANSCRIBER-C Floridalma Kavon DICTAPHONE TRANSCRIBER Work Phone: [facility] Work Phone: 06-29-2022 13:21-0400 Body height 185.42 cm DICTAPHONE TRANSCRIBER-C Floridalma Kavon DICTAPHONE TRANSCRIBER Work Phone: [facility] Work Phone: 06-29-2022 13:21-0400 Body mass index (BMI) [Ratio] 36.9 kg/m2 DICTAPHONE TRANSCRIBER-C Floridalma Kavon DICTAPHONE TRANSCRIBER Work Phone: [facility] Work Phone: 06-29-2022 13:21-0400 Body temperature 97.3 [degF] DICTAPHONE TRANSCRIBER-C Floridalma Kavon DICTAPHONE TRANSCRIBER Work Phone: [facility] Work Phone: 06-29-2022 13:21-0400 Body weight 127.06 kg DICTAPHONE TRANSCRIBER-C Floridalma Kavon DICTAPHONE TRANSCRIBER Work Phone: [facility] Work Phone: 06-29-2022 13:21-0400 Diastolic blood pressure 79 mm[Hg] DICTAPHONE TRANSCRIBER-C Floridalma Kavon DICTAPHONE TRANSCRIBER Work Phone: [facility] Work Phone: 06-29-2022 13:21-0400 Heart rate 79 /min DICTAPHONE TRANSCRIBER-C Floridalma Kavno DICTAPHONE TRANSCRIBER Work Phone: [facility] Work Phone: 06-29-2022 13:21-0400 Respiratory rate 18 /min DICTAPHONE TRANSCRIBER-C Floridalma Kavon DICTAPHONE TRANSCRIBER Work Phone: [facility] Work Phone: 06-29-2022 13:21-0400 SaO2% (BldA) [Mass fraction] 96 % DICTAPHONE TRANSCRIBER-C Floridalma Kavon DICTAPHONE TRANSCRIBER Work Phone: [facility] Work Phone: 06-29-2022 13:21-0400 Systolic blood pressure 126 mm[Hg] DICTAPHONE TRANSCRIBER-C Floridalma Kavon DICTAPHONE TRANSCRIBER Work Phone: [facility] Work Phone: 06-18-2022 10:33-0400 Body mass index (BMI) [Ratio] 36.7 kg/m2 DICTAPHONE TRANSCRIBER-C Floridalma Kavon DICTAPHONE TRANSCRIBER Work Phone: [facility] Work Phone: 06-18-2022 10:33-0400 Body weight 126.32 kg DICTAPHONE TRANSCRIBER-C Floridalma Kavon DICTAPHONE TRANSCRIBER Work Phone: [facility] Work Phone: 06-18-2022 10:33-0400 Diastolic blood pressure 66 mm[Hg] DICTAPHONE TRANSCRIBER-C Floridalma Kavon DICTAPHONE TRANSCRIBER Work Phone: [facility] Work Phone: 06-18-2022 10:33-0400 Heart rate 64 /min DICTAPHONE TRANSCRIBER-C Floridalma Kavon DICTAPHONE TRANSCRIBER Work Phone: [facility] Work Phone: 06-18-2022 10:33-0400 Respiratory rate 16 /min DICTAPHONE TRANSCRIBER-C Floridalma Kavon DICTAPHONE TRANSCRIBER Work Phone: [facility] Work Phone: 06-18-2022 10:33-0400 Systolic blood pressure 110 mm[Hg] DICTAPHONE TRANSCRIBER-C Floridalma Kavon DICTAPHONE TRANSCRIBER Work Phone: [facility] Work Phone: Encounters Encounter Date Encounter Type Care Provider Facility Start: 07-10-2025 ambulatory Vick Washington [facility] Start: 07-10-2025 End: 07-10-2025 ambulatory Chalon Padmini Facility:[facility] Start: 06-28-2025 ambulatory Chalon Padmini Facility:[facility] Start: 03-30-2025 End: 03-30-2025 ambulatory Vick Washington MD Work Phone: -Laboratory Start: 03-30-2025 End: 03-30-[address] Vick Washington MD -Laboratory Work Phone: Start: 03-30-2025 End: 03-30-2025 ambulatory Chalon Padmini Facility:[facility] Start: 12-04-2024 End: 12-04-2024 Patient encounter procedure Renay Bruno DICTAPHONE TRANSCRIBER-C -[facility] Work Phone: Start: 12-04-2024 End: 12-04-2024 ambulatory Renay Bruno DICTAPHONE TRANSCRIBER Facility:[facility] Start: 10-26-2024 End: 10-26-2024 ambulatory Mila Perry Facility:[facility] Start: 09-28-2024 End: 09-28-2024 ambulatory Chalon Padmini Facility:[facility] Start: 08-29-2024 End: 08-29-2024 ambulatory Mila Perry Facility:[facility] Start: 08-20-2024 End: 08-20-2024 ambulatory Neto Dias Facility:[facility] [place] Start: 08-07-2024 End: 08-07-2024 ambulatory Chalon Padmini Facility:[facility] Start: 08-03-2024 End: 08-03-2024 ambulatory Chalon Padmini Facility:[facility] Start: 07-20-2024 End: 07-20-2024 ambulatory Chalon Padmini Facility:[facility] Start: 04-07-2023 End: 04-07-2023 Emergency department patient visit YU TREJO [facility] Start: 04-04-2023 End: 04-04-2023 Emergency department patient visit STORMY FRANCO [facility] Start: 07-29-2022 End: 07-29-2022 Patient encounter procedure DICTAPHONE TRANSCRIBER-C Floridalma Jacobson DICTAPHONE TRANSCRIBER Work Phone: [facility] Start: 07-28-2022 End: 07-28-2022 ambulatory DICTAPHONE TRANSCRIBER-C Floridalma Jacobson DICTAPHONE TRANSCRIBER Work Phone: [facility] Work Phone: Start: 07-28-2022 End: 07-28-2022 Patient encounter procedure DICTAPHONE TRANSCRIBER-C Floridalma Jacobson DICTAPHONE TRANSCRIBER Work Phone: [facility]-Sleep Lab Start: 07-09-2022 End: 07-09-2022 ambulatory DICTAPHONE TRANSCRIBER-C Floridalma Jacobson DICTAPHONE TRANSCRIBER Work Phone: [facility] Work Phone: Start: 07-09-2022 End: 07-09-2022 Patient encounter procedure DICTAPHONE TRANSCRIBER-Patricia Jacobson DICTAPHONE TRANSCRIBER Work Phone: [facility] Start: 07-05-2022 Non-patient / Non-visit DICTAPHONE TRANSCRIBER-C Naheed Jacobson DICTAPHONE TRANSCRIBER Work Phone: [facility] Start: 07-05-2022 End: 07-05-2022 ambulatory DICTAPHONE TRANSCRIBER-C Floridalma Jacobson DICTAPHONE TRANSCRIBER Work Phone: [facility] Work Phone: Start: 07-05-2022 End: 07-05-2022 Patient encounter procedure DICTAPHONE TRANSCRIBER-C Floridalma Jacobson DICTAPHONE TRANSCRIBER Work Phone: [facility]-Cardiovascul [facility] Services Start: 06-29-2022 End: 06-29-2022 Patient encounter procedure DICTAPHONE TRANSCRIBER-C Floridalma Jacobson DICTAPHONE TRANSCRIBER Work Phone: [facility]-Pulmonary Medicine [facility] Start: 06-18-2022 End: 06-18-2022 Patient encounter procedure DICTAPHONE TRANSCRIBER-C Floridalma Jacobson DICTAPHONE TRANSCRIBER Work Phone: [facility] Start: 06-15-2022 Non-patient / Non-visit DICTAPHONE TRANSCRIBER-C Naheed Jacobson DICTAPHONE TRANSCRIBER Work Phone: [facility] Start: 04-16-2022 Non-patient / Non-visit DICTAPHONE TRANSCRIBER-C Naheed Jacobson DICTAPHONE TRANSCRIBER Work Phone: [facility] Start: 04-16-2022 End: 04-16-2022 Patient encounter procedure DICTAPHONE TRANSCRIBER-C Floridalma Jacobson DICTAPHONE TRANSCRIBER Work Phone: [facility]Card[facility]ov[facility] Start: 07-20-2021 End: 07-21-2021 ambulatory PRISCILLA CHAVES MD Facility:[facility] Start: 07-09-2021 End: 07-09-2021 ambulatory MARTINA WALLER MD Facility:[facility] Start: 03-19-2021 End: 03-19-[address] BETSY PEREZ MD Facility:[facility] - Live Procedures Date Procedure Procedure [...] of perfusion of myocardium under exercise stress DICTAPHONE TRANSCRIBERJulio César Jacobson NP Work Phone: Plan of Treatment Date Care Activity Detail Author [facility] Work Phone: Payers Date Payer Category Payer Self-pay [id number] 2024 Medicare [id number] 2024 Unknown [id number] 2021 Unknown [id number] 2021 Unknown [id number] 2004 Unknown [facility] [id number] 1959 Unknown [id number] 1959 Unknown [id number] 1959 Unknown [id number] Private Health Insurance [facility] [id number] Private Health Insurance [facility] [id number] Unknown [id number] Unknown [id number] Unknown [id number] [id number] Unknown [id number] [id number] Unknown [id number] [id number] Unknown [id number] [id number] Unknown [id number] 2.16.840.1.507539.3.579.2.462 Unknown [id number] 2.16.840.1.715834.3.579.2.462 Unknown [id number] [id number] Unknown [id number] 2.16.840.1.178468.3.579.2.462 Unknown [id number] [id number] Unknown [id number] [id number] Unknown [id number] [id number] Social History Date Type Detail Facility Start: 06-29-2022 End: 07-29-2022 Tobacco smoking status MDIS Unknown if ever smoked [facility] Work Phone: Start: 1960 Sex Assigned At Male [facility] Start: 08-02-2024 Tobacco smoking stat us MDIS Never smoked tobacco (finding) [facility] Medical Equipment Procedure Code Equipment Code Equipment Origin al Text Equipment Identifier Dates MESH,VENTLEX ST ,LG 8CM FDA Start: 06-11-2024 Evaluation note 12-04-2024 Note Date & Type Note Facility 12-04-2024 Evaluation note Diagnosis Onset Date Resolution Obesity chronic December 04 7:39am MARISOL (obstructive sleep apnea) chronic December 04, 2024 7:39am [facility] Work Phone: Clinical Note 03-19-2021 Note Date [...] phalanx level. 2. No acute osseous pathology [facility] Evaluation note Note Date & Type Note Facility Evaluation note Diagnosis Onset Date MARISOL (obstructive sleep apnea) acute Palpitations acute Paroxysmal ventricular tachycardia acute Premature ventricular contraction acute Pulmonary embolism and infarction acute BMI 36.0-36.9,adult acute MARISOL (obstructive sleep apnea) acute Paroxysmal ventricular tachycardia acute [facility] Work Phone: Evaluation note Note Date & [...] contraction acute Pulmonary embolism and infarction acute [facility] Work Phone: Reason for referral (narrative) Note Date & Type Note Facility Reason for referral (narrative) No reason for referral information available [facility] Work Phone: Summary Purpose Family History No [...] sleep apnea PVT PVT Reason for Visit MARSIOL (obstructive sle ep apnea) Palpitations Paroxysmal ventricular [...] section and content) DATE CREATED AUTHOR 06/01/2019 [facility] DATE CREATED AUTHOR AUTHOR'S ORGANIZ ATION 08/05/2021 [facility] DATE CREATED AUTHOR AUTHOR'S ORGANIZ ATION 04/08/2023 [facility] DATE CREATED AUTHOR AUTHOR'S ORGANIZ ATION [facility]20[facility] Goals (unrecognized section and content) Goals [...] 2024 End: December 04, 2024 Renay Bruno NP, DICTAPHONE TRANSCRIBER-C Attending Provider Active Start: December 04, 2024 [...] BE BASED ON THE PRIMARY CLINICAL RECORDS. [facility] [employer] provides no warranty or guarantee of the accuracy or completeness of information in this document.
[2025-09-06 14:09] LABS: Testosterone, % Free 2.87 % (1.50-4.20); Testosterone, Free 19.03 ng/dL (5.00-21.00)
== END | disposition home or self-care (01) ==
LOC: LAB 06:04
PROVIDERS: PCP Family Medicine; Referring Provider Family Medicine; Visit Provider Family Medicine
DX: E34.9 Endocrine disorder, unspecified (principal)
CPT/HCPCS: 36415; 84402; 84403